=== PATIENT | female | born 1965 | race African-American/Black ===

== ENCOUNTER 2019-04-29 22:43 | Emergency (ER) | payer MEDICAID ==
[~2019-04-29] VITALS: Ht 165.1 cm; Wt 72.0 kg
[2019-04-29] MEDS ORDERED: DIPHENHYDRAMINE 50MG/ML VIAL IV ONE (23:15)
[2019-04-29] MEDS ORDERED: METOCLOPRAMIDE HCL 10MG/2ML VIAL IV ONE (23:15)
[2019-04-30 00:06] LABS: EOSINOPHILS % 0.6 % (0.0-5.0); HEMATOCRIT. 28.5 % (36.0-48.0); HEMOGLOBIN. 9.6 g/dL (12.0-16.0); LYMPHOCYTES % 21.3 % (20.0-50.0); MEAN CORPUSCULAR HEMOGLOBIN 29.5 pg (28.0-32.0); MEAN CORPUSCULAR VOLUME 87.8 fL (81.0-99.0); MEAN PLATELET VOLUME 10.3 fl (7.4-10.4); MONOCYTES % 9.9 % (2.0-8.0); NEUTROPHILS % 67.2 % (40.0-76.0); PLATELET 296 x1000/uL (130-400); RED BLOOD CELL COUNT 3.25 mill/uL (4.2-5.4); RED CELL DISTRIBUTION WIDTH 17.3 % (11.6-14.6)
[2019-04-30 00:12] LABS: CHLORIDE 93 mEq/L (98-107)
[2019-04-30 00:37] LABS: INR 0.9; PROTHROMBIN TIME 9.5 sec (9.6-11.0)
[2019-04-30 00:43] VITALS: BP 192/78
== END 2019-04-30 02:00 | disposition home or self-care (01) ==
LOC: ER 22:43
DX: R51 Headache (principal); I12.0 Hypertensive chronic kidney disease with stage 5 chronic kidney disease or end stage renal disease; N18.6 End stage renal disease; E11.22 Type 2 diabetes mellitus with diabetic chronic kidney disease; E11.65 Type 2 diabetes mellitus with hyperglycemia; D64.9 Anemia, unspecified; Z99.2 Dependence on renal dialysis; Z79.899 Other long term (current) drug therapy
CPT/HCPCS: 36415; 70450; 71045; 80053; 84484; 85025; 85610; 93005; 96374; 96375; 99284; J1200; J2765

== ENCOUNTER 2019-12-08 17:57 | Inpatient (IN) | payer MEDICAID ==
[~2019-12-08] VITALS: Ht 157.5 cm; Wt 55.1 kg
[2019-12-08 19:21] LABS: BASOPHILS % 0.7 % (0.0-2.0); EOSINOPHILS % 0.6 % (0.0-5.0); HEMATOCRIT. 36.8 % (36.0-48.0); LYMPHOCYTES % 18.7 % (20.0-50.0); MEAN CORPUSCULAR HEMOGLOBIN 25.6 pg (28.0-32.0); MEAN CORPUSCULAR VOLUME 78.9 fL (81.0-99.0); MEAN PLATELET VOLUME 9.4 fl (7.4-10.4); MONOCYTES % 8.5 % (2.0-8.0); NEUTROPHILS % 71.5 % (40.0-76.0); PLATELET 289 x1000/uL (130-400); RED BLOOD CELL COUNT 4.67 mill/uL (4.2-5.4); RED CELL DISTRIBUTION WIDTH 17.9 % (11.6-14.6)
[2019-12-08 19:27] LABS: CHLORIDE 98 mEq/L (98-107)
[2019-12-08 19:30] LABS: PROTHROMBIN TIME 9.9 sec (9.6-11.0)
[2019-12-08] MEDS ORDERED: ONDANSETRON HCL 4MG/2ML INJ IV STA (20:48)
[2019-12-08] MEDS ORDERED: MORPHINE SULFATE 4 MG/ML CPJ (NOT FOR IM USE) IV STA (20:48)
[2019-12-08] MEDS ORDERED: ACETAMINOPHEN 325MG TABLET PO PRN (23:00)
[2019-12-08] MEDS ORDERED: ENOXAPARIN 40MG/0.4ML SYR SUBCUT SCH (23:00)
[2019-12-08] MEDS ORDERED: ACETAMINOPHEN WITH CODEINE 300/30MG TABLET PO ONE (23:15)
[2019-12-09] MEDS: HYDROCODONE/ACETAMINOPHEN 5/325MG TABLET PO PRN (04:59)
[2019-12-09 05:51] LABS: BASOPHILS % 0.9 % (0.0-2.0); EOSINOPHILS % 1.3 % (0.0-5.0); HEMATOCRIT. 31.3 % (36.0-48.0); HEMOGLOBIN. 10.4 g/dL (12.0-16.0); MEAN CORPUSCULAR HEMOGLOBIN 26.3 pg (28.0-32.0); MEAN CORPUSCULAR VOLUME 79.6 fL (81.0-99.0); MEAN PLATELET VOLUME 9.6 fl (7.4-10.4); MONOCYTES % 11.4 % (2.0-8.0); NEUTROPHILS % 59.4 % (40.0-76.0); PLATELET 252 x1000/uL (130-400); RED BLOOD CELL COUNT 3.94 mill/uL (4.2-5.4); RED CELL DISTRIBUTION WIDTH 17.9 % (11.6-14.6)
[2019-12-09 06:04] LABS: CHLORIDE 98 mEq/L (98-107)
[2019-12-09 06:11] LABS: LDL CHOLESTEROL 113 mg/dL (5-100)
[2019-12-09 06:12] LABS: CREATINE KINASE 61 IU/L (26-192); HDL CHOLESTEROL 43 mg/dL (40-59)
[2019-12-09 06:15] LABS: CREATINE KINASE MB FRACTION < 1.0 ng/mL (0.5-3.6)
[2019-12-09] MEDS ORDERED: NA PHOS,M-B/NA PHOS,DI-BA ENEMA 118ML PR ONE (07:45)
[2019-12-09] MEDS ORDERED: LACTULOSE 20G/30ML UDC PO ONE (07:45)
[2019-12-09 08:00] VITALS: BP 186/69
[2019-12-09] MEDS ORDERED: LACTULOSE 20G/30ML UDC PO SCH (08:30)
[2019-12-09] MEDS ORDERED: NA PHOS,M-B/NA PHOS,DI-BA ENEMA 118ML PR SCH (08:30)
[2019-12-09] MEDS ORDERED: MINO10TA16 MT (09:15)
[2019-12-09] MEDS ORDERED: ATOR40TA70 MT (09:15)
[2019-12-09] MEDS ORDERED: LOPHC2 MT (09:15)
[2019-12-09] MEDS ORDERED: HYDR100T31 GT (09:15)
[2019-12-09] MEDS ORDERED: ISOS20TA57 PO (09:15)
[2019-12-09] MEDS ORDERED: CLON0.3T4 PO (09:15)
[2019-12-09] MEDS ORDERED: NIFE-32 PO (09:15)
[2019-12-09] MEDS ORDERED: OXYC-662 GT (09:15)
[2019-12-09] MEDS ORDERED: ALPR-340 PO (09:15)
[2019-12-09] MEDS: ENOXAPARIN 30MG/0.3ML SYR SUBCUT SCH (09:45)
[2019-12-09] MEDS: MORPHINE SULFATE 2 MG/ML CPJ (NOT FOR IM USE) IV PRN ×3 (09:46→21:11)
[2019-12-09] MEDS: CLONIDINE 0.1MG TABLET PO PRN (09:46)
[2019-12-09] MEDS ORDERED: REGADENOSON 0.4 MG/5 ML IV NR (10:15)
[2019-12-09] MEDS: ASPIRIN 81MG TABLET PO SCH (10:48)
[2019-12-09 11:22] VITALS: BP 186/69
[2019-12-09 12:00] VITALS: BP_SYST 122; BP_SYST 142; BP_DIAS 65; BP_DIAS 70
[2019-12-09] MEDS ORDERED: DEXTROSE 50% WATER 50ML SYRINGE IV PRN (13:00)
[2019-12-09] MEDS: INSULIN LISPRO 100 UNITS/ML SUBCUT SCH ×3 (13:23→21:00)
[2019-12-09] MEDS: ISOSORBIDE DINITRATE 10MG TABLET PO SCH ×2 (13:23→19:34)
[2019-12-09] MEDS: BLOOD SUGAR DIAGNOSTIC STRIP TEST SCH ×3 (13:26→21:11)
[2019-12-09] MEDS: HYDRALAZINE HCL 50MG TABLET PO SCH ×2 (15:29→22:55)
[2019-12-09 16:00] VITALS: BP 122/65
[2019-12-09 20:00] VITALS: BP 151/61
[2019-12-09 20:30] LABS: T4 FREE 1.68 ng/dL (0.76-1.46)
[2019-12-09] MEDS: ATORVASTATIN CALCIUM 40MG TABLET PO SCH (21:10)
[2019-12-09 22:09] LABS: CREATINE KINASE 55 IU/L (26-192)
[2019-12-09 22:10] LABS: CREATINE KINASE MB FRACTION < 1.0 ng/mL (0.5-3.6)
[2019-12-09] MEDS: ALPRAZOLAM 0.5 MG TABLET PO PRN (23:40)
[2019-12-10] VITALS: BP 159/67
[2019-12-10 04:00] VITALS: BP 163/74
[2019-12-10] MEDS: HYDRALAZINE HCL 50MG TABLET PO SCH ×2 (06:00→15:05)
[2019-12-10] MEDS: BLOOD SUGAR DIAGNOSTIC STRIP TEST SCH ×4 (06:43→20:58)
[2019-12-10 06:57] LABS: BASOPHILS % 0.6 % (0.0-2.0); EOSINOPHILS % 0.9 % (0.0-5.0); HEMATOCRIT. 31.6 % (36.0-48.0); HEMOGLOBIN. 10.3 g/dL (12.0-16.0); LYMPHOCYTES % 20.9 % (20.0-50.0); MEAN CORPUSCULAR VOLUME 79.5 fL (81.0-99.0); MEAN PLATELET VOLUME 9.6 fl (7.4-10.4); MONOCYTES % 11.6 % (2.0-8.0); PLATELET 261 x1000/uL (130-400); RED BLOOD CELL COUNT 3.97 mill/uL (4.2-5.4); RED CELL DISTRIBUTION WIDTH 17.8 % (11.6-14.6)
[2019-12-10] MEDS ORDERED: REGADENOSON 0.4 MG/5 ML IV ONE (07:56)
[2019-12-10 08:00] VITALS: BP 170/71
[2019-12-10] MEDS: ASPIRIN 81MG TABLET PO SCH (08:07)
[2019-12-10] MEDS: ISOSORBIDE DINITRATE 10MG TABLET PO SCH ×3 (08:08→19:00)
[2019-12-10] MEDS: ENOXAPARIN 30MG/0.3ML SYR SUBCUT SCH (08:09)
[2019-12-10] MEDS: INSULIN LISPRO 100 UNITS/ML SUBCUT SCH ×4 (08:10→20:58)
[2019-12-10 12:00] VITALS: BP 162/69
[2019-12-10] MEDS: MORPHINE SULFATE 2 MG/ML CPJ (NOT FOR IM USE) IV PRN (13:01)
[2019-12-10] MEDS: ALPRAZOLAM 0.5 MG TABLET PO PRN (15:05)
[2019-12-10] MEDS: CLONIDINE 0.1MG TABLET PO PRN (15:11)
[2019-12-10] MEDS: ONDANSETRON HCL 4MG/2ML INJ IV PRN (15:55)
[2019-12-10 16:00] VITALS: BP 120/68
[2019-12-10 20:00] VITALS: BP 189/70
[2019-12-10] MEDS: AMLODIPINE 10MG TABLET PO SCH (20:58)
[2019-12-10] MEDS: METOCLOPRAMIDE HCL 10MG/2ML VIAL IV PRN (20:59)
[2019-12-10] MEDS: ATORVASTATIN CALCIUM 40MG TABLET PO SCH (21:00)
[2019-12-10] MEDS: HYDRALAZINE HCL 100MG TABLET PO SCH (21:00)
[2019-12-11] VITALS (7 sets, daily range): BP systolic 152–199; BP diastolic 58–82
[2019-12-11] MEDS: MORPHINE SULFATE 2 MG/ML CPJ (NOT FOR IM USE) IV PRN ×3 (00:15→21:28)
[2019-12-11] MEDS: METOCLOPRAMIDE HCL 10MG/2ML VIAL IV PRN ×3 (02:31→20:10)
[2019-12-11] MEDS: ALPRAZOLAM 0.5 MG TABLET PO PRN (02:31)
[2019-12-11] MEDS: HYDRALAZINE HCL 100MG TABLET PO SCH ×3 (06:28→21:28)
[2019-12-11] MEDS: CLONIDINE 0.1MG TABLET PO PRN (06:28)
[2019-12-11] MEDS: BLOOD SUGAR DIAGNOSTIC STRIP TEST SCH ×4 (06:38→21:36)
[2019-12-11] MEDS: INSULIN LISPRO 100 UNITS/ML SUBCUT SCH ×4 (06:39→21:36)
[2019-12-11] MEDS: ASPIRIN 81MG TABLET PO SCH (08:26)
[2019-12-11] MEDS: AMLODIPINE 10MG TABLET PO SCH (08:26)
[2019-12-11] MEDS: ISOSORBIDE DINITRATE 10MG TABLET PO SCH ×3 (08:26→17:41)
[2019-12-11] MEDS: ENOXAPARIN 30MG/0.3ML SYR SUBCUT SCH (08:28)
[2019-12-11] MEDS ORDERED: CLONIDINE HCL 0.2MG/24HR PATCH TD SCH (09:00)
[2019-12-11] MEDS: PANTOPRAZOLE SODIUM 40 MG/VIAL IV SCH (12:38)
[2019-12-11] MEDS: LABETALOL HCL 200MG TABLET PO SCH ×2 (13:01→21:28)
[2019-12-11] MEDS: ATORVASTATIN CALCIUM 40MG TABLET PO SCH (21:28)
[2019-12-12] VITALS: BP 124/50
[2019-12-12 04:00] VITALS: BP 146/65
[2019-12-12] MEDS: HYDRALAZINE HCL 100MG TABLET PO SCH ×3 (05:05→21:02)
[2019-12-12] MEDS: MORPHINE SULFATE 2 MG/ML CPJ (NOT FOR IM USE) IV PRN ×3 (06:31→20:19)
[2019-12-12 06:44] LABS: BASOPHILS % 0.3 % (0.0-2.0); EOSINOPHILS % 0.1 % (0.0-5.0); HEMATOCRIT. 31.4 % (36.0-48.0); HEMOGLOBIN. 10.2 g/dL (12.0-16.0); LYMPHOCYTES % 11.9 % (20.0-50.0); MEAN CORPUSCULAR HEMOGLOBIN 25.9 pg (28.0-32.0); MEAN CORPUSCULAR VOLUME 79.6 fL (81.0-99.0); MEAN PLATELET VOLUME 9.9 fl (7.4-10.4); NEUTROPHILS % 79.7 % (40.0-76.0); PLATELET 279 x1000/uL (130-400); RED BLOOD CELL COUNT 3.94 mill/uL (4.2-5.4); RED CELL DISTRIBUTION WIDTH 18.4 % (11.6-14.6)
[2019-12-12] MEDS: INSULIN LISPRO 100 UNITS/ML SUBCUT SCH ×4 (07:51→20:20)
[2019-12-12] MEDS: BLOOD SUGAR DIAGNOSTIC STRIP TEST SCH ×4 (07:51→20:19)
[2019-12-12] MEDS: LABETALOL HCL 200MG TABLET PO SCH ×2 (09:00→20:19)
[2019-12-12] MEDS: AMLODIPINE 10MG TABLET PO SCH (09:00)
[2019-12-12] MEDS: ISOSORBIDE DINITRATE 10MG TABLET PO SCH ×3 (09:00→17:10)
[2019-12-12] MEDS ORDERED: IOHEXOL-300 100 ML BOTTLE ONE (09:02)
[2019-12-12] MEDS: ASPIRIN 81MG TABLET PO SCH (09:55)
[2019-12-12] MEDS: PANTOPRAZOLE SODIUM 40 MG/VIAL IV SCH (09:55)
[2019-12-12] MEDS: ENOXAPARIN 30MG/0.3ML SYR SUBCUT SCH (09:59)
[2019-12-12 12:00] VITALS: BP 165/61
[2019-12-12] MEDS: ALPRAZOLAM 0.5 MG TABLET PO PRN (15:06)
[2019-12-12] MEDS: HYDRALAZINE 20MG/ML VIAL IV PRN (15:06)
[2019-12-12] MEDS: ONDANSETRON HCL 4MG/2ML INJ IV PRN (15:39)
[2019-12-12 16:00] VITALS: BP 167/76
[2019-12-12] MEDS: CLONIDINE 0.1MG TABLET PO PRN (17:10)
[2019-12-12] MEDS: METOCLOPRAMIDE HCL 10MG/2ML VIAL IV PRN (17:16)
[2019-12-12] MEDS: HYDROCODONE/ACETAMINOPHEN 5/325MG TABLET PO PRN (17:16)
[2019-12-12 20:00] VITALS: BP 178/63
[2019-12-12] MEDS: ATORVASTATIN CALCIUM 40MG TABLET PO SCH (20:18)
[2019-12-13] VITALS (35 sets, daily range): BP systolic 92–201; BP diastolic 29–119
[2019-12-13] MEDS: HYDRALAZINE HCL 100MG TABLET PO SCH ×3 (05:01→23:02)
[2019-12-13] MEDS: ALPRAZOLAM 0.5 MG TABLET PO PRN (05:40)
[2019-12-13] MEDS: MORPHINE SULFATE 2 MG/ML CPJ (NOT FOR IM USE) IV PRN ×3 (06:03→22:10)
[2019-12-13] MEDS: ONDANSETRON HCL 4MG/2ML INJ IV PRN ×2 (06:06→17:49)
[2019-12-13] MEDS: HYDRALAZINE 20MG/ML VIAL IV PRN (07:42)
[2019-12-13] MEDS: ISOSORBIDE DINITRATE 10MG TABLET PO SCH ×3 (09:00→23:02)
[2019-12-13] MEDS: ENOXAPARIN 30MG/0.3ML SYR SUBCUT SCH (09:49)
[2019-12-13] MEDS: PANTOPRAZOLE SODIUM 40 MG/VIAL IV SCH (09:49)
[2019-12-13] MEDS: ASPIRIN 81MG TABLET PO SCH (09:50)
[2019-12-13] MEDS: LABETALOL HCL 200MG TABLET PO SCH ×2 (09:51→22:08)
[2019-12-13] MEDS: AMLODIPINE 10MG TABLET PO SCH (09:51)
[2019-12-13 10:00] LABS: BG BASE EXCESS -4.8 mmol/L (-2.0-2.0); BG CARBOXYHEMOGLOBIN 0.3 % (0.5-1.5); BG DEOXYHEMOGLOBIN 4.7 % (0.0-5.0); BG FRACTION INSPIRED OXYGEN 21; BG HCO3 ACT 20.6 mmol/L (22.0-26.0); BG METHEMOGLOBIN 0.5 % (0.0-1.5); BG OXYGEN SATURATION 95.3 % (92.0-98.5); BG OXYHEMOGLOBIN 94.5 % (94.0-97.0); BG PCO2 39.3 mmHg (35.0-45.0); BG PH 7.338 (7.350-7.450); BG PO2 86.2 mmHg (75.0-100.0); BG SAMPLE SITE RIGHT BRACHIAL; BG TOTAL HEMOGLOBIN 10.7 g/dL (12.0-18.0); BG VENT MODE ROOM AIR
[2019-12-13 10:45] LABS: HEMATOCRIT. 33.5 % (36.0-48.0); HEMOGLOBIN. 10.7 g/dL (12.0-16.0); MEAN CORPUSCULAR VOLUME 81.4 fL (81.0-99.0); RED BLOOD CELL COUNT 4.11 mill/uL (4.2-5.4); RED CELL DISTRIBUTION WIDTH 18.5 % (11.6-14.6)
[2019-12-13] MEDS: BLOOD SUGAR DIAGNOSTIC STRIP TEST SCH ×3 (11:26→21:00)
[2019-12-13] MEDS: INSULIN LISPRO 100 UNITS/ML SUBCUT SCH ×3 (11:46→22:09)
[2019-12-13] MEDS ORDERED: HEPARIN 100 UNITS/1 ML VIAL IVF PRN (12:00)
[2019-12-13 13:32] LABS: PLATELET ESTIMATE NORMAL
[2019-12-13 13:34] LABS: PLATELET 282 x1000/uL (130-400)
[2019-12-13] MEDS: ATORVASTATIN CALCIUM 40MG TABLET PO SCH (22:08)
[2019-12-14] VITALS (13 sets, daily range): BP systolic 107–175; BP diastolic 39–80
[2019-12-14 05:09] LABS: BASOPHILS % 0.8 % (0.0-2.0); EOSINOPHILS % 0.6 % (0.0-5.0); HEMATOCRIT. 31.4 % (36.0-48.0); HEMOGLOBIN. 10.3 g/dL (12.0-16.0); LYMPHOCYTES % 18.9 % (20.0-50.0); MEAN CORPUSCULAR HEMOGLOBIN 26.2 pg (28.0-32.0); MEAN PLATELET VOLUME 9.9 fl (7.4-10.4); MONOCYTES % 12.6 % (2.0-8.0); NEUTROPHILS % 67.1 % (40.0-76.0); PLATELET 258 x1000/uL (130-400); RED BLOOD CELL COUNT 3.93 mill/uL (4.2-5.4); RED CELL DISTRIBUTION WIDTH 17.9 % (11.6-14.6)
[2019-12-14] MEDS: HYDRALAZINE HCL 100MG TABLET PO SCH ×3 (06:03→21:15)
[2019-12-14] MEDS: BLOOD SUGAR DIAGNOSTIC STRIP TEST SCH ×4 (08:21→21:00)
[2019-12-14] MEDS: INSULIN LISPRO 100 UNITS/ML SUBCUT SCH ×4 (09:29→21:00)
[2019-12-14] MEDS: AMLODIPINE 10MG TABLET PO SCH (09:30)
[2019-12-14] MEDS: LABETALOL HCL 200MG TABLET PO SCH ×2 (09:30→20:18)
[2019-12-14] MEDS: ASPIRIN 81MG TABLET PO SCH (09:30)
[2019-12-14] MEDS: ISOSORBIDE DINITRATE 10MG TABLET PO SCH ×3 (09:30→18:12)
[2019-12-14] MEDS: FAMOTIDINE 20MG/2ML VIAL IV SCH (09:30)
[2019-12-14] MEDS: ENOXAPARIN 30MG/0.3ML SYR SUBCUT SCH (09:31)
[2019-12-14] MEDS: ONDANSETRON HCL 4MG/2ML INJ IV PRN (18:13)
[2019-12-14] MEDS: MORPHINE SULFATE 2 MG/ML CPJ (NOT FOR IM USE) IV PRN (18:14)
[2019-12-14] MEDS: ATORVASTATIN CALCIUM 40MG TABLET PO SCH (20:18)
[2019-12-14] MEDS: ALPRAZOLAM 0.5 MG TABLET PO PRN (21:15)
[2019-12-15] VITALS (8 sets, daily range): BP systolic 130–199; BP diastolic 53–89
[2019-12-15] MEDS ORDERED: ALPRAZOLAM 0.5 MG TABLET PO PRN (00:15)
[2019-12-15] MEDS: MORPHINE SULFATE 2 MG/ML CPJ (NOT FOR IM USE) IV PRN ×2 (03:09→10:47)
[2019-12-15] MEDS: HYDRALAZINE 20MG/ML VIAL IV PRN (04:32)
[2019-12-15] MEDS: HYDRALAZINE HCL 100MG TABLET PO SCH ×2 (06:42→13:22)
[2019-12-15 06:59] LABS: BASOPHILS % 1.1 % (0.0-2.0); HEMATOCRIT. 30.7 % (36.0-48.0); HEMOGLOBIN. 10.2 g/dL (12.0-16.0); LYMPHOCYTES % 14.5 % (20.0-50.0); MEAN CORPUSCULAR HEMOGLOBIN 26.5 pg (28.0-32.0); MEAN CORPUSCULAR VOLUME 79.7 fL (81.0-99.0); MEAN PLATELET VOLUME 10.3 fl (7.4-10.4); MONOCYTES % 11.8 % (2.0-8.0); NEUTROPHILS % 71.6 % (40.0-76.0); PLATELET 251 x1000/uL (130-400); RED BLOOD CELL COUNT 3.85 mill/uL (4.2-5.4); RED CELL DISTRIBUTION WIDTH 18.2 % (11.6-14.6)
[2019-12-15] MEDS: BLOOD SUGAR DIAGNOSTIC STRIP TEST SCH ×2 (07:36→13:14)
[2019-12-15] MEDS: FAMOTIDINE 20MG/2ML VIAL IV SCH (10:01)
[2019-12-15] MEDS: ENOXAPARIN 30MG/0.3ML SYR SUBCUT SCH (10:01)
[2019-12-15] MEDS: ISOSORBIDE DINITRATE 10MG TABLET PO SCH ×2 (10:02→13:21)
[2019-12-15] MEDS: LABETALOL HCL 200MG TABLET PO SCH (10:02)
[2019-12-15] MEDS: ASPIRIN 81MG TABLET PO SCH (10:02)
[2019-12-15] MEDS: AMLODIPINE 10MG TABLET PO SCH (10:03)
[2019-12-15] MEDS: INSULIN LISPRO 100 UNITS/ML SUBCUT SCH ×2 (10:04→13:23)
[2019-12-15] MEDS ORDERED: PRO1 MT (12:11)
[2019-12-15] MEDS ORDERED: ISOS20TA57 MT (12:11)
[2019-12-15] MEDS ORDERED: ATOR40TA70 MT (12:11)
[2019-12-15] MEDS ORDERED: HYDR100T26 MT (12:11)
[2019-12-15] MEDS ORDERED: OXYC-662 MT (12:11)
[2019-12-15] MEDS ORDERED: ALPR0.5T MT (12:11)
[2019-12-15] MEDS ORDERED: CLON0.3T4 MT (12:11)
== END 2019-12-15 14:16 | disposition home or self-care (01) | DRG 203 ==
LOC: ER 17:57 → 7WST 22:26 → EDBEDREQ 22:28 → EDBEDREQTM 22:28 → ENRESERV 12-09 07:45 → MICUSO 12-13 06:52 → 5EST 12-13 15:15
PROVIDERS: ADMIT Hospitalist; ATTEND Hospitalist
PROC: 5A1D70Z Performance of Urinary Filtration, Intermittent, Less than 6 Hours Per Day (ICD-10-PCS; 2019-12-10)
PROC: 5A1D70Z Performance of Urinary Filtration, Intermittent, Less than 6 Hours Per Day (ICD-10-PCS; 2019-12-12)
PROC: 02HV33Z Insertion of Infusion Device into Superior Vena Cava, Percutaneous Approach (ICD-10-PCS; principal; 2019-12-13)
PROC: B548ZZA Ultrasonography of Superior Vena Cava, Guidance (ICD-10-PCS; 2019-12-13)
PROC: 5A1D70Z Performance of Urinary Filtration, Intermittent, Less than 6 Hours Per Day (ICD-10-PCS; 2019-12-14)
DX: M94.0 Chondrocostal junction syndrome [Tietze] (principal); E11.22 Type 2 diabetes mellitus with diabetic chronic kidney disease; I12.0 Hypertensive chronic kidney disease with stage 5 chronic kidney disease or end stage renal disease; K86.1 Other chronic pancreatitis; N18.6 End stage renal disease; R56.9 Unspecified convulsions; R07.89 Other chest pain; I16.0 Hypertensive urgency; I25.10 Atherosclerotic heart disease of native coronary artery without angina pectoris; D64.9 Anemia, unspecified; E78.5 Hyperlipidemia, unspecified; K59.00 Constipation, unspecified; N28.89 Other specified disorders of kidney and ureter; G89.4 Chronic pain syndrome; Z99.2 Dependence on renal dialysis; Z79.899 Other long term (current) drug therapy
CPT/HCPCS: 36415; 36573; 36600; 71045; 74018; 74176; 74177; 76770; 78452; 80048; 80053; 80061; 82375; 82550; 82553; 82805; 82962; 83036; 83880; 84439; 84443; 84484; 85025; 85379; 93005; 93017; 93306; 93970; 96372; 96374; 96375; 99285; A9558; C1725; C1893; C9113; J0360; J1650; J1815; J2270; J2405; J2765; J2785; J3490; Q9967

== ENCOUNTER 2020-04-14 03:26 | Inpatient (IN) | payer MEDICAID ==
[~2020-04-14] VITALS: Ht 156.2 cm; Wt 63.5 kg
[~2020-04-14 03:26] MED LIST: ALPR-340 PO; ALPR0.5T MT; ATOR40TA70 MT; CLON0.3T4 MT; CLON0.3T4 PO; HYDR100T26 MT; HYDR100T31 GT; ISOS20TA57 MT; ISOS20TA57 PO; LOPHC2 MT; MINO10TA16 MT; NIFE-32 PO; OXYC-662 GT; OXYC-662 MT; PRO1 MT
[2020-04-14] MEDS ORDERED: ASPIRIN 81MG TABLET PO ONE (03:45)
[2020-04-14] MEDS ORDERED: NITROGLYCERIN 0.4MG TABLET SL SL PRN ×2 (03:45→06:15)
[2020-04-14] MEDS ORDERED: FUROSEMIDE 40MG/4ML VIAL IVP ONE ×2 (03:45→05:30)
[2020-04-14 04:09] LABS: BASOPHILS % 0.8 % (0.0-2.0); EOSINOPHILS % 1.5 % (0.0-5.0); HEMOGLOBIN. 11.9 g/dL (12.0-16.0); LYMPHOCYTES % 12.5 % (20.0-50.0); MEAN CORPUSCULAR VOLUME 79.6 fL (81.0-99.0); MEAN PLATELET VOLUME 9.1 fl (7.4-10.4); MONOCYTES % 6.8 % (2.0-8.0); NEUTROPHILS % 78.4 % (40.0-76.0); PLATELET 244 x1000/uL (130-400); RED CELL DISTRIBUTION WIDTH 18.3 % (11.6-14.6)
[2020-04-14 04:14] LABS: CHLORIDE 99 mEq/L (98-107)
[2020-04-14] MEDS ORDERED: ACETAMINOPHEN 325MG TABLET PO PRN ×2 (06:15)
[2020-04-14] MEDS ORDERED: IPRATROPIUM/ALBUTEROL 0.5-3(2.5)MG/3ML NEB ORI PRN (06:15)
[2020-04-14] MEDS ORDERED: DOCUSATE SODIUM 100MG CAPSULE PO PRN (06:15)
[2020-04-14] MEDS ORDERED: LORAZEPAM 0.5MG TABLET PO PRN (06:15)
[2020-04-14] MEDS ORDERED: ONDANSETRON HCL 4MG/2ML INJ IV PRN (06:15)
[2020-04-14] MEDS ORDERED: GUAIFENESIN 200MG/10ML SUGAR FREE UDC PO PRN (06:15)
[2020-04-14] MEDS ORDERED: MAGNESIUM/ALUMINUM HYDROXIDE/SIMETHICONE 30ML UDC PO PRN (06:15)
[2020-04-14] MEDS: METOPROLOL TARTRATE 25MG TABLET PO SCH ×2 (08:24→20:03)
[2020-04-14] MEDS: AMLODIPINE 10MG TABLET PO SCH ×2 (08:24→09:00)
[2020-04-14] MEDS: ENOXAPARIN 30MG/0.3ML SYR SUBCUT SCH (08:25)
[2020-04-14] MEDS: ASPIRIN 325MG EC TABLET PO SCH (09:15)
[2020-04-14] MEDS: ASCORBIC ACID 500 MG TABLET PO SCH ×2 (09:16→20:03)
[2020-04-14] MEDS: FAMOTIDINE 20MG TABLET PO SCH (09:16)
[2020-04-14] MEDS: SEVELAMER CARBONATE 800 MG TABLET PO SCH ×3 (09:16→17:13)
[2020-04-14] MEDS: BLOOD SUGAR DIAGNOSTIC STRIP TEST SCH ×4 (09:16→21:00)
[2020-04-14] MEDS: TRAMADOL 50MG TABLET PO PRN ×2 (09:20→19:53)
[2020-04-14] MEDS: ZINC SULFATE 220 MG ( 50 ) CAPSULE PO SCH (09:21)
[2020-04-14] MEDS: INSULIN LISPRO 100 UNITS/ML SUBCUT SCH ×4 (09:22→21:00)
[2020-04-14] MEDS: HYDRALAZINE HCL 50MG TABLET PO SCH ×2 (11:18→22:18)
[2020-04-14] MEDS: NITROGLYCERIN OINT 1GM/INCH UDPKT TD SCH ×2 (14:00→22:08)
[2020-04-14] MEDS: CLONIDINE 0.1MG TABLET PO PRN ×2 (15:30→17:14)
[2020-04-14 17:00] VITALS: BP 196/87
[2020-04-14] MEDS: DIPHENHYDRAMINE 50MG/ML VIAL IV PRN (17:29)
[2020-04-14 20:00] VITALS: BP 206/92
[2020-04-14] MEDS: MINOXIDIL 2.5MG TABLET PO SCH (20:03)
[2020-04-14 20:20] LABS: CREATINE KINASE 96 IU/L (26-192)
[2020-04-14 20:21] LABS: CREATINE KINASE MB FRACTION < 1.0 ng/mL (0.5-3.6)
[2020-04-14 21:00] VITALS: BP 197/82
[2020-04-14] MEDS ORDERED: PNEUMOCOCCAL 23-VAL P-SAC VAC 0.5 ML IM ONE (21:00)
[2020-04-14] MEDS ORDERED: INSULIN GLARGINE UD 100 UNITS/ML SYR SUBCUT SCH ×2 (22:00→23:00)
[2020-04-14 23:50] LABS: CREATINE KINASE 100 IU/L (26-192); CREATINE KINASE MB FRACTION < 1.0 ng/mL (0.5-3.6)
[2020-04-15] VITALS (8 sets, daily range): BP systolic 192–255; BP diastolic 85–100
[2020-04-15] MEDS: CLONIDINE 0.1MG TABLET PO PRN ×2 (01:08→17:19)
[2020-04-15] MEDS: DEXTROSE 50% WATER 50ML SYRINGE IV PRN ×2 (02:17→06:51)
[2020-04-15] MEDS: DIPHENHYDRAMINE 50MG/ML VIAL IV PRN ×3 (02:40→21:11)
[2020-04-15] MEDS: NITROGLYCERIN OINT 1GM/INCH UDPKT TD SCH ×3 (05:00→21:11)
[2020-04-15] MEDS: HYDRALAZINE HCL 50MG TABLET PO SCH ×2 (05:00→12:16)
[2020-04-15 06:36] LABS: BASOPHILS % 0.7 % (0.0-2.0); HEMATOCRIT. 32.6 % (36.0-48.0); LYMPHOCYTES % 8.6 % (20.0-50.0); MEAN CORPUSCULAR HEMOGLOBIN 26.6 pg (28.0-32.0); MEAN PLATELET VOLUME 9.4 fl (7.4-10.4); MONOCYTES % 6.1 % (2.0-8.0); NEUTROPHILS % 83.6 % (40.0-76.0); PLATELET 253 x1000/uL (130-400); RED BLOOD CELL COUNT 4.12 mill/uL (4.2-5.4); RED CELL DISTRIBUTION WIDTH 18.8 % (11.6-14.6)
[2020-04-15] MEDS: SEVELAMER CARBONATE 800 MG TABLET PO SCH ×3 (06:51→17:19)
[2020-04-15] MEDS: INSULIN LISPRO 100 UNITS/ML SUBCUT SCH ×4 (06:51→20:44)
[2020-04-15] MEDS: BLOOD SUGAR DIAGNOSTIC STRIP TEST SCH ×4 (06:51→20:44)
[2020-04-15] MEDS: ENOXAPARIN 30MG/0.3ML SYR SUBCUT SCH (08:00)
[2020-04-15] MEDS: ZINC SULFATE 220 MG ( 50 ) CAPSULE PO SCH (10:00)
[2020-04-15] MEDS: ASCORBIC ACID 500 MG TABLET PO SCH ×2 (10:00→21:12)
[2020-04-15] MEDS: ASPIRIN 325MG EC TABLET PO SCH (10:00)
[2020-04-15] MEDS: FAMOTIDINE 20MG TABLET PO SCH (10:01)
[2020-04-15] MEDS: MINOXIDIL 2.5MG TABLET PO SCH (10:01)
[2020-04-15] MEDS: AMLODIPINE 10MG TABLET PO SCH (10:02)
[2020-04-15] MEDS: METOPROLOL TARTRATE 25MG TABLET PO SCH ×2 (10:02→21:12)
[2020-04-15] MEDS ORDERED: MINOXIDIL 2.5MG TABLET PO NR (12:30)
[2020-04-15] MEDS: HYDRALAZINE HCL 100MG TABLET PO SCH ×2 (14:15→21:14)
[2020-04-15] MEDS: CLONIDINE 0.3MG TABLET PO SCH (18:40)
[2020-04-15] MEDS: ZOLPIDEM TARTRATE 5MG TABLET PO PRN (21:13)
[2020-04-15] MEDS: MINOXIDIL 10MG TABLET PO SCH (21:14)
[2020-04-15] MEDS: INSULIN GLARGINE UD 100 UNITS/ML SYR SUBCUT SCH (21:14)
[2020-04-16] VITALS (7 sets, daily range): BP systolic 145–188; BP diastolic 63–86
[2020-04-16] MEDS: CLONIDINE 0.3MG TABLET PO SCH ×4 (00:56→21:15)
[2020-04-16] MEDS: CLONIDINE 0.1MG TABLET PO PRN ×2 (00:57→21:15)
[2020-04-16] MEDS: HYDRALAZINE HCL 100MG TABLET PO SCH ×3 (05:59→21:16)
[2020-04-16] MEDS: NITROGLYCERIN OINT 1GM/INCH UDPKT TD SCH ×3 (06:00→21:21)
[2020-04-16] MEDS: BLOOD SUGAR DIAGNOSTIC STRIP TEST SCH ×4 (06:29→21:16)
[2020-04-16 07:21] LABS: BASOPHILS % 1.2 % (0.0-2.0); EOSINOPHILS % 1.8 % (0.0-5.0); HEMATOCRIT. 31.8 % (36.0-48.0); HEMOGLOBIN. 10.6 g/dL (12.0-16.0); LYMPHOCYTES % 17.9 % (20.0-50.0); MEAN CORPUSCULAR HEMOGLOBIN 26.3 pg (28.0-32.0); MEAN CORPUSCULAR VOLUME 78.8 fL (81.0-99.0); MEAN PLATELET VOLUME 9.5 fl (7.4-10.4); MONOCYTES % 10.9 % (2.0-8.0); NEUTROPHILS % 68.2 % (40.0-76.0); PLATELET 225 x1000/uL (130-400); RED BLOOD CELL COUNT 4.04 mill/uL (4.2-5.4); RED CELL DISTRIBUTION WIDTH 18.4 % (11.6-14.6)
[2020-04-16] MEDS: INSULIN LISPRO 100 UNITS/ML SUBCUT SCH ×4 (08:26→21:26)
[2020-04-16] MEDS: SEVELAMER CARBONATE 800 MG TABLET PO SCH ×3 (08:27→17:25)
[2020-04-16] MEDS: ZINC SULFATE 220 MG ( 50 ) CAPSULE PO SCH (08:42)
[2020-04-16] MEDS: ASCORBIC ACID 500 MG TABLET PO SCH ×2 (08:42→21:15)
[2020-04-16] MEDS: ASPIRIN 325MG EC TABLET PO SCH (08:42)
[2020-04-16] MEDS: FAMOTIDINE 20MG TABLET PO SCH (08:42)
[2020-04-16] MEDS: AMLODIPINE 10MG TABLET PO SCH (08:47)
[2020-04-16] MEDS: MINOXIDIL 10MG TABLET PO SCH ×2 (08:47→21:16)
[2020-04-16] MEDS: ENOXAPARIN 30MG/0.3ML SYR SUBCUT SCH (08:48)
[2020-04-16] MEDS: METOPROLOL TARTRATE 25MG TABLET PO SCH ×2 (08:48→21:15)
[2020-04-16] MEDS: DIPHENHYDRAMINE 50MG/ML VIAL IV PRN (16:48)
[2020-04-16] MEDS: ZOLPIDEM TARTRATE 5MG TABLET PO PRN (21:16)
[2020-04-16] MEDS: INSULIN GLARGINE UD 100 UNITS/ML SYR SUBCUT SCH (21:20)
[2020-04-17] VITALS: BP 148/70
[2020-04-17] MEDS: DIPHENHYDRAMINE 50MG/ML VIAL IV PRN ×2 (00:07→21:35)
[2020-04-17 04:00] VITALS: BP 164/75
[2020-04-17] MEDS: CLONIDINE 0.1MG TABLET PO PRN ×2 (04:26→21:35)
[2020-04-17 06:14] LABS: EOSINOPHILS % 2.5 % (0.0-5.0); HEMATOCRIT. 29.6 % (36.0-48.0); HEMOGLOBIN. 9.9 g/dL (12.0-16.0); MEAN CORPUSCULAR HEMOGLOBIN 26.4 pg (28.0-32.0); MEAN CORPUSCULAR VOLUME 78.7 fL (81.0-99.0); MEAN PLATELET VOLUME 9.6 fl (7.4-10.4); MONOCYTES % 10.2 % (2.0-8.0); NEUTROPHILS % 67.3 % (40.0-76.0); PLATELET 215 x1000/uL (130-400); RED BLOOD CELL COUNT 3.76 mill/uL (4.2-5.4); RED CELL DISTRIBUTION WIDTH 18.4 % (11.6-14.6)
[2020-04-17] MEDS: BLOOD SUGAR DIAGNOSTIC STRIP TEST SCH ×4 (06:26→21:18)
[2020-04-17] MEDS: HYDRALAZINE HCL 100MG TABLET PO SCH ×3 (06:26→14:17)
[2020-04-17] MEDS: NITROGLYCERIN OINT 1GM/INCH UDPKT TD SCH ×3 (06:26→14:17)
[2020-04-17] MEDS: CLONIDINE 0.3MG TABLET PO SCH ×3 (06:26→14:16)
[2020-04-17 08:00] VITALS: BP 158/79
[2020-04-17] MEDS: INSULIN LISPRO 100 UNITS/ML SUBCUT SCH ×4 (08:39→22:01)
[2020-04-17] MEDS: AMLODIPINE 10MG TABLET PO SCH (09:00)
[2020-04-17] MEDS: METOPROLOL TARTRATE 25MG TABLET PO SCH ×2 (09:00→21:34)
[2020-04-17] MEDS: MINOXIDIL 10MG TABLET PO SCH ×2 (09:00→21:34)
[2020-04-17] MEDS: ZINC SULFATE 220 MG ( 50 ) CAPSULE PO SCH (09:40)
[2020-04-17] MEDS: ASCORBIC ACID 500 MG TABLET PO SCH ×2 (09:40→21:34)
[2020-04-17] MEDS: SEVELAMER CARBONATE 800 MG TABLET PO SCH ×3 (09:40→17:15)
[2020-04-17] MEDS: ASPIRIN 325MG EC TABLET PO SCH (09:40)
[2020-04-17] MEDS: FAMOTIDINE 20MG TABLET PO SCH (09:40)
[2020-04-17] MEDS: ENOXAPARIN 30MG/0.3ML SYR SUBCUT SCH (09:41)
[2020-04-17 12:06] VITALS: BP 130/68
[2020-04-17] MEDS: ZOLPIDEM TARTRATE 5MG TABLET PO PRN ×2 (21:35→21:44)
[2020-04-17] MEDS: INSULIN GLARGINE UD 100 UNITS/ML SYR SUBCUT SCH (22:02)
[2020-04-18 01:47] VITALS: BP 171/81
[2020-04-18 04:00] VITALS: BP 128/63
[2020-04-18] MEDS: NITROGLYCERIN OINT 1GM/INCH UDPKT TD SCH (06:14)
[2020-04-18] MEDS: HYDRALAZINE HCL 100MG TABLET PO SCH (06:14)
[2020-04-18] MEDS: CLONIDINE 0.3MG TABLET PO SCH (06:14)
[2020-04-18] MEDS: BLOOD SUGAR DIAGNOSTIC STRIP TEST SCH (06:26)
[2020-04-18] MEDS: INSULIN LISPRO 100 UNITS/ML SUBCUT SCH (07:50)
[2020-04-18 08:34] VITALS: BP 166/78
[2020-04-18] MEDS: MINOXIDIL 10MG TABLET PO SCH (09:00)
[2020-04-18] MEDS ORDERED: NIFE90TA60 MT (09:15)
[2020-04-18] MEDS: FAMOTIDINE 20MG TABLET PO SCH (10:06)
[2020-04-18] MEDS: SEVELAMER CARBONATE 800 MG TABLET PO SCH (10:06)
[2020-04-18] MEDS: ASPIRIN 325MG EC TABLET PO SCH (10:07)
[2020-04-18] MEDS: AMLODIPINE 10MG TABLET PO SCH (10:07)
[2020-04-18] MEDS: METOPROLOL TARTRATE 25MG TABLET PO SCH (10:07)
[2020-04-18] MEDS: ZINC SULFATE 220 MG ( 50 ) CAPSULE PO SCH (10:07)
[2020-04-18] MEDS: ASCORBIC ACID 500 MG TABLET PO SCH (10:07)
[2020-04-18] MEDS: ENOXAPARIN 30MG/0.3ML SYR SUBCUT SCH (10:08)
[2020-04-18 10:48] VITALS: BP 146/68
[2020-04-26] MEDS ORDERED: ZOLP5TAB2 PO (19:14)
== END 2020-04-18 12:10 | disposition home or self-care (01) | DRG 133 ==
LOC: ER 03:26 → 6WST 04:44 → SUPCPDRO 15:06 → ENRESERV 15:11
PROVIDERS: ADMIT Internal Medicine; ATTEND Internal Medicine
PROC: 5A1D70Z Performance of Urinary Filtration, Intermittent, Less than 6 Hours Per Day (ICD-10-PCS; 2020-04-14)
PROC: 5A1D70Z Performance of Urinary Filtration, Intermittent, Less than 6 Hours Per Day (ICD-10-PCS; principal; 2020-04-15)
PROC: 5A1D70Z Performance of Urinary Filtration, Intermittent, Less than 6 Hours Per Day (ICD-10-PCS; 2020-04-17)
DX: J96.00 Acute respiratory failure, unspecified whether with hypoxia or hypercapnia (principal); I13.2 Hypertensive heart and chronic kidney disease with heart failure and with stage 5 chronic kidney disease, or end stage renal disease; E11.22 Type 2 diabetes mellitus with diabetic chronic kidney disease; N18.6 End stage renal disease; K76.1 Chronic passive congestion of liver; E11.65 Type 2 diabetes mellitus with hyperglycemia; I16.1 Hypertensive emergency; I50.43 Acute on chronic combined systolic (congestive) and diastolic (congestive) heart failure; D63.8 Anemia in other chronic diseases classified elsewhere; Z99.2 Dependence on renal dialysis; Z79.899 Other long term (current) drug therapy; R74.0 Nonspecific elevation of levels of transaminase and lactic acid dehydrogenase [LDH]
CPT/HCPCS: 36415; 71045; 80048; 80053; 80061; 82550; 82553; 82962; 83036; 83880; 84484; 85025; 90732; 93005; 93970; 99291; J1200; J1650; J1815; J1940

== ENCOUNTER 2020-04-24 00:55 | Emergency (ER) | payer MEDICAID ==
[~2020-04-24] VITALS: Ht 160 cm; Wt 64.0 kg
[~2020-04-24 00:55] MED LIST changes: -ALPR-340 PO; -ALPR0.5T MT; -CLON0.3T4 PO; -HYDR100T26 MT; -ISOS20TA57 MT; -NIFE-32 PO; +NIFE90TA60 MT; -OXYC-662 GT; -OXYC-662 MT; -PRO1 MT
[2020-04-24] MEDS ORDERED: ASPIRIN 81MG TABLET PO ONE (02:00)
[2020-04-24 03:08] LABS: BASOPHILS % 1.1 % (0.0-2.0); EOSINOPHILS % 1.7 % (0.0-5.0); HEMATOCRIT. 30.6 % (36.0-48.0); HEMOGLOBIN. 10.3 g/dL (12.0-16.0); LYMPHOCYTES % 11.8 % (20.0-50.0); MEAN CORPUSCULAR HEMOGLOBIN 26.6 pg (28.0-32.0); MEAN CORPUSCULAR VOLUME 79.2 fL (81.0-99.0); MEAN PLATELET VOLUME 9.3 fl (7.4-10.4); MONOCYTES % 8.5 % (2.0-8.0); NEUTROPHILS % 76.9 % (40.0-76.0); PLATELET 336 x1000/uL (130-400); RED BLOOD CELL COUNT 3.87 mill/uL (4.2-5.4); RED CELL DISTRIBUTION WIDTH 19.7 % (11.6-14.6)
[2020-04-24 03:10] LABS: CHLORIDE 98 mEq/L (98-107)
[2020-04-24] MEDS ORDERED: LORAZEPAM 2MG/ML CPJ IV ONE (04:15)
[2020-04-24] MEDS ORDERED: HYDROCODONE/ACETAMINOPHEN 5/325MG TABLET PO ONE (05:00)
[2020-04-24 05:30] VITALS: BP 153/79
[2020-04-26] MEDS ORDERED: ZOLP5TAB2 PO (19:14)
== END 2020-04-24 06:01 | disposition home or self-care (01) ==
LOC: ER 00:55
DX: I12.0 Hypertensive chronic kidney disease with stage 5 chronic kidney disease or end stage renal disease (principal); E11.22 Type 2 diabetes mellitus with diabetic chronic kidney disease; N18.6 End stage renal disease; Z99.2 Dependence on renal dialysis; F41.9 Anxiety disorder, unspecified; Z79.899 Other long term (current) drug therapy
CPT/HCPCS: 36415; 71045; 80053; 83880; 84484; 85025; 93005; 96374; 99285; J2060; Z7610

== ENCOUNTER 2020-04-30 12:01 | Inpatient (IN) | payer MEDICAID ==
[~2020-04-30] VITALS: Ht 154.9 cm; Wt 49.0 kg
[~2020-04-30 12:01] MED LIST changes: +ZOLP5TAB2 PO
[2020-04-30 13:00] LABS: CHLORIDE 84 mEq/L (98-107)
[2020-04-30 13:01] LABS: HEMATOCRIT. 29.2 % (36.0-48.0); HEMOGLOBIN. 9.6 g/dL (12.0-16.0); MEAN CORPUSCULAR HEMOGLOBIN 26.8 pg (28.0-32.0); MEAN CORPUSCULAR VOLUME 81.3 fL (81.0-99.0); MEAN PLATELET VOLUME 9.3 fl (7.4-10.4); PLATELET 374 x1000/uL (130-400); RED BLOOD CELL COUNT 3.59 mill/uL (4.2-5.4); RED CELL DISTRIBUTION WIDTH 20.1 % (11.6-14.6)
[2020-04-30 13:29] LABS: BG CARBOXYHEMOGLOBIN 0.5 % (0.5-1.5); BG DEOXYHEMOGLOBIN 11.6 % (0.0-5.0); BG FRACTION INSPIRED OXYGEN 40; BG HCO3 ACT 29.4 mmol/L (22.0-26.0); BG OXYGEN SATURATION 88.3 % (92.0-98.5); BG OXYHEMOGLOBIN 87.9 % (94.0-97.0); BG PCO2 43.2 mmHg (35.0-45.0); BG PH 7.451 (7.350-7.450); BG SAMPLE SITE RIGHT BRACHIAL; BG TOTAL HEMOGLOBIN 8.8 g/dL (12.0-18.0); BG VENT MODE NASAL CANNULA
[2020-04-30 14:00] LABS: PLATELET ESTIMATE NORMAL
[2020-04-30] MEDS ORDERED: SODIUM CHLORIDE 0.9% 500 ML IV ONE (14:22)
[2020-04-30] MEDS ORDERED: MORPHINE SULFATE 4 MG/ML CPJ (NOT FOR IM USE) IV ONE (14:30)
[2020-04-30] MEDS ORDERED: INSULIN REGULAR (HUMULIN R) 300UNITS/3ML IV ONE (14:30)
[2020-04-30] MEDS ORDERED: LEVOFLOXACIN 750MG PREMIX 150 ML IV ONE (15:00)
[2020-04-30] MEDS ORDERED: DOCUSATE SODIUM 100MG CAPSULE PO PRN (18:30)
[2020-04-30] MEDS ORDERED: ACETAMINOPHEN 650MG/20.3ML UDC GT PRN ×2 (18:30)
[2020-04-30] MEDS ORDERED: ONDANSETRON HCL 4MG/2ML INJ IV PRN (18:30)
[2020-04-30] MEDS ORDERED: ACETAMINOPHEN 650MG SUPP PR PRN ×2 (18:30)
[2020-04-30] MEDS ORDERED: GUAIFENESIN 200MG/10ML SUGAR FREE UDC PO PRN (18:30)
[2020-04-30] MEDS ORDERED: DIPHENHYDRAMINE 50MG/ML VIAL IV PRN (18:30)
[2020-04-30] MEDS ORDERED: MAGNESIUM/ALUMINUM HYDROXIDE/SIMETHICONE 30ML UDC PO PRN (18:30)
[2020-04-30] MEDS: ENOXAPARIN 30MG/0.3ML SYR SUBCUT SCH (18:51)
[2020-04-30] MEDS ORDERED: DEXTROSE 50% WATER 50ML SYRINGE IV PRN (19:00)
[2020-04-30] MEDS: CLONIDINE 0.1MG TABLET PO PRN (20:09)
[2020-04-30 21:20] VITALS: BP 143/103
[2020-04-30] MEDS: MORPHINE SULFATE 2 MG/ML CPJ (NOT FOR IM USE) IV PRN (21:42)
[2020-04-30] MEDS: INSULIN LISPRO 100 UNITS/ML SUBCUT SCH (21:43)
[2020-04-30] MEDS: SODIUM CHLORIDE 0.9% INJ 3ML FLUSH IVF SCH (21:43)
[2020-04-30] MEDS: BLOOD SUGAR DIAGNOSTIC STRIP TEST SCH (21:43)
[2020-04-30 23:13] LABS: D-DIMER 1.65 mg/L FEU (<0.50); PROTHROMBIN TIME 10.3 sec (9.6-11.0)
[2020-04-30 23:20] LABS: CREATINE KINASE 137 IU/L (26-192)
[2020-04-30 23:21] LABS: CREATINE KINASE MB FRACTION < 1.0 ng/mL (0.5-3.6)
[2020-04-30] MEDS: METOCLOPRAMIDE HCL 10MG/2ML VIAL IV SCH (23:30)
[2020-05-01] VITALS: BP 148/72
[2020-05-01 04:00] VITALS: BP 185/80
[2020-05-01] MEDS: MORPHINE SULFATE 2 MG/ML CPJ (NOT FOR IM USE) IV PRN ×3 (04:01→19:33)
[2020-05-01] MEDS: SODIUM CHLORIDE 0.9% INJ 3ML FLUSH IVF SCH ×3 (06:26→22:07)
[2020-05-01] MEDS: METOCLOPRAMIDE HCL 10MG/2ML VIAL IV SCH ×4 (06:26→23:06)
[2020-05-01] MEDS: BLOOD SUGAR DIAGNOSTIC STRIP TEST SCH ×4 (06:41→21:00)
[2020-05-01] MEDS ORDERED: MORPHINE SULFATE 2 MG/ML CPJ (NOT FOR IM USE) IV NR (07:12)
[2020-05-01 08:00] VITALS: BP 160/67
[2020-05-01] MEDS: INSULIN LISPRO 100 UNITS/ML SUBCUT SCH ×4 (08:10→22:36)
[2020-05-01] MEDS ORDERED: BISACODYL 5MG TABLET PO SCH (08:45)
[2020-05-01] MEDS ORDERED: BISACODYL 10MG SUPP PR PRN (08:45)
[2020-05-01] MEDS ORDERED: BISACODYL 5MG TABLET PO PRN (08:45)
[2020-05-01 10:48] LABS: CHLORIDE 96 mEq/L (98-107)
[2020-05-01 10:49] LABS: BASOPHILS % 0.6 % (0.0-2.0); EOSINOPHILS % 0.1 % (0.0-5.0); HEMATOCRIT. 26.3 % (36.0-48.0); HEMOGLOBIN. 8.7 g/dL (12.0-16.0); LYMPHOCYTES % 8.1 % (20.0-50.0); MEAN CORPUSCULAR HEMOGLOBIN 26.9 pg (28.0-32.0); MEAN CORPUSCULAR VOLUME 80.9 fL (81.0-99.0); MEAN PLATELET VOLUME 9.2 fl (7.4-10.4); MONOCYTES % 6.8 % (2.0-8.0); NEUTROPHILS % 84.4 % (40.0-76.0); PLATELET 310 x1000/uL (130-400); RED BLOOD CELL COUNT 3.25 mill/uL (4.2-5.4); RED CELL DISTRIBUTION WIDTH 19.3 % (11.6-14.6)
[2020-05-01 10:55] LABS: LDL CHOLESTEROL 94 mg/dL (5-100)
[2020-05-01 10:56] LABS: CREATINE KINASE 72 IU/L (26-192); T4 FREE 1.31 ng/dL (0.76-1.46)
[2020-05-01 10:57] LABS: HDL CHOLESTEROL 65 mg/dL (40-59)
[2020-05-01 10:59] LABS: CREATINE KINASE MB FRACTION < 1.0 ng/mL (0.5-3.6)
[2020-05-01 12:00] VITALS: BP 177/65
[2020-05-01] MEDS: ACETAMINOPHEN 325MG TABLET PO PRN (13:18)
[2020-05-01 16:00] VITALS: BP 149/95
[2020-05-01] MEDS: ENOXAPARIN 30MG/0.3ML SYR SUBCUT SCH (18:11)
[2020-05-01 20:00] VITALS: BP 155/87
[2020-05-02] VITALS: BP 183/97
[2020-05-02] MEDS: HYDROCODONE/ACETAMINOPHEN 5/325MG TABLET PO PRN ×3 (01:03→21:32)
[2020-05-02] MEDS: CLONIDINE 0.1MG TABLET PO PRN (01:04)
[2020-05-02 04:00] VITALS: BP 194/66
[2020-05-02] MEDS: HYDRALAZINE HCL 50MG TABLET PO SCH ×3 (05:56→21:05)
[2020-05-02] MEDS: METOCLOPRAMIDE HCL 10MG/2ML VIAL IV SCH ×4 (05:56→21:05)
[2020-05-02] MEDS: SODIUM CHLORIDE 0.9% INJ 3ML FLUSH IVF SCH ×3 (05:56→21:06)
[2020-05-02] MEDS: BLOOD SUGAR DIAGNOSTIC STRIP TEST SCH ×4 (06:52→21:25)
[2020-05-02] MEDS ORDERED: CLONIDINE 0.1MG TABLET PO SCH (08:00)
[2020-05-02] MEDS: INSULIN LISPRO 100 UNITS/ML SUBCUT SCH ×4 (08:20→23:33)
[2020-05-02 08:37] VITALS: BP 204/90
[2020-05-02] MEDS: ACETAMINOPHEN 325MG TABLET PO PRN (08:44)
[2020-05-02] MEDS: CLONIDINE 0.1MG TABLET PO SCH ×3 (09:30→21:05)
[2020-05-02 12:30] VITALS: BP 194/75
[2020-05-02] MEDS ORDERED: IOHEXOL-350 100 ML BOTTLE ONE (14:47)
[2020-05-02] MEDS: AZITHROMYCIN 500 MG in DEXT 5% WATER 250 ML IV SCH (16:12)
[2020-05-02] MEDS: PIPERACILLIN/TAZOBACTAM 2.25 G in DEXTROSE 5% WATER 50 ML IV SCH ×3 (16:12→21:06)
[2020-05-02 16:30] VITALS: BP 156/65
[2020-05-02] MEDS: ENOXAPARIN 30MG/0.3ML SYR SUBCUT SCH (17:54)
[2020-05-02 20:00] VITALS: BP 200/64
[2020-05-03] VITALS: BP 161/61
[2020-05-03 04:00] VITALS: BP 193/97
[2020-05-03] MEDS: METOCLOPRAMIDE HCL 10MG/2ML VIAL IV SCH ×3 (05:42→21:33)
[2020-05-03] MEDS: SODIUM CHLORIDE 0.9% INJ 3ML FLUSH IVF SCH ×3 (05:42→21:34)
[2020-05-03] MEDS: PIPERACILLIN/TAZOBACTAM 2.25 G in DEXTROSE 5% WATER 50 ML IV SCH ×3 (05:43→21:34)
[2020-05-03] MEDS: BLOOD SUGAR DIAGNOSTIC STRIP TEST SCH ×4 (05:43→21:34)
[2020-05-03] MEDS: HYDRALAZINE HCL 50MG TABLET PO SCH ×2 (05:43→17:46)
[2020-05-03] MEDS: CLONIDINE 0.1MG TABLET PO SCH ×2 (05:43→17:44)
[2020-05-03] MEDS: HYDROCODONE/ACETAMINOPHEN 5/325MG TABLET PO PRN (06:04)
[2020-05-03] MEDS: INSULIN LISPRO 100 UNITS/ML SUBCUT SCH ×4 (06:52→21:57)
[2020-05-03 07:51] VITALS: BP 170/55
[2020-05-03 10:59] LABS: BASOPHILS % 1.3 % (0.0-2.0); EOSINOPHILS % 1.5 % (0.0-5.0); HEMATOCRIT. 25.4 % (36.0-48.0); HEMOGLOBIN. 8.8 g/dL (12.0-16.0); LYMPHOCYTES % 9.6 % (20.0-50.0); MEAN CORPUSCULAR HEMOGLOBIN 27.3 pg (28.0-32.0); MEAN CORPUSCULAR VOLUME 78.6 fL (81.0-99.0); MEAN PLATELET VOLUME 8.9 fl (7.4-10.4); MONOCYTES % 8.1 % (2.0-8.0); NEUTROPHILS % 79.5 % (40.0-76.0); PLATELET 322 x1000/uL (130-400); RED BLOOD CELL COUNT 3.23 mill/uL (4.2-5.4); RED CELL DISTRIBUTION WIDTH 19.5 % (11.6-14.6)
[2020-05-03 12:00] VITALS: BP 101/71
[2020-05-03 16:00] VITALS: BP 111/91
[2020-05-03] MEDS: AZITHROMYCIN 500 MG in DEXT 5% WATER 250 ML IV SCH (17:44)
[2020-05-03 20:00] VITALS: BP 91/69
[2020-05-03] MEDS: ENOXAPARIN 30MG/0.3ML SYR SUBCUT SCH (21:33)
[2020-05-03] MEDS: MORPHINE SULFATE 2 MG/ML CPJ (NOT FOR IM USE) IV PRN (21:35)
[2020-05-03] MEDS ORDERED: AZIT500T3 MT (22:36)
[2020-05-03] MEDS ORDERED: HYDR-4135 PO (22:36)
[2020-05-03] MEDS ORDERED: METO5TAB86 MT (22:36)
[2020-05-03] MEDS ORDERED: CLON0.1T14 PO (22:36)
[2020-05-04] VITALS: BP 190/70
[2020-05-04] MEDS: METOCLOPRAMIDE HCL 10MG/2ML VIAL IV SCH ×3 (01:02→11:50)
[2020-05-04] MEDS: CLONIDINE 0.1MG TABLET PO SCH ×3 (01:03→11:54)
[2020-05-04] MEDS: HYDRALAZINE HCL 50MG TABLET PO SCH ×2 (01:03→05:55)
[2020-05-04 04:00] VITALS: BP 196/67
[2020-05-04] MEDS: SODIUM CHLORIDE 0.9% INJ 3ML FLUSH IVF SCH ×2 (05:54→15:23)
[2020-05-04] MEDS: PIPERACILLIN/TAZOBACTAM 2.25 G in DEXTROSE 5% WATER 50 ML IV SCH ×2 (05:54→15:22)
[2020-05-04] MEDS: BLOOD SUGAR DIAGNOSTIC STRIP TEST SCH ×2 (06:49→12:06)
[2020-05-04] MEDS: INSULIN LISPRO 100 UNITS/ML SUBCUT SCH ×2 (06:49→12:45)
[2020-05-04 08:00] VITALS: BP 183/49
[2020-05-04] MEDS ORDERED: REGADENOSON 0.4 MG/5 ML IV NR (08:00)
[2020-05-04] MEDS ORDERED: REGADENOSON 0.4 MG/5 ML IV ONE (10:38)
[2020-05-04] MEDS: ACETAMINOPHEN 325MG TABLET PO PRN (11:51)
[2020-05-04 12:00] VITALS: BP 226/70
[2020-05-04] MEDS ORDERED: HYDRALAZINE HCL 100MG TABLET PO SCH (14:00)
[2020-05-04] MEDS: AZITHROMYCIN 500 MG in DEXT 5% WATER 250 ML IV SCH (15:22)
[2020-05-04 16:15] VITALS: BP 189/60
[2020-05-04] MEDS: CLONIDINE 0.1MG TABLET PO PRN (16:18)
[2020-05-04 16:33] VITALS: BP 186/60
== END 2020-05-04 17:35 | disposition home or self-care (01) | DRG 198 ==
LOC: ER 12:17 → 7WST 14:57 → EDBEDREQTM 14:59 → EDBEDREQ 14:59 → ENRESERV 19:52 → 8WST 05-02 19:03
PROVIDERS: ADMIT Family Medicine; ATTEND Family Medicine
PROC: 5A1D70Z Performance of Urinary Filtration, Intermittent, Less than 6 Hours Per Day (ICD-10-PCS; principal; 2020-04-30)
PROC: 5A1D70Z Performance of Urinary Filtration, Intermittent, Less than 6 Hours Per Day (ICD-10-PCS; 2020-05-02)
PROC: 5A1D70Z Performance of Urinary Filtration, Intermittent, Less than 6 Hours Per Day (ICD-10-PCS; 2020-05-04)
PROC: 02HV33Z Insertion of Infusion Device into Superior Vena Cava, Percutaneous Approach (ICD-10-PCS; 2020-05-04)
PROC: B5181ZA Fluoroscopy of Superior Vena Cava using Low Osmolar Contrast, Guidance (ICD-10-PCS; 2020-05-04)
PROC: B548ZZA Ultrasonography of Superior Vena Cava, Guidance (ICD-10-PCS; 2020-05-04)
DX: I24.9 Acute ischemic heart disease, unspecified (principal); J96.01 Acute respiratory failure with hypoxia; I13.2 Hypertensive heart and chronic kidney disease with heart failure and with stage 5 chronic kidney disease, or end stage renal disease; J18.9 Pneumonia, unspecified organism; E46 Unspecified protein-calorie malnutrition; E11.22 Type 2 diabetes mellitus with diabetic chronic kidney disease; K31.84 Gastroparesis; E11.43 Type 2 diabetes mellitus with diabetic autonomic (poly)neuropathy; I27.20 Pulmonary hypertension, unspecified; E87.1 Hypo-osmolality and hyponatremia; N18.6 End stage renal disease; E11.65 Type 2 diabetes mellitus with hyperglycemia; I50.9 Heart failure, unspecified; D63.8 Anemia in other chronic diseases classified elsewhere; I16.1 Hypertensive emergency; Y95 Nosocomial condition; Z20.828 Contact with and (suspected) exposure to other viral communicable diseases; F41.9 Anxiety disorder, unspecified; Z79.899 Other long term (current) drug therapy; Z99.2 Dependence on renal dialysis
CPT/HCPCS: 36415; 36573; 36600; 71045; 71275; 74018; 76937; 78452; 80048; 80053; 80061; 82375; 82550; 82553; 82805; 82962; 83036; 83880; 84439; 84443; 84484; 85025; 85379; 93005; 93017; 93306; 99285; A9500; C1725; J0456; J1200; J1650; J1815; J1956; J2270; J2405; J2543; J2765; J2785; J7030; J7060; Q9967; U0003-CS

== ENCOUNTER 2020-05-21 22:30 | Inpatient (IN) | payer MEDICAID ==
[~2020-05-21] VITALS: Ht 165.1 cm; Wt 51.0 kg
[~2020-05-21 22:30] MED LIST changes: +AZIT500T3 MT; +CLON0.1T14 PO; -CLON0.3T4 MT; +HYDR-4135 PO; -HYDR100T31 GT; -ISOS20TA57 PO; -LOPHC2 MT; +METO5TAB86 MT; -MINO10TA16 MT; -NIFE90TA60 MT; -ZOLP5TAB2 PO
[2020-05-21] MEDS ORDERED: ONDANSETRON HCL 4MG/2ML INJ IV STA (22:38)
[2020-05-21] MEDS ORDERED: ALBUTEROL (0.083%) 2.5MG/3ML NEB HHN STA (22:43)
[2020-05-21] MEDS ORDERED: IPRATROPIUM BROMIDE (0.02%) 0.5MG/2.5ML NEB HHN STA (22:43)
[2020-05-21] MEDS ORDERED: LORAZEPAM 2MG/ML CPJ IV ONE (23:30)
[2020-05-21] MEDS ORDERED: HYDRALAZINE 20MG/ML VIAL IV ONE (23:30)
[2020-05-21 23:31] LABS: BG BASE EXCESS -1.4 mmol/L (-2.0-2.0); BG BILEVEL POS AIRWAY PRESSURE 15/5; BG CARBOXYHEMOGLOBIN 0.8 % (0.5-1.5); BG DEOXYHEMOGLOBIN 5.3 % (0.0-5.0); BG FRACTION INSPIRED OXYGEN 100; BG HCO3 ACT 24.6 mmol/L (22.0-26.0); BG METHEMOGLOBIN 0.2 % (0.0-1.5); BG OXYGEN SATURATION 94.6 % (92.0-98.5); BG OXYHEMOGLOBIN 93.7 % (94.0-97.0); BG PCO2 47.2 mmHg (35.0-45.0); BG PH 7.335 (7.350-7.450); BG PO2 85.7 mmHg (75.0-100.0); BG SAMPLE SITE RIGHT RADIAL; BG VENT MODE MASK - BIPAP
[2020-05-21] MEDS ORDERED: LORAZEPAM 2MG/ML CPJ ONE (23:37)
[2020-05-21] MEDS ORDERED: FUROSEMIDE 40MG/4ML VIAL ONE (23:38)
[2020-05-21] MEDS ORDERED: NITROGLYCERIN 0.4MG TABLET SL SL ONE ×2 (23:39→23:45)
[2020-05-21] MEDS ORDERED: NITROGLYCERIN 50MG PREMIX 250 ML IV ONE (23:45)
[2020-05-21] MEDS ORDERED: FUROSEMIDE 40MG/4ML VIAL IVP ONE (23:45)
[2020-05-22 00:05] LABS: BASOPHILS % 0.6 % (0.0-2.0); EOSINOPHILS % 0.5 % (0.0-5.0); HEMATOCRIT. 32.4 % (36.0-48.0); HEMOGLOBIN. 10.2 g/dL (12.0-16.0); LYMPHOCYTES % 18.2 % (20.0-50.0); MEAN CORPUSCULAR HEMOGLOBIN 27.5 pg (28.0-32.0); MEAN CORPUSCULAR VOLUME 87.2 fL (81.0-99.0); MONOCYTES % 3.4 % (2.0-8.0); NEUTROPHILS % 77.3 % (40.0-76.0); PLATELET 568 x1000/uL (130-400); RED BLOOD CELL COUNT 3.72 mill/uL (4.2-5.4); RED CELL DISTRIBUTION WIDTH 23.4 % (11.6-14.6)
[2020-05-22 00:12] LABS: CHLORIDE 94 mEq/L (98-107)
[2020-05-22 00:22] LABS: INR 0.9; PROTHROMBIN TIME 9.8 sec (9.6-11.0)
[2020-05-22] MEDS ORDERED: FUROSEMIDE 40MG/4ML VIAL IVP ONE (00:30)
[2020-05-22 00:35] LABS: PLATELET ESTIMATE INCREASED
[2020-05-22] MEDS ORDERED: LEVOFLOXACIN 500MG PREMIX 100 ML IV NR (00:45)
[2020-05-22] MEDS ORDERED: INSULIN LISPRO 100 UNITS/ML SUBCUT NR (01:00)
[2020-05-22] MEDS ORDERED: ONDANSETRON HCL 4MG/2ML INJ ONE (04:09)
[2020-05-22] MEDS ORDERED: POTASSIUM CHLORIDE INJ 40 MEQ in DEXT 5% WATER 250 ML IV NR (04:15)
[2020-05-22] MEDS ORDERED: PROPOFOL 10MG/ML 100ML 100 ML IV SCH (04:15)
[2020-05-22] MEDS ORDERED: ONDANSETRON HCL 4MG/2ML INJ IV ONE (04:15)
[2020-05-22] MEDS ORDERED: SUCCINYLCHOLINE CHLORIDE 200MG/10ML IV ONE (04:19)
[2020-05-22] MEDS ORDERED: ETOMIDATE 2MG/ML 10ML VIAL IV ONE (04:19)
[2020-05-22] MEDS ORDERED: FENTANYL CITRATE/PF 1,000 MCG in SODIUM CHLORIDE 0.9% 80 ML IV PRN ×3 (05:00→20:45)
[2020-05-22] MEDS ORDERED: LORAZEPAM 2MG/ML CPJ IV ONE (05:00)
[2020-05-22] MEDS ORDERED: MIDAZOLAM HCL 50 MG in DEXTROSE 5% WATER 40 ML IV ONE (05:00)
[2020-05-22] MEDS ORDERED: MIDAZOLAM HCL 100 MG in DEXT 5% WATER 80 ML IV PRN (05:15)
[2020-05-22 05:47] LABS: BG BASE EXCESS -0.9 mmol/L (-2.0-2.0); BG CARBOXYHEMOGLOBIN 0.5 % (0.5-1.5); BG DEOXYHEMOGLOBIN 1.5 % (0.0-5.0); BG FRACTION INSPIRED OXYGEN 100; BG HCO3 ACT 25.1 mmol/L (22.0-26.0); BG METHEMOGLOBIN 0.1 % (0.0-1.5); BG OXYGEN SATURATION 98.5 % (92.0-98.5); BG OXYHEMOGLOBIN 97.9 % (94.0-97.0); BG PCO2 48.1 mmHg (35.0-45.0); BG PH 7.335 (7.350-7.450); BG PO2 145.8 mmHg (75.0-100.0); BG SAMPLE SITE RIGHT BRACHIAL; BG TIDAL VOLUME(mL) 500 mL; BG TOTAL HEMOGLOBIN 8.9 g/dL (12.0-18.0); BG VENT MODE VENT - A/C; BG VENT RATE 16 set
[2020-05-22 06:27] LABS: HEMATOCRIT. 23.5 % (36.0-48.0); HEMOGLOBIN. 7.5 g/dL (12.0-16.0); MEAN CORPUSCULAR HEMOGLOBIN 27.4 pg (28.0-32.0); MEAN CORPUSCULAR VOLUME 85.3 fL (81.0-99.0); MEAN PLATELET VOLUME 8.2 fl (7.4-10.4); PLATELET 351 x1000/uL (130-400); RED BLOOD CELL COUNT 2.75 mill/uL (4.2-5.4); RED CELL DISTRIBUTION WIDTH 22.7 % (11.6-14.6)
[2020-05-22 06:34] LABS: CHLORIDE 99 mEq/L (98-107)
[2020-05-22] MEDS: INSULIN LISPRO (LOW DOSE) 100 UNITS/ML SUBCUT SCH ×4 (07:27→21:00)
[2020-05-22 08:14] LABS: CLARITY URINE TURBID (CLEAR); COLOR URINE DARK YELLOW (YELLOW); KETONES URINE NEGATIVE (NEGATIVE); LEUKOCYTE ESTERASE URINE TRACE (NEGATIVE); NITRITE URINE NEGATIVE (NEGATIVE); OCCULT BLOOD URINE 1+ (NEGATIVE); PROTEIN URINE 4+ (NEGATIVE); SPECIFIC GRAVITY URINE 1.027 (1.005-1.030)
[2020-05-22] MEDS ORDERED: PIPERACILLIN/TAZ 3.375G PREMIX 50 ML IV SCH ×2 (08:30→09:45)
[2020-05-22 09:23] LABS: NUCLEATED RED BLOOD CELLS 1 /100 WBC; PLATELET ESTIMATE NORMAL
[2020-05-22] MEDS ORDERED: ENOXAPARIN 40MG/0.4ML SYR SUBCUT SCH (09:45)
[2020-05-22] MEDS ORDERED: ACETAMINOPHEN 650MG/20.3ML UDC GT PRN ×2 (09:45)
[2020-05-22] MEDS ORDERED: GUAIFENESIN 200MG/10ML SUGAR FREE UDC PO PRN (09:45)
[2020-05-22] MEDS ORDERED: DOCUSATE SODIUM 100MG CAPSULE PO PRN (09:45)
[2020-05-22] MEDS ORDERED: ACETAMINOPHEN 325MG TABLET PO PRN ×2 (09:45)
[2020-05-22] MEDS ORDERED: DIPHENHYDRAMINE 50MG/ML VIAL IV PRN (09:45)
[2020-05-22] MEDS ORDERED: MAGNESIUM/ALUMINUM HYDROXIDE/SIMETHICONE 30ML UDC PO PRN (09:45)
[2020-05-22] MEDS ORDERED: CLONIDINE 0.1MG TABLET PO PRN (09:45)
[2020-05-22] MEDS ORDERED: ACETAMINOPHEN 650MG SUPP PR PRN ×2 (09:45)
[2020-05-22] MEDS ORDERED: NA PHOS,M-B/NA PHOS,DI-BA ENEMA 118ML PR PRN (09:45)
[2020-05-22] MEDS ORDERED: ONDANSETRON HCL 4MG/2ML INJ IV PRN (09:45)
[2020-05-22] MEDS ORDERED: VANCOMYCIN 1 G PREMIX 200 ML IV SCH (10:00)
[2020-05-22] MEDS: BLOOD SUGAR DIAGNOSTIC STRIP TEST SCH ×4 (10:50→21:00)
[2020-05-22] MEDS: ENOXAPARIN 30MG/0.3ML SYR SUBCUT SCH (11:00)
[2020-05-22] MEDS: DEXTROSE 50% WATER 50ML SYRINGE IV PRN ×2 (11:12→12:33)
[2020-05-22 15:02] LABS: CLARITY URINE CLOUDY (CLEAR); COLOR URINE YELLOW (YELLOW); KETONES URINE NEGATIVE (NEGATIVE); LEUKOCYTE ESTERASE URINE TRACE (NEGATIVE); NITRITE URINE NEGATIVE (NEGATIVE); OCCULT BLOOD URINE 2+ (NEGATIVE); PH URINE >=9.0 (4.5-8.0); PROTEIN URINE 4+ (NEGATIVE); SPECIFIC GRAVITY URINE 1.024 (1.005-1.030); UROBILINOGEN URINE 0.2 E.U./dL (0.2-1.0)
[2020-05-22 15:36] LABS: *AMPHETAMINES SCREEN URINE NEGATIVE (NEGATIVE); *BARBITURATES SCREEN URINE NEGATIVE (NEGATIVE); *BENZODIAZEPINES SCREEN URINE PRESUMTIVE POSITIVE (NEGATIVE); *COCAINE SCREEN URINE NEGATIVE (NEGATIVE); METHADONE URINE SCREEN NEGATIVE (NEGATIVE)
[2020-05-22 15:37] LABS: CANNABINOID URINE SCREEN PRESUMTIVE POSITIVE (NEGATIVE); OPIATES URINE SCREEN NEGATIVE (NEGATIVE); PHENCYCLIDINE URINE SCREEN NEGATIVE (NEGATIVE)
[2020-05-22] MEDS: PIPERACILLIN/TAZOBACTAM 2.25 G in DEXTROSE 5% WATER 50 ML IV SCH ×2 (19:19→22:00)
[2020-05-22 19:54] LABS: CREATINE KINASE MB FRACTION 4.2 ng/mL (0.5-3.6)
[2020-05-22 23:54] LABS: CREATINE KINASE MB FRACTION 2.2 ng/mL (0.5-3.6)
[2020-05-23 04:35] LABS: BASOPHILS % 0.4 % (0.0-2.0); EOSINOPHILS % 0.2 % (0.0-5.0); HEMATOCRIT. 23.9 % (36.0-48.0); HEMOGLOBIN. 7.9 g/dL (12.0-16.0); LYMPHOCYTES % 9.4 % (20.0-50.0); MEAN CORPUSCULAR HEMOGLOBIN 28.5 pg (28.0-32.0); MEAN CORPUSCULAR VOLUME 86.8 fL (81.0-99.0); MONOCYTES % 6.9 % (2.0-8.0); NEUTROPHILS % 83.1 % (40.0-76.0); RED BLOOD CELL COUNT 2.76 mill/uL (4.2-5.4); RED CELL DISTRIBUTION WIDTH 22.2 % (11.6-14.6)
[2020-05-23] MEDS: PIPERACILLIN/TAZOBACTAM 2.25 G in DEXTROSE 5% WATER 50 ML IV SCH ×3 (06:12→22:00)
[2020-05-23] MEDS: BLOOD SUGAR DIAGNOSTIC STRIP TEST SCH ×4 (06:28→20:37)
[2020-05-23] MEDS: INSULIN LISPRO (LOW DOSE) 100 UNITS/ML SUBCUT SCH ×3 (07:30→17:00)
[2020-05-23 08:03] LABS: BG BASE EXCESS 2.6 mmol/L (-2.0-2.0); BG DEOXYHEMOGLOBIN 0.3 % (0.0-5.0); BG FRACTION INSPIRED OXYGEN 70; BG METHEMOGLOBIN 0.3 % (0.0-1.5); BG OXYGEN SATURATION 99.7 % (92.0-98.5); BG OXYHEMOGLOBIN 98.4 % (94.0-97.0); BG PCO2 34.6 mmHg (35.0-45.0); BG PH 7.493 (7.350-7.450); BG SAMPLE SITE RIGHT BRACHIAL; BG TIDAL VOLUME(mL) 500 mL; BG TOTAL HEMOGLOBIN 7.5 g/dL (12.0-18.0); BG VENT MODE VENT - A/C; BG VENT RATE 16 set
[2020-05-23 08:47] LABS: MEAN PLATELET VOLUME 8.8 fl (7.4-10.4); PLATELET 216 x1000/uL (130-400)
[2020-05-23] MEDS: ENOXAPARIN 30MG/0.3ML SYR SUBCUT SCH (09:00)
[2020-05-23] MEDS ORDERED: CARVEDILOL 3.125 MG TABLET NG SCH (09:00)
[2020-05-23] MEDS: ASPIRIN 81MG TABLET NG SCH (12:16)
[2020-05-23] MEDS: BENAZEPRIL 10MG TABLET NG SCH (12:17)
[2020-05-23 12:35] LABS: LDL CHOLESTEROL 58 mg/dL (5-100)
[2020-05-23 12:36] LABS: HDL CHOLESTEROL 64 mg/dL (40-59)
[2020-05-23 12:37] LABS: T4 FREE 1.97 ng/dL (0.76-1.46)
[2020-05-23] MEDS ORDERED: MIDAZOLAM HCL 100 MG in DEXT 5% WATER 80 ML IV NR (16:00)
[2020-05-23] MEDS: CLONIDINE 0.1MG TABLET PO PRN (16:06)
[2020-05-23] MEDS ORDERED: IPRATROPIUM/ALBUTEROL 0.5-3(2.5)MG/3ML NEB HHN PRN (17:30)
[2020-05-23] MEDS: PANTOPRAZOLE SODIUM 40 MG/VIAL IV SCH (18:32)
[2020-05-23] MEDS ORDERED: DILTIAZEM HCL 125 MG in DEXTROSE 5% WATER 125 ML IV PRN (19:30)
[2020-05-23 23:07] LABS: CREATINE KINASE 42 IU/L (26-192)
[2020-05-23 23:08] LABS: CREATINE KINASE MB FRACTION < 1.0 ng/mL (0.5-3.6)
[2020-05-24] VITALS (54 sets, daily range): BP systolic 108–215; BP diastolic 55–96
[2020-05-24] MEDS: IPRATROPIUM/ALBUTEROL 0.5-3(2.5)MG/3ML NEB HHN SCH ×4 (00:28→14:00)
[2020-05-24 05:03] LABS: CREATINE KINASE 46 IU/L (26-192)
[2020-05-24 05:04] LABS: CREATINE KINASE MB FRACTION < 1.0 ng/mL (0.5-3.6)
[2020-05-24 07:56] LABS: EOSINOPHILS % 3.3 % (0.0-5.0); HEMATOCRIT. 21.6 % (36.0-48.0); HEMOGLOBIN. 7.1 g/dL (12.0-16.0); LYMPHOCYTES % 14.3 % (20.0-50.0); MEAN CORPUSCULAR VOLUME 85.8 fL (81.0-99.0); MEAN PLATELET VOLUME 9.1 fl (7.4-10.4); MONOCYTES % 7.3 % (2.0-8.0); NEUTROPHILS % 74.1 % (40.0-76.0); PLATELET 292 x1000/uL (130-400); RED BLOOD CELL COUNT 2.52 mill/uL (4.2-5.4); RED CELL DISTRIBUTION WIDTH 22.2 % (11.6-14.6)
[2020-05-24 08:43] LABS: BG BASE EXCESS -2.3 mmol/L (-2.0-2.0); BG CARBOXYHEMOGLOBIN 0.9 % (0.5-1.5); BG DEOXYHEMOGLOBIN 1.2 % (0.0-5.0); BG FRACTION INSPIRED OXYGEN 40; BG HCO3 ACT 23.2 mmol/L (22.0-26.0); BG METHEMOGLOBIN 0.5 % (0.0-1.5); BG OXYGEN SATURATION 98.8 % (92.0-98.5); BG OXYHEMOGLOBIN 97.4 % (94.0-97.0); BG PCO2 43.3 mmHg (35.0-45.0); BG PH 7.347 (7.350-7.450); BG PO2 144.5 mmHg (75.0-100.0); BG SAMPLE SITE RIGHT BRACHIAL; BG TIDAL VOLUME(mL) 500 mL; BG TOTAL HEMOGLOBIN 8.5 g/dL (12.0-18.0); BG VENT MODE VENT - A/C; BG VENT RATE 12 set
[2020-05-24] MEDS: BENAZEPRIL 10MG TABLET NG SCH (09:00)
[2020-05-24] MEDS ORDERED: CARVEDILOL 12.5MG TABLET NG SCH (09:00)
[2020-05-24] MEDS: PANTOPRAZOLE SODIUM 40 MG/VIAL IV SCH (10:29)
[2020-05-24] MEDS: ASPIRIN 81MG TABLET NG SCH (10:29)
[2020-05-24] MEDS: ENOXAPARIN 30MG/0.3ML SYR SUBCUT SCH (10:31)
[2020-05-24] MEDS: PIPERACILLIN/TAZOBACTAM 2.25 G in DEXTROSE 5% WATER 50 ML IV SCH ×3 (10:40→21:18)
[2020-05-24] MEDS: BLOOD SUGAR DIAGNOSTIC STRIP TEST SCH ×3 (11:10→21:12)
[2020-05-24] MEDS ORDERED: VANCOMYCIN 1 G PREMIX 200 ML IV NR (12:00)
[2020-05-24] MEDS ORDERED: METOPROLOL TARTRATE 25MG TABLET PO SCH (14:10)
[2020-05-24] MEDS: NITROGLYCERIN 50MG PREMIX 250 ML IV PRN (14:27)
[2020-05-24] MEDS: INSULIN LISPRO (LOW DOSE) 100 UNITS/ML SUBCUT SCH ×3 (14:34→21:19)
[2020-05-24] MEDS: FENTANYL 1,000 MCG in SODIUM CHLORIDE 0.9% 100 ML IV PRN (17:12)
[2020-05-24] MEDS: MIDAZOLAM HCL 100 MG in DEXT 5% WATER 80 ML IV PRN (17:13)
[2020-05-24] MEDS: METOPROLOL TARTRATE 25MG TABLET PO SCH (21:18)
[2020-05-25] VITALS (87 sets, daily range): BP systolic 130–235; BP diastolic 64–106
[2020-05-25] MEDS: IPRATROPIUM/ALBUTEROL 0.5-3(2.5)MG/3ML NEB HHN SCH ×3 (00:30→20:36)
[2020-05-25] MEDS: NITROGLYCERIN 50MG PREMIX 250 ML IV PRN ×4 (02:12→20:31)
[2020-05-25] MEDS: FENTANYL 1,000 MCG in SODIUM CHLORIDE 0.9% 100 ML IV PRN (03:19)
[2020-05-25] MEDS: MIDAZOLAM HCL 100 MG in DEXT 5% WATER 80 ML IV PRN (03:19)
[2020-05-25] MEDS: BLOOD SUGAR DIAGNOSTIC STRIP TEST SCH ×4 (05:36→20:23)
[2020-05-25] MEDS: PIPERACILLIN/TAZOBACTAM 2.25 G in DEXTROSE 5% WATER 50 ML IV SCH ×3 (05:42→21:20)
[2020-05-25] MEDS: INSULIN LISPRO (LOW DOSE) 100 UNITS/ML SUBCUT SCH ×4 (05:43→20:23)
[2020-05-25 05:51] LABS: HEMATOCRIT. 25.9 % (36.0-48.0); HEMOGLOBIN. 8.7 g/dL (12.0-16.0); MEAN CORPUSCULAR HEMOGLOBIN 28.9 pg (28.0-32.0); MEAN CORPUSCULAR VOLUME 86.4 fL (81.0-99.0); PLATELET 328 x1000/uL (130-400); RED CELL DISTRIBUTION WIDTH 19.8 % (11.6-14.6)
[2020-05-25 06:58] LABS: PLATELET ESTIMATE NORMAL
[2020-05-25] MEDS: PANTOPRAZOLE SODIUM 40 MG/VIAL IV SCH (08:26)
[2020-05-25] MEDS: ENOXAPARIN 30MG/0.3ML SYR SUBCUT SCH (09:00)
[2020-05-25] MEDS: BENAZEPRIL 10MG TABLET NG SCH (10:47)
[2020-05-25] MEDS: METOPROLOL TARTRATE 25MG TABLET PO SCH (10:47)
[2020-05-25] MEDS: INSULIN GLARGINE UD 100 UNITS/ML SYR SUBCUT SCH (10:49)
[2020-05-25] MEDS ORDERED: METOPROLOL TARTRATE 25MG TABLET PO NR (11:00)
[2020-05-25 11:32] LABS: BG BASE EXCESS -3.9 mmol/L (-2.0-2.0); BG CARBOXYHEMOGLOBIN 0.2 % (0.5-1.5); BG FRACTION INSPIRED OXYGEN 40; BG HCO3 ACT 20.7 mmol/L (22.0-26.0); BG METHEMOGLOBIN 0.7 % (0.0-1.5); BG OXYHEMOGLOBIN 98.1 % (94.0-97.0); BG PCO2 35.4 mmHg (35.0-45.0); BG PH 7.385 (7.350-7.450); BG PO2 185.5 mmHg (75.0-100.0); BG PRESSURE SUPPORT 8; BG SAMPLE SITE RIGHT RADIAL; BG TOTAL HEMOGLOBIN 8.8 g/dL (12.0-18.0); BG VENT MODE VENT - CPAP
[2020-05-25] MEDS: CLONIDINE 0.1MG TABLET NG SCH ×2 (14:05→21:20)
[2020-05-25] MEDS: HYDRALAZINE HCL 50MG TABLET PO SCH ×2 (17:48→21:19)
[2020-05-25] MEDS: CLONIDINE 0.1MG TABLET PO PRN (20:22)
[2020-05-25] MEDS: METOPROLOL TARTRATE 50MG TABLET PO SCH (20:23)
[2020-05-25] MEDS: AMLODIPINE 10MG TABLET PO SCH (21:19)
[2020-05-25] MEDS: HYDROCODONE/ACETAMINOPHEN 5/325MG TABLET PO PRN (21:20)
[2020-05-26] VITALS (91 sets, daily range): BP systolic 133–203; BP diastolic 59–104
[2020-05-26] MEDS: NITROGLYCERIN 50MG PREMIX 250 ML IV PRN ×6 (00:35→19:43)
[2020-05-26] MEDS: HYDROCODONE/ACETAMINOPHEN 5/325MG TABLET PO PRN ×2 (01:49→13:54)
[2020-05-26] MEDS ORDERED: HYDROCODONE/ACETAMINOPHEN 5/325MG TABLET PO NR (02:02)
[2020-05-26] MEDS: PIPERACILLIN/TAZOBACTAM 2.25 G in DEXTROSE 5% WATER 50 ML IV SCH ×3 (05:18→21:13)
[2020-05-26] MEDS: HYDRALAZINE HCL 50MG TABLET PO SCH ×3 (05:18→21:49)
[2020-05-26] MEDS: CLONIDINE 0.1MG TABLET NG SCH (05:19)
[2020-05-26 07:02] LABS: HEMATOCRIT. 24.1 % (36.0-48.0); MEAN CORPUSCULAR HEMOGLOBIN 28.3 pg (28.0-32.0); RED BLOOD CELL COUNT 2.84 mill/uL (4.2-5.4); RED CELL DISTRIBUTION WIDTH 19.4 % (11.6-14.6)
[2020-05-26] MEDS: BLOOD SUGAR DIAGNOSTIC STRIP TEST SCH ×4 (07:50→21:04)
[2020-05-26 08:04] LABS: PLATELET ESTIMATE NORMAL
[2020-05-26 08:05] LABS: MEAN PLATELET VOLUME 9.1 fl (7.4-10.4); PLATELET 313 x1000/uL (130-400)
[2020-05-26] MEDS: INSULIN LISPRO (LOW DOSE) 100 UNITS/ML SUBCUT SCH ×4 (08:20→21:00)
[2020-05-26] MEDS: IPRATROPIUM/ALBUTEROL 0.5-3(2.5)MG/3ML NEB HHN SCH ×3 (08:41→20:19)
[2020-05-26] MEDS: AMLODIPINE 10MG TABLET PO SCH (08:49)
[2020-05-26] MEDS: BENAZEPRIL 10MG TABLET NG SCH (08:49)
[2020-05-26] MEDS: PANTOPRAZOLE SODIUM 40 MG/VIAL IV SCH (08:50)
[2020-05-26] MEDS: METOPROLOL TARTRATE 50MG TABLET PO SCH ×2 (08:50→21:13)
[2020-05-26] MEDS: ENOXAPARIN 30MG/0.3ML SYR SUBCUT SCH (08:52)
[2020-05-26] MEDS: INSULIN GLARGINE UD 100 UNITS/ML SYR SUBCUT SCH (12:22)
[2020-05-26] MEDS: CLONIDINE 0.2MG TABLET PO SCH ×2 (14:20→22:54)
[2020-05-26] MEDS: HYDRALAZINE 20MG/ML VIAL IV PRN (15:58)
[2020-05-26] MEDS: DEXTROSE 50% WATER 50ML SYRINGE IV PRN (17:31)
[2020-05-26] MEDS: CLONIDINE 0.1MG TABLET PO PRN (19:43)
[2020-05-27] VITALS (75 sets, daily range): BP systolic 116–198; BP diastolic 55–117
[2020-05-27] MEDS: IPRATROPIUM/ALBUTEROL 0.5-3(2.5)MG/3ML NEB HHN SCH ×4 (01:23→21:06)
[2020-05-27] MEDS: HYDROCODONE/ACETAMINOPHEN 5/325MG TABLET PO PRN ×4 (04:06→19:23)
[2020-05-27] MEDS: HYDRALAZINE HCL 50MG TABLET PO SCH ×3 (05:27→22:04)
[2020-05-27] MEDS: PIPERACILLIN/TAZOBACTAM 2.25 G in DEXTROSE 5% WATER 50 ML IV SCH ×3 (05:27→22:04)
[2020-05-27 05:59] LABS: HEMATOCRIT 24.2 % (36.0-48.0); MEAN CORPUSCULAR HEMOGLOBIN 28.3 pg (28.0-32.0); MEAN CORPUSCULAR VOLUME 85.6 fL (81.0-99.0); PLATELET 311 x1000/uL (130-400); RED BLOOD CELL COUNT 2.83 mill/uL (4.2-5.4); RED CELL DISTRIBUTION WIDTH 18.9 % (11.6-14.6)
[2020-05-27] MEDS: CLONIDINE 0.2MG TABLET PO SCH ×3 (06:12→22:03)
[2020-05-27] MEDS: PANTOPRAZOLE SODIUM 40 MG/VIAL IV SCH (08:10)
[2020-05-27] MEDS: ENOXAPARIN 30MG/0.3ML SYR SUBCUT SCH (08:10)
[2020-05-27] MEDS: METOPROLOL TARTRATE 50MG TABLET PO SCH ×2 (08:11→22:03)
[2020-05-27] MEDS: BENAZEPRIL 10MG TABLET NG SCH (08:11)
[2020-05-27] MEDS: AMLODIPINE 10MG TABLET PO SCH (08:11)
[2020-05-27] MEDS: INSULIN LISPRO (LOW DOSE) 100 UNITS/ML SUBCUT SCH ×4 (08:18→21:00)
[2020-05-27] MEDS: BLOOD SUGAR DIAGNOSTIC STRIP TEST SCH ×4 (08:18→21:04)
[2020-05-27] MEDS: DEXTROSE 50% WATER 50ML SYRINGE IV PRN (08:18)
[2020-05-27] MEDS: INSULIN GLARGINE UD 100 UNITS/ML SYR SUBCUT SCH (10:00)
[2020-05-27] MEDS: METRONIDAZOLE 250MG TABLET NG SCH ×3 (11:12→22:39)
[2020-05-27] MEDS: HYDRALAZINE 20MG/ML VIAL IV PRN (12:10)
[2020-05-27] MEDS: CLONIDINE 0.1MG TABLET PO PRN (19:22)
[2020-05-27] MEDS ORDERED: EPOETIN ALFA 10000UNITS/ML VIAL SUBCUT SCH (21:00)
[2020-05-27] MEDS: MORPHINE SULFATE 2 MG/ML CPJ (NOT FOR IM USE) IV PRN (22:04)
[2020-05-28] VITALS (7 sets, daily range): BP systolic 150–206; BP diastolic 60–86
[2020-05-28] MEDS: IPRATROPIUM/ALBUTEROL 0.5-3(2.5)MG/3ML NEB HHN SCH ×3 (00:46→13:32)
[2020-05-28] MEDS: MORPHINE SULFATE 2 MG/ML CPJ (NOT FOR IM USE) IV PRN ×3 (02:42→12:08)
[2020-05-28] MEDS: METRONIDAZOLE 250MG TABLET NG SCH ×3 (04:25→17:05)
[2020-05-28] MEDS: HYDRALAZINE HCL 50MG TABLET PO SCH ×2 (06:00→13:29)
[2020-05-28] MEDS: CLONIDINE 0.2MG TABLET PO SCH ×2 (06:00→13:28)
[2020-05-28] MEDS: BLOOD SUGAR DIAGNOSTIC STRIP TEST SCH ×2 (06:27→12:20)
[2020-05-28] MEDS: INSULIN LISPRO (LOW DOSE) 100 UNITS/ML SUBCUT SCH ×2 (06:32→13:36)
[2020-05-28 06:41] LABS: HEMATOCRIT. 24.9 % (36.0-48.0); HEMOGLOBIN. 8.1 g/dL (12.0-16.0); MEAN CORPUSCULAR HEMOGLOBIN 27.4 pg (28.0-32.0); MEAN CORPUSCULAR VOLUME 83.9 fL (81.0-99.0); RED BLOOD CELL COUNT 2.97 mill/uL (4.2-5.4); RED CELL DISTRIBUTION WIDTH 18.7 % (11.6-14.6)
[2020-05-28 07:15] LABS: PLATELET ESTIMATE NORMAL
[2020-05-28 07:19] LABS: PLATELET 299 x1000/uL (130-400)
[2020-05-28] MEDS: HYDRALAZINE 20MG/ML VIAL IV PRN (08:12)
[2020-05-28] MEDS: METOPROLOL TARTRATE 50MG TABLET PO SCH (10:14)
[2020-05-28] MEDS: AMLODIPINE 10MG TABLET PO SCH (10:15)
[2020-05-28] MEDS: ENOXAPARIN 30MG/0.3ML SYR SUBCUT SCH (10:15)
[2020-05-28] MEDS: INSULIN GLARGINE UD 100 UNITS/ML SYR SUBCUT SCH (10:26)
[2020-05-28] MEDS ORDERED: INSLIS SUBCUT (11:16)
[2020-05-28] MEDS ORDERED: METO-539 PO (11:16)
[2020-05-28] MEDS ORDERED: LANTUSUD SUBCUT (11:16)
[2020-05-28] MEDS ORDERED: CLON0.2T12 PO (11:16)
[2020-05-28] MEDS ORDERED: HYDR-4135 PO (11:16)
[2020-05-28] MEDS ORDERED: BENA10TA74 NG (11:17)
[2020-05-28] MEDS ORDERED: AMLO10TA80 PO (11:17)
[2020-05-28] MEDS ORDERED: BENAZEPRIL 10MG TABLET NG SCH (13:30)
[2020-08-03] MEDS ORDERED: METO5TAB86 MT (12:22)
[2020-08-03] MEDS ORDERED: MOM PO (12:22)
[2020-08-03] MEDS ORDERED: TOPUD PO (12:22)
[2020-08-03] MEDS ORDERED: DOCU-150 PO (12:22)
[2020-08-03] MEDS ORDERED: SENN-170 MT (12:22)
[2020-08-04] MEDS ORDERED: TRAM50TA3 PO (12:46)
[2020-08-04] MEDS ORDERED: NIFE-32 MT (12:46)
== END 2020-05-28 17:40 | disposition home or self-care (01) | DRG 720 ==
LOC: ER 22:30 → EDBEDREQTM 05-22 00:31 → EDBEDREQDT 05-22 00:31 → EDBEDREQ 05-22 00:31 → EDBEDREQSVC 05-22 00:31 → MICUSO 05-22 00:38 → EDBEDREQTM 05-22 00:41 → EDBEDREQSVC 05-22 00:41 → ENRESERV 05-22 14:08 → CANRESERV 05-22 14:08 → MICUNO 05-24 07:29 → CVICU 05-25 19:29 → 6WST 05-28 00:45
PROVIDERS: ADMIT Family Medicine; ATTEND Family Medicine
PROC: 5A09357 Assistance with Respiratory Ventilation, Less than 24 Consecutive Hours, Continuous Positive Airway Pressure (ICD-10-PCS; 2020-05-21)
PROC: 5A1945Z Respiratory Ventilation, 24-96 Consecutive Hours (ICD-10-PCS; principal; 2020-05-22)
PROC: 0BH18EZ Insertion of Endotracheal Airway into Trachea, Via Natural or Artificial Opening Endoscopic (ICD-10-PCS; 2020-05-22)
PROC: 5A1D70Z Performance of Urinary Filtration, Intermittent, Less than 6 Hours Per Day (ICD-10-PCS; 2020-05-23)
PROC: 30233N1 Transfusion of Nonautologous Red Blood Cells into Peripheral Vein, Percutaneous Approach (ICD-10-PCS; 2020-05-24)
PROC: 5A1D70Z Performance of Urinary Filtration, Intermittent, Less than 6 Hours Per Day (ICD-10-PCS; 2020-05-24)
PROC: 5A1D70Z Performance of Urinary Filtration, Intermittent, Less than 6 Hours Per Day (ICD-10-PCS; 2020-05-26)
PROC: 5A1D70Z Performance of Urinary Filtration, Intermittent, Less than 6 Hours Per Day (ICD-10-PCS; 2020-05-27)
DX: A41.9 Sepsis, unspecified organism (principal); J96.00 Acute respiratory failure, unspecified whether with hypoxia or hypercapnia; E11.22 Type 2 diabetes mellitus with diabetic chronic kidney disease; N18.6 End stage renal disease; E87.6 Hypokalemia; N39.0 Urinary tract infection, site not specified; J18.9 Pneumonia, unspecified organism; D63.8 Anemia in other chronic diseases classified elsewhere; E11.43 Type 2 diabetes mellitus with diabetic autonomic (poly)neuropathy; E44.0 Moderate protein-calorie malnutrition; E78.5 Hyperlipidemia, unspecified; E87.1 Hypo-osmolality and hyponatremia; E87.2 Acidosis; F12.90 Cannabis use, unspecified, uncomplicated; I13.2 Hypertensive heart and chronic kidney disease with heart failure and with stage 5 chronic kidney disease, or end stage renal disease; I21.4 Non-ST elevation (NSTEMI) myocardial infarction; I27.29 Other secondary pulmonary hypertension; I47.1 Supraventricular tachycardia; I50.9 Heart failure, unspecified; K31.84 Gastroparesis; Z85.528 Personal history of other malignant neoplasm of kidney; Z99.2 Dependence on renal dialysis; Z68.1 Body mass index [BMI] 19.9 or less, adult; Z79.899 Other long term (current) drug therapy; Z03.818 Encounter for observation for suspected exposure to other biological agents ruled out
CPT/HCPCS: 36415; 36600; 71045; 80048; 80051; 80053; 80061; 80202; 80305; 81003; 82375; 82550; 82553; 82728; 82805; 82962; 83036; 83605; 83615; 83880; 84145; 84439; 84443; 84484; 85025; 85027; 85379; 86850; 86900; 86920; 92610; 93005; 93306; 93970; 94002; 94003; 94640; 94644; 94660; 97116; 97162; 97530; 99291; C9113; J0330; J0360; J0885; J1200; J1650; J1815; J1940; J1956; J2060; J2250; J2270; J2405; J2543; J2704; J3010; J3370; J3480; J3490; J7050; J7060; P9016; U0003-CS

== ENCOUNTER 2020-07-11 21:46 | Inpatient (IN) | payer MEDICAID ==
[~2020-07-11] VITALS: Ht 154.9 cm; Wt 57.6 kg
[~2020-07-11 21:46] MED LIST changes: +AMLO10TA80 PO; -AZIT500T3 MT; +BENA10TA74 NG; -CLON0.1T14 PO; +CLON0.2T12 PO; +INSLIS SUBCUT; +LANTUSUD SUBCUT; +METO-539 PO
[2020-07-11] MEDS ORDERED: ACETAMINOPHEN 325MG TABLET PO STA (22:09)
[2020-07-11] MEDS ORDERED: ONDANSETRON HCL 4MG/2ML INJ IV ONE ×2 (22:30→23:15)
[2020-07-11] MEDS ORDERED: ACETAMINOPHEN 650MG SUPP PR ONE (23:15)
[2020-07-11] MEDS ORDERED: MORPHINE SULFATE 4 MG/ML CPJ (NOT FOR IM USE) IV ONE (23:15)
[2020-07-11 23:38] LABS: BASOPHILS % 0.6 % (0.0-2.0); EOSINOPHILS % 0.7 % (0.0-5.0); HEMATOCRIT. 37.2 % (36.0-48.0); HEMOGLOBIN. 12.2 g/dL (12.0-16.0); LYMPHOCYTES % 23.6 % (20.0-50.0); MEAN CORPUSCULAR VOLUME 85.8 fL (81.0-99.0); MEAN PLATELET VOLUME 8.9 fl (7.4-10.4); MONOCYTES % 10.1 % (2.0-8.0); PLATELET 369 x1000/uL (130-400); RED BLOOD CELL COUNT 4.34 mill/uL (4.2-5.4); RED CELL DISTRIBUTION WIDTH 19.6 % (11.6-14.6)
[2020-07-11 23:45] LABS: INR 0.9; PROTHROMBIN TIME 9.9 sec (9.6-11.0)
[2020-07-11 23:46] LABS: CHLORIDE 91 mEq/L (98-107)
[2020-07-12] MEDS ORDERED: DIPHENHYDRAMINE 50MG/ML VIAL IV SCH (01:00)
[2020-07-12] MEDS: METOCLOPRAMIDE HCL 10MG/2ML VIAL IV SCH ×2 (01:27→04:12)
[2020-07-12] MEDS ORDERED: PIPERACILLIN/TAZOBACTAM 3.375GM/50ML PREMIX IV SCH (03:00)
[2020-07-12] MEDS ORDERED: VANCOMYCIN 1 G PREMIX 200 ML IV SCH ×2 (03:00→06:00)
[2020-07-12 04:00] VITALS: BP 106/60
[2020-07-12] MEDS ORDERED: METOCLOPRAMIDE HCL 10MG/2ML VIAL IV ONE (04:00)
[2020-07-12 05:00] VITALS: BP 106/60
[2020-07-12] MEDS ORDERED: METOCLOPRAMIDE HCL 5MG TABLET PO PRN (05:30)
[2020-07-12] MEDS ORDERED: DEXTROSE 50% WATER 50ML SYRINGE IV PRN (05:45)
[2020-07-12] MEDS: MORPHINE SULFATE 2 MG/ML CPJ (NOT FOR IM USE) IV PRN ×2 (05:54→21:57)
[2020-07-12] MEDS ORDERED: HYDRALAZINE HCL 50MG TABLET PO SCH (06:00)
[2020-07-12 08:00] VITALS: BP 160/61
[2020-07-12] MEDS: INSULIN LISPRO 100 UNITS/ML SUBCUT SCH ×4 (08:10→21:00)
[2020-07-12] MEDS: BLOOD SUGAR DIAGNOSTIC STRIP TEST SCH ×4 (08:22→21:03)
[2020-07-12] MEDS ORDERED: INSULIN LISPRO 100 UNITS/ML SUBCUT NR (08:30)
[2020-07-12] MEDS: PIPERACILLIN/TAZOBACTAM 2.25 G in DEXTROSE 5% WATER 50 ML IV SCH ×2 (08:32→15:30)
[2020-07-12] MEDS ORDERED: MORPHINE SULFATE 2 MG/ML CPJ (NOT FOR IM USE) IV NR (08:45)
[2020-07-12] MEDS ORDERED: BENAZEPRIL 10MG TABLET PO SCH (09:00)
[2020-07-12] MEDS ORDERED: METOPROLOL TARTRATE 50MG TABLET PO SCH (09:00)
[2020-07-12] MEDS ORDERED: VANCOMYCIN 1 G PREMIX 200 ML IV NR (10:00)
[2020-07-12] MEDS: HYDROCODONE/ACETAMINOPHEN 10/325MG TABLET PO PRN (10:36)
[2020-07-12] MEDS ORDERED: LIDOCAINE HCL 1% 20ML VIAL (Pyxis) INJ ONE (10:52)
[2020-07-12] MEDS ORDERED: INSULIN GLARGINE UD 100 UNITS/ML SYR SUBCUT NR (11:00)
[2020-07-12 12:00] VITALS: BP 168/65
[2020-07-12] MEDS ORDERED: INSULIN LISPRO 100 UNITS/ML SUBCUT SCH ×2 (12:40)
[2020-07-12] MEDS: CLONIDINE 0.2MG TABLET PO SCH ×2 (13:03→21:38)
[2020-07-12] MEDS: ONDANSETRON HCL 4MG/2ML INJ IV PRN (13:34)
[2020-07-12 16:00] VITALS: BP 194/61
[2020-07-12] MEDS ORDERED: CLONIDINE 0.1MG TABLET PO NR (16:30)
[2020-07-12] MEDS: ENOXAPARIN 30MG/0.3ML SYR SUBCUT SCH (16:40)
[2020-07-12] MEDS: IPRATROPIUM/ALBUTEROL 0.5-3(2.5)MG/3ML NEB HHN PRN (18:59)
[2020-07-12 20:00] VITALS: BP 173/62
[2020-07-12] MEDS: INSULIN GLARGINE UD 100 UNITS/ML SYR SUBCUT SCH (21:27)
[2020-07-12] MEDS: METOPROLOL TARTRATE 100MG TABLET PO SCH (21:38)
[2020-07-12] MEDS: ATORVASTATIN CALCIUM 40MG TABLET PO SCH (21:38)
[2020-07-12] MEDS: HYDRALAZINE HCL 100MG TABLET PO SCH (21:38)
[2020-07-13] VITALS: BP 107/44
[2020-07-13] MEDS: PIPERACILLIN/TAZOBACTAM 2.25 G in DEXTROSE 5% WATER 50 ML IV SCH ×4 (02:42→23:28)
[2020-07-13 04:00] VITALS: BP 134/45
[2020-07-13] MEDS: MORPHINE SULFATE 2 MG/ML CPJ (NOT FOR IM USE) IV PRN ×4 (04:53→20:50)
[2020-07-13] MEDS: BLOOD SUGAR DIAGNOSTIC STRIP TEST SCH ×4 (06:33→20:42)
[2020-07-13] MEDS: CLONIDINE 0.2MG TABLET PO SCH ×3 (06:34→21:49)
[2020-07-13] MEDS: HYDRALAZINE HCL 100MG TABLET PO SCH ×3 (06:34→21:50)
[2020-07-13] MEDS: INSULIN LISPRO 100 UNITS/ML SUBCUT SCH ×4 (06:35→20:41)
[2020-07-13 06:38] LABS: HEMOGLOBIN. 11.3 g/dL (12.0-16.0); MEAN CORPUSCULAR HEMOGLOBIN 27.6 pg (28.0-32.0); MEAN CORPUSCULAR VOLUME 85.4 fL (81.0-99.0); MEAN PLATELET VOLUME 9.1 fl (7.4-10.4); PLATELET 333 x1000/uL (130-400); RED CELL DISTRIBUTION WIDTH 19.9 % (11.6-14.6)
[2020-07-13 08:00] VITALS: BP 160/39
[2020-07-13] MEDS: BENAZEPRIL 10MG TABLET PO SCH (09:22)
[2020-07-13] MEDS: METOPROLOL TARTRATE 100MG TABLET PO SCH ×2 (09:22→20:40)
[2020-07-13 12:00] VITALS: BP 142/51
[2020-07-13] MEDS ORDERED: VANCOMYCIN 500 MG PREMIX 100 ML IV NR (14:00)
[2020-07-13 16:00] VITALS: BP 138/49
[2020-07-13] MEDS: ENOXAPARIN 30MG/0.3ML SYR SUBCUT SCH (17:30)
[2020-07-13 17:49] LABS: PLATELET ESTIMATE NORMAL
[2020-07-13 19:55] LABS: AMYLASE 64 IU/L (25-115)
[2020-07-13 20:00] VITALS: BP 143/54
[2020-07-13] MEDS: ATORVASTATIN CALCIUM 40MG TABLET PO SCH (20:40)
[2020-07-13] MEDS: ONDANSETRON HCL 4MG/2ML INJ IV PRN (20:40)
[2020-07-13] MEDS: ACETAMINOPHEN 325MG TABLET PO PRN (21:49)
[2020-07-13] MEDS: INSULIN GLARGINE UD 100 UNITS/ML SYR SUBCUT SCH (21:50)
[2020-07-14] VITALS: BP 119/39
[2020-07-14 04:00] VITALS: BP 153/52
[2020-07-14 06:33] LABS: BASOPHILS % 0.7 % (0.0-2.0); EOSINOPHILS % 0.5 % (0.0-5.0); HEMATOCRIT. 34.9 % (36.0-48.0); HEMOGLOBIN. 11.3 g/dL (12.0-16.0); LYMPHOCYTES % 8.6 % (20.0-50.0); MEAN CORPUSCULAR HEMOGLOBIN 27.7 pg (28.0-32.0); MEAN CORPUSCULAR VOLUME 85.5 fL (81.0-99.0); MEAN PLATELET VOLUME 9.1 fl (7.4-10.4); MONOCYTES % 7.9 % (2.0-8.0); NEUTROPHILS % 82.3 % (40.0-76.0); PLATELET 294 x1000/uL (130-400); RED BLOOD CELL COUNT 4.08 mill/uL (4.2-5.4); RED CELL DISTRIBUTION WIDTH 19.3 % (11.6-14.6)
[2020-07-14] MEDS: CLONIDINE 0.2MG TABLET PO SCH ×3 (06:55→20:52)
[2020-07-14] MEDS: BLOOD SUGAR DIAGNOSTIC STRIP TEST SCH ×4 (06:55→20:56)
[2020-07-14] MEDS: HYDRALAZINE HCL 100MG TABLET PO SCH ×3 (06:55→20:52)
[2020-07-14] MEDS: MORPHINE SULFATE 2 MG/ML CPJ (NOT FOR IM USE) IV PRN ×3 (06:55→21:35)
[2020-07-14] MEDS: INSULIN LISPRO 100 UNITS/ML SUBCUT SCH ×4 (06:55→20:55)
[2020-07-14 08:00] VITALS: BP 133/49
[2020-07-14] MEDS: PIPERACILLIN/TAZOBACTAM 2.25 G in DEXTROSE 5% WATER 50 ML IV SCH ×2 (08:54→16:00)
[2020-07-14] MEDS: BENAZEPRIL 10MG TABLET PO SCH (08:54)
[2020-07-14] MEDS: METOPROLOL TARTRATE 100MG TABLET PO SCH ×2 (08:55→20:51)
[2020-07-14] MEDS: IPRATROPIUM/ALBUTEROL 0.5-3(2.5)MG/3ML NEB HHN PRN ×3 (09:19→18:38)
[2020-07-14 12:00] VITALS: BP 129/39
[2020-07-14 15:43] LABS: CLARITY URINE CLOUDY (CLEAR); COLOR URINE YELLOW (YELLOW); KETONES URINE NEGATIVE (NEGATIVE); LEUKOCYTE ESTERASE URINE NEGATIVE (NEGATIVE); NITRITE URINE NEGATIVE (NEGATIVE); OCCULT BLOOD URINE NEGATIVE (NEGATIVE); PROTEIN URINE 4+ (NEGATIVE); SPECIFIC GRAVITY URINE 1.021 (1.005-1.030); UROBILINOGEN URINE 0.2 E.U./dL (0.2-1.0)
[2020-07-14 16:00] VITALS: BP 159/87
[2020-07-14 16:17] LABS: *BARBITURATES SCREEN URINE NEGATIVE (NEGATIVE); *BENZODIAZEPINES SCREEN URINE NEGATIVE (NEGATIVE); *COCAINE SCREEN URINE NEGATIVE (NEGATIVE); CANNABINOID URINE SCREEN NEGATIVE (NEGATIVE); METHADONE URINE SCREEN NEGATIVE (NEGATIVE); OPIATES URINE SCREEN PRESUMTIVE POSITIVE (NEGATIVE)
[2020-07-14 16:18] LABS: *AMPHETAMINES SCREEN URINE NEGATIVE (NEGATIVE); PHENCYCLIDINE URINE SCREEN NEGATIVE (NEGATIVE)
[2020-07-14] MEDS: ENOXAPARIN 30MG/0.3ML SYR SUBCUT SCH (17:00)
[2020-07-14] MEDS ORDERED: NIFEDIPINE XL 60MG TAB PO NR (19:39)
[2020-07-14 20:00] VITALS: BP 161/42
[2020-07-14] MEDS: ATORVASTATIN CALCIUM 40MG TABLET PO SCH (20:52)
[2020-07-14] MEDS ORDERED: IOHEXOL-300 100 ML BOTTLE ONE (22:37)
[2020-07-14] MEDS: INSULIN GLARGINE UD 100 UNITS/ML SYR SUBCUT SCH (23:01)
[2020-07-15] VITALS: BP 102/41
[2020-07-15] MEDS: PIPERACILLIN/TAZOBACTAM 2.25 G in DEXTROSE 5% WATER 50 ML IV SCH ×3 (00:33→15:44)
[2020-07-15 04:00] VITALS: BP 146/49
[2020-07-15] MEDS: MORPHINE SULFATE 2 MG/ML CPJ (NOT FOR IM USE) IV PRN ×4 (04:18→20:50)
[2020-07-15] MEDS: CLONIDINE 0.2MG TABLET PO SCH ×3 (06:28→21:03)
[2020-07-15] MEDS: HYDRALAZINE HCL 100MG TABLET PO SCH ×3 (06:28→21:03)
[2020-07-15] MEDS: INSULIN LISPRO 100 UNITS/ML SUBCUT SCH ×4 (06:28→20:40)
[2020-07-15] MEDS: BLOOD SUGAR DIAGNOSTIC STRIP TEST SCH ×4 (06:28→20:40)
[2020-07-15 07:16] LABS: BASOPHILS % 0.7 % (0.0-2.0); EOSINOPHILS % 0.3 % (0.0-5.0); HEMATOCRIT. 33.7 % (36.0-48.0); HEMOGLOBIN. 10.8 g/dL (12.0-16.0); LYMPHOCYTES % 8.6 % (20.0-50.0); MEAN CORPUSCULAR HEMOGLOBIN 27.6 pg (28.0-32.0); MEAN CORPUSCULAR VOLUME 85.9 fL (81.0-99.0); MEAN PLATELET VOLUME 9.3 fl (7.4-10.4); MONOCYTES % 12.3 % (2.0-8.0); NEUTROPHILS % 78.1 % (40.0-76.0); PLATELET 246 x1000/uL (130-400); RED BLOOD CELL COUNT 3.92 mill/uL (4.2-5.4); RED CELL DISTRIBUTION WIDTH 18.2 % (11.6-14.6)
[2020-07-15 07:52] VITALS: BP 149/60
[2020-07-15] MEDS: BENAZEPRIL 10MG TABLET PO SCH (08:24)
[2020-07-15] MEDS: METOPROLOL TARTRATE 100MG TABLET PO SCH ×2 (08:25→20:48)
[2020-07-15 11:52] VITALS: BP 132/41
[2020-07-15 15:38] VITALS: BP 151/54
[2020-07-15] MEDS: ENOXAPARIN 30MG/0.3ML SYR SUBCUT SCH (17:20)
[2020-07-15 20:00] VITALS: BP 158/45
[2020-07-15] MEDS: ATORVASTATIN CALCIUM 40MG TABLET PO SCH (20:48)
[2020-07-15] MEDS: OMEPRAZOLE 20MG CAPSULE EXTENDED RELEASE PO SCH (20:48)
[2020-07-15] MEDS: INSULIN GLARGINE UD 100 UNITS/ML SYR SUBCUT SCH (21:08)
[2020-07-16] VITALS (8 sets, daily range): BP systolic 116–175; BP diastolic 39–68
[2020-07-16] MEDS: MORPHINE SULFATE 2 MG/ML CPJ (NOT FOR IM USE) IV PRN ×5 (00:51→21:40)
[2020-07-16] MEDS: PIPERACILLIN/TAZOBACTAM 2.25 G in DEXTROSE 5% WATER 50 ML IV SCH ×4 (00:56→23:06)
[2020-07-16] MEDS: HYDRALAZINE HCL 100MG TABLET PO SCH ×3 (05:23→21:33)
[2020-07-16] MEDS: CLONIDINE 0.2MG TABLET PO SCH ×2 (05:23→14:19)
[2020-07-16] MEDS: BLOOD SUGAR DIAGNOSTIC STRIP TEST SCH ×4 (05:24→20:38)
[2020-07-16] MEDS: OMEPRAZOLE 20MG CAPSULE EXTENDED RELEASE PO SCH ×2 (05:24→20:37)
[2020-07-16] MEDS: INSULIN LISPRO 100 UNITS/ML SUBCUT SCH ×4 (06:43→20:43)
[2020-07-16] MEDS: METOPROLOL TARTRATE 100MG TABLET PO SCH ×2 (08:19→20:38)
[2020-07-16] MEDS: BENAZEPRIL 10MG TABLET PO SCH (08:19)
[2020-07-16 15:45] LABS: BASOPHILS % 0.6 % (0.0-2.0); EOSINOPHILS % 1.5 % (0.0-5.0); HEMATOCRIT. 33.2 % (36.0-48.0); HEMOGLOBIN. 10.8 g/dL (12.0-16.0); LYMPHOCYTES % 10.4 % (20.0-50.0); MEAN CORPUSCULAR VOLUME 86.4 fL (81.0-99.0); MEAN PLATELET VOLUME 10.4 fl (7.4-10.4); MONOCYTES % 10.4 % (2.0-8.0); NEUTROPHILS % 77.1 % (40.0-76.0); PLATELET 266 x1000/uL (130-400); RED BLOOD CELL COUNT 3.84 mill/uL (4.2-5.4); RED CELL DISTRIBUTION WIDTH 18.7 % (11.6-14.6)
[2020-07-16] MEDS: ENOXAPARIN 30MG/0.3ML SYR SUBCUT SCH (16:53)
[2020-07-16] MEDS: ACETAMINOPHEN 325MG TABLET PO PRN ×2 (17:21→20:37)
[2020-07-16] MEDS: CLONIDINE 0.1MG TABLET PO PRN (18:30)
[2020-07-16] MEDS: ATORVASTATIN CALCIUM 40MG TABLET PO SCH (20:37)
[2020-07-16] MEDS: CLONIDINE 0.3MG TABLET PO SCH (21:33)
[2020-07-16] MEDS: INSULIN GLARGINE UD 100 UNITS/ML SYR SUBCUT SCH (21:38)
[2020-07-17] VITALS (10 sets, daily range): BP systolic 114–220; BP diastolic 42–75
[2020-07-17] MEDS: HYDROCODONE/ACETAMINOPHEN 10/325MG TABLET PO PRN (01:51)
[2020-07-17] MEDS: CLONIDINE 0.1MG TABLET PO PRN (01:52)
[2020-07-17] MEDS: CLONIDINE 0.3MG TABLET PO SCH ×3 (06:00→21:16)
[2020-07-17] MEDS: HYDRALAZINE HCL 100MG TABLET PO SCH ×3 (06:00→21:15)
[2020-07-17 06:46] LABS: BASOPHILS % 0.8 % (0.0-2.0); EOSINOPHILS % 2.4 % (0.0-5.0); HEMATOCRIT. 32.5 % (36.0-48.0); HEMOGLOBIN. 10.6 g/dL (12.0-16.0); LYMPHOCYTES % 13.4 % (20.0-50.0); MEAN CORPUSCULAR HEMOGLOBIN 27.8 pg (28.0-32.0); MEAN CORPUSCULAR VOLUME 85.6 fL (81.0-99.0); MEAN PLATELET VOLUME 9.8 fl (7.4-10.4); MONOCYTES % 11.1 % (2.0-8.0); NEUTROPHILS % 72.3 % (40.0-76.0); PLATELET 250 x1000/uL (130-400); RED BLOOD CELL COUNT 3.79 mill/uL (4.2-5.4); RED CELL DISTRIBUTION WIDTH 17.8 % (11.6-14.6)
[2020-07-17] MEDS: BLOOD SUGAR DIAGNOSTIC STRIP TEST SCH ×4 (06:47→21:00)
[2020-07-17] MEDS: INSULIN LISPRO 100 UNITS/ML SUBCUT SCH ×4 (06:47→21:00)
[2020-07-17] MEDS: OMEPRAZOLE 20MG CAPSULE EXTENDED RELEASE PO SCH ×2 (06:52→21:15)
[2020-07-17] MEDS: BENAZEPRIL 10MG TABLET PO SCH (08:53)
[2020-07-17] MEDS: METOPROLOL TARTRATE 100MG TABLET PO SCH ×2 (08:53→21:22)
[2020-07-17] MEDS: PIPERACILLIN/TAZOBACTAM 2.25 G in DEXTROSE 5% WATER 50 ML IV SCH ×2 (10:34→16:23)
[2020-07-17] MEDS ORDERED: MORPHINE SULFATE 2 MG/ML CPJ (NOT FOR IM USE) IV NR (12:04)
[2020-07-17] MEDS ORDERED: HYDROCODONE/ACETAMINOPHEN 10/325MG TABLET PO PRN (16:15)
[2020-07-17] MEDS: MORPHINE SULFATE 2 MG/ML CPJ (NOT FOR IM USE) IV PRN ×2 (16:24→21:15)
[2020-07-17] MEDS: ENOXAPARIN 30MG/0.3ML SYR SUBCUT SCH (17:20)
[2020-07-17] MEDS: ATORVASTATIN CALCIUM 40MG TABLET PO SCH (21:15)
[2020-07-18] VITALS: BP 199/79
[2020-07-18] MEDS: CLONIDINE 0.1MG TABLET PO PRN (00:52)
[2020-07-18] MEDS: MORPHINE SULFATE 2 MG/ML CPJ (NOT FOR IM USE) IV PRN ×3 (03:20→23:28)
[2020-07-18 04:00] VITALS: BP 196/64
[2020-07-18] MEDS: HYDRALAZINE HCL 100MG TABLET PO SCH ×3 (05:47→22:33)
[2020-07-18] MEDS: OMEPRAZOLE 20MG CAPSULE EXTENDED RELEASE PO SCH ×2 (05:47→22:31)
[2020-07-18] MEDS: CLONIDINE 0.3MG TABLET PO SCH ×3 (05:48→22:33)
[2020-07-18] MEDS: BLOOD SUGAR DIAGNOSTIC STRIP TEST SCH ×4 (05:48→21:00)
[2020-07-18] MEDS: INSULIN LISPRO 100 UNITS/ML SUBCUT SCH ×4 (06:27→23:48)
[2020-07-18 06:51] LABS: BASOPHILS % 0.5 % (0.0-2.0); EOSINOPHILS % 2.7 % (0.0-5.0); HEMATOCRIT. 34.6 % (36.0-48.0); HEMOGLOBIN. 11.4 g/dL (12.0-16.0); LYMPHOCYTES % 13.5 % (20.0-50.0); MEAN CORPUSCULAR HEMOGLOBIN 27.7 pg (28.0-32.0); MEAN PLATELET VOLUME 9.7 fl (7.4-10.4); MONOCYTES % 8.6 % (2.0-8.0); NEUTROPHILS % 74.7 % (40.0-76.0); PLATELET 317 x1000/uL (130-400); RED BLOOD CELL COUNT 4.12 mill/uL (4.2-5.4)
[2020-07-18 08:00] VITALS: BP_SYST 127; BP_SYST 167; BP_DIAS 45; BP_DIAS 72
[2020-07-18] MEDS: METOPROLOL TARTRATE 100MG TABLET PO SCH ×2 (09:00→22:32)
[2020-07-18] MEDS: BENAZEPRIL 10MG TABLET PO SCH (10:01)
[2020-07-18] MEDS: ONDANSETRON HCL 4MG/2ML INJ IV PRN (10:07)
[2020-07-18 12:00] VITALS: BP 147/57
[2020-07-18 16:00] VITALS: BP 149/61
[2020-07-18] MEDS: ENOXAPARIN 30MG/0.3ML SYR SUBCUT SCH (17:01)
[2020-07-18 20:00] VITALS: BP 195/82
[2020-07-18] MEDS: ATORVASTATIN CALCIUM 40MG TABLET PO SCH (22:31)
[2020-07-18] MEDS: BISMUTH SUBSALICYLATE 262 MG/15 ML-120ML BOTTLE PO SCH (22:42)
[2020-07-19] VITALS (8 sets, daily range): BP systolic 107–216; BP diastolic 42–81
[2020-07-19] MEDS: CLONIDINE 0.1MG TABLET PO PRN (04:08)
[2020-07-19] MEDS: MORPHINE SULFATE 2 MG/ML CPJ (NOT FOR IM USE) IV PRN (04:09)
[2020-07-19] MEDS: OMEPRAZOLE 20MG CAPSULE EXTENDED RELEASE PO SCH ×3 (05:38→21:48)
[2020-07-19] MEDS: CLONIDINE 0.3MG TABLET PO SCH ×3 (05:39→21:51)
[2020-07-19] MEDS: HYDRALAZINE HCL 100MG TABLET PO SCH ×3 (05:39→21:51)
[2020-07-19] MEDS: BLOOD SUGAR DIAGNOSTIC STRIP TEST SCH ×4 (06:39→21:48)
[2020-07-19] MEDS: INSULIN LISPRO 100 UNITS/ML SUBCUT SCH ×4 (06:43→22:08)
[2020-07-19] MEDS: METOPROLOL TARTRATE 100MG TABLET PO SCH ×2 (09:01→21:50)
[2020-07-19] MEDS: BENAZEPRIL 10MG TABLET PO SCH (09:02)
[2020-07-19] MEDS: BISMUTH SUBSALICYLATE 262 MG/15 ML-120ML BOTTLE PO SCH ×3 (10:32→16:39)
[2020-07-19] MEDS ORDERED: METO5TAB86 MT (15:27)
[2020-07-19] MEDS ORDERED: HYDR-4009 MT (15:27)
[2020-07-19] MEDS ORDERED: CLON0.3T PO (15:27)
[2020-07-19] MEDS ORDERED: BENA10TA74 PO (15:27)
[2020-07-19] MEDS ORDERED: MINOXIDIL 2.5MG TABLET PO NR (16:04)
[2020-07-19] MEDS: ENOXAPARIN 30MG/0.3ML SYR SUBCUT SCH (17:19)
[2020-07-19] MEDS ORDERED: LABETALOL 5MG/ML SYR 20 MG/4 ML SYRINGE IV NR (17:30)
[2020-07-19] MEDS ORDERED: LABETALOL HCL 20MG/4ML CARPUJECT IV NR (19:30)
[2020-07-19] MEDS: ATORVASTATIN CALCIUM 40MG TABLET PO SCH (21:48)
[2020-07-20] VITALS (7 sets, daily range): BP systolic 139–190; BP diastolic 44–81
[2020-07-20] MEDS: CLONIDINE 0.3MG TABLET PO SCH ×3 (05:01→22:31)
[2020-07-20] MEDS: CLONIDINE 0.1MG TABLET PO PRN (05:01)
[2020-07-20] MEDS: HYDRALAZINE HCL 100MG TABLET PO SCH ×3 (05:02→22:31)
[2020-07-20 06:20] LABS: BASOPHILS % 0.6 % (0.0-2.0); HEMATOCRIT. 33.5 % (36.0-48.0); HEMOGLOBIN. 10.9 g/dL (12.0-16.0); LYMPHOCYTES % 22.3 % (20.0-50.0); MEAN CORPUSCULAR HEMOGLOBIN 27.6 pg (28.0-32.0); MEAN CORPUSCULAR VOLUME 84.7 fL (81.0-99.0); MEAN PLATELET VOLUME 9.3 fl (7.4-10.4); MONOCYTES % 12.5 % (2.0-8.0); NEUTROPHILS % 60.6 % (40.0-76.0); PLATELET 298 x1000/uL (130-400); RED BLOOD CELL COUNT 3.96 mill/uL (4.2-5.4)
[2020-07-20] MEDS: INSULIN LISPRO 100 UNITS/ML SUBCUT SCH ×4 (06:50→21:00)
[2020-07-20] MEDS: BLOOD SUGAR DIAGNOSTIC STRIP TEST SCH ×4 (06:50→21:00)
[2020-07-20] MEDS: OMEPRAZOLE 20MG CAPSULE EXTENDED RELEASE PO SCH ×2 (06:51→22:30)
[2020-07-20] MEDS: BISMUTH SUBSALICYLATE 262 MG/15 ML-120ML BOTTLE PO SCH ×3 (08:00→16:58)
[2020-07-20] MEDS ORDERED: MINOXIDIL 2.5MG TABLET PO SCH (09:00)
[2020-07-20] MEDS: METOPROLOL TARTRATE 100MG TABLET PO SCH ×2 (09:12→22:30)
[2020-07-20] MEDS: BENAZEPRIL 10MG TABLET PO SCH (09:13)
[2020-07-20] MEDS ORDERED: LABETALOL 5MG/ML SYR 20 MG/4 ML SYRINGE IV NR (13:00)
[2020-07-20] MEDS: MINOXIDIL 2.5MG TABLET PO SCH (15:45)
[2020-07-20] MEDS: ENOXAPARIN 30MG/0.3ML SYR SUBCUT SCH (18:03)
[2020-07-20] MEDS: ATORVASTATIN CALCIUM 40MG TABLET PO SCH (22:30)
[2020-07-21] VITALS (7 sets, daily range): BP systolic 154–206; BP diastolic 53–65
[2020-07-21] MEDS: HYDRALAZINE HCL 100MG TABLET PO SCH ×2 (06:21→13:56)
[2020-07-21] MEDS: BLOOD SUGAR DIAGNOSTIC STRIP TEST SCH ×2 (06:22→11:45)
[2020-07-21] MEDS: OMEPRAZOLE 20MG CAPSULE EXTENDED RELEASE PO SCH (06:22)
[2020-07-21] MEDS: CLONIDINE 0.3MG TABLET PO SCH ×2 (06:22→13:56)
[2020-07-21] MEDS: INSULIN LISPRO 100 UNITS/ML SUBCUT SCH ×2 (06:59→13:02)
[2020-07-21] MEDS: BISMUTH SUBSALICYLATE 262 MG/15 ML-120ML BOTTLE PO SCH ×2 (09:00→13:00)
[2020-07-21] MEDS: BENAZEPRIL 10MG TABLET PO SCH (11:17)
[2020-07-21] MEDS: MINOXIDIL 2.5MG TABLET PO SCH (11:17)
[2020-07-21] MEDS: METOPROLOL TARTRATE 100MG TABLET PO SCH (11:18)
[2020-07-21] MEDS ORDERED: NIFE-32 MT (11:39)
[2020-07-21] MEDS ORDERED: NIFEDIPINE XL 60MG TAB PO SCH (12:00)
[2020-07-23 04:07] LABS: OVA & PARASITE EXAM Final report (.)
[2020-07-25 15:10] LABS: SACCHAROMYCES CEREVISIAE IGG <20.0 Units (0.0-24.9); SACCHAROMYCES CEREVISIAE IGM <20.0 Units (0.0-24.9)
[2020-07-26 14:09] LABS: ATYPICAL pANCA <1:20 titer (Neg:<1:20)
[2020-08-03] MEDS ORDERED: SENN-170 MT (12:22)
[2020-08-03] MEDS ORDERED: TOPUD PO (12:22)
[2020-08-03] MEDS ORDERED: METO5TAB86 MT (12:22)
[2020-08-03] MEDS ORDERED: MOM PO (12:22)
[2020-08-03] MEDS ORDERED: DOCU-150 PO (12:22)
[2020-08-04] MEDS ORDERED: NIFE-32 MT (12:46)
[2020-08-04] MEDS ORDERED: TRAM50TA3 PO (12:46)
== END 2020-07-21 16:00 | disposition home or self-care (01) | DRG 720 ==
LOC: ER 21:46 → 7WST 07-12 03:01 → EDBEDREQDT 07-12 03:04 → EDBEDREQSVC 07-12 03:04 → EDBEDREQTM 07-12 03:04 → EDBEDREQ 07-12 03:04 → ENRESERV 07-12 03:51 → 5WST 07-12 18:31
PROVIDERS: ADMIT Internal Medicine; ATTEND Internal Medicine
PROC: 5A1D70Z Performance of Urinary Filtration, Intermittent, Less than 6 Hours Per Day (ICD-10-PCS; principal; 2020-07-12)
PROC: 05HY33Z Insertion of Infusion Device into Upper Vein, Percutaneous Approach (ICD-10-PCS; 2020-07-12)
PROC: B54MZZA Ultrasonography of Right Upper Extremity Veins, Guidance (ICD-10-PCS; 2020-07-12)
PROC: 5A1D70Z Performance of Urinary Filtration, Intermittent, Less than 6 Hours Per Day (ICD-10-PCS; 2020-07-14)
PROC: 5A1D70Z Performance of Urinary Filtration, Intermittent, Less than 6 Hours Per Day (ICD-10-PCS; 2020-07-15)
PROC: 5A1D70Z Performance of Urinary Filtration, Intermittent, Less than 6 Hours Per Day (ICD-10-PCS; 2020-07-18)
PROC: 5A1D70Z Performance of Urinary Filtration, Intermittent, Less than 6 Hours Per Day (ICD-10-PCS; 2020-07-20)
PROC: 5A1D70Z Performance of Urinary Filtration, Intermittent, Less than 6 Hours Per Day (ICD-10-PCS; 2020-07-21)
DX: A41.9 Sepsis, unspecified organism (principal); E87.1 Hypo-osmolality and hyponatremia; I13.2 Hypertensive heart and chronic kidney disease with heart failure and with stage 5 chronic kidney disease, or end stage renal disease; N18.6 End stage renal disease; I50.32 Chronic diastolic (congestive) heart failure; I16.0 Hypertensive urgency; F12.90 Cannabis use, unspecified, uncomplicated; E87.8 Other disorders of electrolyte and fluid balance, not elsewhere classified; E78.5 Hyperlipidemia, unspecified; Z20.828 Contact with and (suspected) exposure to other viral communicable diseases; E11.22 Type 2 diabetes mellitus with diabetic chronic kidney disease; E11.43 Type 2 diabetes mellitus with diabetic autonomic (poly)neuropathy; E11.65 Type 2 diabetes mellitus with hyperglycemia; E87.5 Hyperkalemia; Z85.528 Personal history of other malignant neoplasm of kidney; Z99.2 Dependence on renal dialysis; Z79.899 Other long term (current) drug therapy; Z79.4 Long term (current) use of insulin; A09 Infectious gastroenteritis and colitis, unspecified; K29.70 Gastritis, unspecified, without bleeding; R07.89 Other chest pain
CPT/HCPCS: 36415; 71045; 74177; 76700; 76937; 80048; 80053; 80202; 80305; 81003; 82150; 82962; 83036; 83605; 84145; 84484; 85025; 86256; 86671; 87015; 87045; 87106; 87177; 87209; 87427; 87449; 87635; 87804; 89055; 93005; 94640; 99291; C1725; J1200; J1650; J1815; J2270; J2405; J2543; J2765; J3370; J3490; J7060; Q9967

== ENCOUNTER 2020-08-01 06:41 | Inpatient (IN) | payer MEDICAID ==
[~2020-08-01] VITALS: Ht 154.9 cm; Wt 58.7 kg
[~2020-08-01 06:41] MED LIST changes: -AMLO10TA80 PO; -BENA10TA74 NG; +BENA10TA74 PO; -CLON0.2T12 PO; +CLON0.3T PO; +HYDR-4009 MT; +NIFE-32 MT
[2020-08-01] MEDS ORDERED: FAMOTIDINE 20MG/2ML VIAL IV STA (06:57)
[2020-08-01] MEDS ORDERED: MORPHINE SULFATE 4 MG/ML CPJ (NOT FOR IM USE) IV STA (06:57)
[2020-08-01] MEDS ORDERED: SODIUM CHLORIDE 0.9% 1,000 ML IV ONE (06:57)
[2020-08-01] MEDS ORDERED: ONDANSETRON HCL 4MG/2ML INJ IV STA (06:57)
[2020-08-01] MEDS ORDERED: METOCLOPRAMIDE HCL 10MG/2ML VIAL IV ONE ×2 (08:00→18:00)
[2020-08-01] MEDS ORDERED: MORPHINE SULFATE 4 MG/ML CPJ (NOT FOR IM USE) IV ONE (08:00)
[2020-08-01 08:08] LABS: HEMATOCRIT. 34.6 % (36.0-48.0); HEMOGLOBIN. 11.1 g/dL (12.0-16.0); MEAN CORPUSCULAR HEMOGLOBIN 27.7 pg (28.0-32.0); MEAN CORPUSCULAR VOLUME 86.3 fL (81.0-99.0); MEAN PLATELET VOLUME 8.7 fl (7.4-10.4); PLATELET 343 x1000/uL (130-400); RED BLOOD CELL COUNT 4.01 mill/uL (4.2-5.4); RED CELL DISTRIBUTION WIDTH 19.2 % (11.6-14.6)
[2020-08-01 08:12] LABS: CHLORIDE 97 mEq/L (98-107)
[2020-08-01 08:16] LABS: PROTHROMBIN TIME 10.5 sec (9.6-11.0)
[2020-08-01 08:28] LABS: HCG SCREEN NEGATIVE
[2020-08-01 08:51] LABS: PLATELET ESTIMATE NORMAL
[2020-08-01] MEDS: PANTOPRAZOLE SODIUM 40 MG/VIAL IV SCH (12:01)
[2020-08-01] MEDS ORDERED: DEXTROSE 50% WATER 50ML SYRINGE IV PRN (13:30)
[2020-08-01] MEDS ORDERED: TRAZODONE HCL 50MG TABLET PO PRN (13:30)
[2020-08-01] MEDS ORDERED: ACETAMINOPHEN 325MG TABLET PO PRN (13:30)
[2020-08-01] MEDS ORDERED: ONDANSETRON HCL 4MG/2ML INJ IV PRN (13:30)
[2020-08-01] MEDS: METOCLOPRAMIDE HCL 10MG/2ML VIAL IV SCH ×2 (13:58→18:00)
[2020-08-01] MEDS ORDERED: SENNOSIDES/DOCUSATE SOD 8.6/50MG TABLET PO PRN (14:00)
[2020-08-01] MEDS ORDERED: DOCUSATE SODIUM 100MG CAPSULE PO PRN (14:00)
[2020-08-01] MEDS ORDERED: POLYETHYLENE GLYCOL 3350 (17GM) 1 DOSE PACK PO PRN (14:00)
[2020-08-01] MEDS ORDERED: BISACODYL 10MG SUPP PR PRN (14:00)
[2020-08-01] MEDS ORDERED: MAGNESIUM HYDROXIDE 400MG/5ML 30ML UDC PO PRN (14:00)
[2020-08-01] MEDS: HYDROCODONE/ACETAMINOPHEN 10/325MG TABLET PO PRN (14:06)
[2020-08-01] MEDS ORDERED: MAGNESIUM CITRATE 300ML SOLUTION PO NR (14:30)
[2020-08-01] MEDS: LABETALOL 5MG/ML SYR 20 MG/4 ML SYRINGE IV PRN (15:18)
[2020-08-01] MEDS: METOPROLOL TARTRATE 5MG/5ML VIAL IV SCH ×2 (15:30→22:00)
[2020-08-01] MEDS ORDERED: ONDANSETRON HCL 4MG/2ML INJ IV NR (15:47)
[2020-08-01] MEDS: NIFEDIPINE XL 60MG TAB PO SCH (17:44)
[2020-08-01] MEDS: ATORVASTATIN CALCIUM 40MG TABLET PO SCH (17:45)
[2020-08-01] MEDS: BLOOD SUGAR DIAGNOSTIC STRIP TEST SCH ×2 (17:46→19:47)
[2020-08-01] MEDS: HYDRALAZINE HCL 25MG TABLET PO SCH ×2 (17:58→22:00)
[2020-08-01] MEDS: CLONIDINE 0.3MG TABLET PO SCH ×2 (19:41→22:00)
[2020-08-01] MEDS: INSULIN LISPRO 100 UNITS/ML SUBCUT SCH ×2 (19:57→21:00)
[2020-08-01] MEDS ORDERED: METOPROLOL TARTRATE 50MG TABLET PO SCH (21:00)
[2020-08-01] MEDS: HYDROMORPHONE HCL 2MG TABLET PO PRN (21:11)
[2020-08-01 21:30] VITALS: BP 110/41
[2020-08-01] MEDS: HEPARIN 5000 UNITS/ML VIAL SUBCUT SCH (21:51)
[2020-08-01 22:00] VITALS: BP 110/41
[2020-08-02] VITALS (7 sets, daily range): BP systolic 109–166; BP diastolic 42–77
[2020-08-02] MEDS: METOCLOPRAMIDE HCL 10MG/2ML VIAL IV SCH ×5 (00:08→23:08)
[2020-08-02] MEDS: HYDROMORPHONE HCL 2MG TABLET PO PRN (05:35)
[2020-08-02] MEDS: METOPROLOL TARTRATE 5MG/5ML VIAL IV SCH (06:00)
[2020-08-02] MEDS: HYDRALAZINE HCL 25MG TABLET PO SCH (06:00)
[2020-08-02] MEDS: CLONIDINE 0.3MG TABLET PO SCH (06:25)
[2020-08-02] MEDS: INSULIN LISPRO 100 UNITS/ML SUBCUT SCH ×4 (06:26→20:24)
[2020-08-02] MEDS: BLOOD SUGAR DIAGNOSTIC STRIP TEST SCH ×4 (06:26→20:24)
[2020-08-02] MEDS: PANTOPRAZOLE SODIUM 40 MG/VIAL IV SCH (08:53)
[2020-08-02] MEDS: ATORVASTATIN CALCIUM 40MG TABLET PO SCH (08:53)
[2020-08-02] MEDS: HEPARIN 5000 UNITS/ML VIAL SUBCUT SCH ×2 (08:55→20:15)
[2020-08-02] MEDS: NIFEDIPINE XL 60MG TAB PO SCH (08:55)
[2020-08-02 09:47] LABS: HEMATOCRIT. 30.7 % (36.0-48.0); HEMOGLOBIN. 9.9 g/dL (12.0-16.0); MEAN CORPUSCULAR HEMOGLOBIN 27.5 pg (28.0-32.0); MEAN CORPUSCULAR VOLUME 85.6 fL (81.0-99.0); MEAN PLATELET VOLUME 8.8 fl (7.4-10.4); PLATELET 297 x1000/uL (130-400); RED BLOOD CELL COUNT 3.59 mill/uL (4.2-5.4)
[2020-08-02] MEDS ORDERED: INSULIN GLARGINE UD 100 UNITS/ML SYR SUBCUT SCH ×2 (10:00)
[2020-08-02 10:23] LABS: CHLORIDE 100 mEq/L (98-107)
[2020-08-02 10:32] LABS: T4 FREE 1.62 ng/dL (0.76-1.46)
[2020-08-02 14:43] LABS: PLATELET ESTIMATE NORMAL
[2020-08-02] MEDS: HYDRALAZINE HCL 50MG TABLET PO SCH ×2 (15:37→22:36)
[2020-08-02] MEDS: CLONIDINE 0.1MG TABLET PO SCH ×2 (15:38→22:00)
[2020-08-02] MEDS ORDERED: METOCLOPRAMIDE HCL 10MG/2ML VIAL IV SCH (18:00)
[2020-08-03] VITALS (7 sets, daily range): BP systolic 108–162; BP diastolic 52–82
[2020-08-03] MEDS: HYDROMORPHONE HCL 2MG TABLET PO PRN ×2 (00:05→05:17)
[2020-08-03 03:17] LABS: *AMPHETAMINES SCREEN URINE NEGATIVE (NEGATIVE); *COCAINE SCREEN URINE NEGATIVE (NEGATIVE); CANNABINOID URINE SCREEN NEGATIVE (NEGATIVE); METHADONE URINE SCREEN NEGATIVE (NEGATIVE); OPIATES URINE SCREEN PRESUMTIVE POSITIVE (NEGATIVE); PHENCYCLIDINE URINE SCREEN NEGATIVE (NEGATIVE)
[2020-08-03 03:18] LABS: *BENZODIAZEPINES SCREEN URINE NEGATIVE (NEGATIVE)
[2020-08-03 03:20] LABS: *BARBITURATES SCREEN URINE NEGATIVE (NEGATIVE)
[2020-08-03] MEDS: METOCLOPRAMIDE HCL 10MG/2ML VIAL IV SCH ×3 (05:34→17:21)
[2020-08-03] MEDS: HYDRALAZINE HCL 50MG TABLET PO SCH (06:08)
[2020-08-03] MEDS: CLONIDINE 0.1MG TABLET PO SCH (06:08)
[2020-08-03] MEDS: INSULIN LISPRO 100 UNITS/ML SUBCUT SCH ×4 (06:12→22:05)
[2020-08-03] MEDS: BLOOD SUGAR DIAGNOSTIC STRIP TEST SCH ×4 (06:12→21:21)
[2020-08-03] MEDS: PANTOPRAZOLE SODIUM 40 MG/VIAL IV SCH (08:33)
[2020-08-03 08:34] LABS: CHLORIDE 97 mEq/L (98-107)
[2020-08-03] MEDS: ATORVASTATIN CALCIUM 40MG TABLET PO SCH (08:34)
[2020-08-03 08:36] LABS: BASOPHILS % 1.4 % (0.0-2.0); EOSINOPHILS % 5.9 % (0.0-5.0); HEMATOCRIT. 33.4 % (36.0-48.0); HEMOGLOBIN. 10.8 g/dL (12.0-16.0); MEAN CORPUSCULAR HEMOGLOBIN 27.5 pg (28.0-32.0); MEAN CORPUSCULAR VOLUME 85.4 fL (81.0-99.0); MEAN PLATELET VOLUME 9.1 fl (7.4-10.4); MONOCYTES % 11.4 % (2.0-8.0); NEUTROPHILS % 63.3 % (40.0-76.0); PLATELET 285 x1000/uL (130-400); RED BLOOD CELL COUNT 3.91 mill/uL (4.2-5.4); RED CELL DISTRIBUTION WIDTH 19.1 % (11.6-14.6)
[2020-08-03] MEDS: NIFEDIPINE XL 60MG TAB PO SCH (08:38)
[2020-08-03] MEDS: HEPARIN 5000 UNITS/ML VIAL SUBCUT SCH ×2 (08:39→21:00)
[2020-08-03 08:41] LABS: TOTAL IRON BINDING CAPACITY 173 ug/dL (250-450)
[2020-08-03 08:50] LABS: FERRITIN 957 ng/mL (10-291)
[2020-08-03 09:03] LABS: VITAMIN B12 SERUM 505 pg/mL (211-911)
[2020-08-03] MEDS ORDERED: SENN-170 MT (12:22)
[2020-08-03] MEDS ORDERED: TOPUD PO (12:22)
[2020-08-03] MEDS ORDERED: MOM PO (12:22)
[2020-08-03] MEDS ORDERED: DOCU-150 PO (12:22)
[2020-08-03] MEDS ORDERED: METO5TAB86 MT (12:22)
[2020-08-03] MEDS: AZITHROMYCIN 500 MG TABLET PO SCH (12:49)
[2020-08-03] MEDS: HYDROCODONE/ACETAMINOPHEN 10/325MG TABLET PO PRN (12:53)
[2020-08-03] MEDS: CEFTRIAXONE 1,000 MG in DEXTROSE 5% WATER 50 ML IV SCH (14:07)
[2020-08-03] MEDS: HYDRALAZINE HCL 25MG TABLET PO SCH ×2 (14:08→22:00)
[2020-08-03] MEDS: CLONIDINE 0.3MG TABLET PO SCH ×2 (14:08→22:00)
[2020-08-03] MEDS ORDERED: TRAMADOL 50MG TABLET PO PRN (16:15)
[2020-08-03] MEDS ORDERED: HYDROCODONE/ACETAMINOPHEN 5/325MG TABLET PO PRN (16:15)
[2020-08-03] MEDS ORDERED: NIFEDIPINE XL 60MG TAB PO SCH (21:00)
[2020-08-03] MEDS ORDERED: HYDROCODONE/ACETAMINOPHEN 10/325MG TABLET PO PRN (21:30)
[2020-08-04] VITALS (7 sets, daily range): BP systolic 143–198; BP diastolic 50–79
[2020-08-04] MEDS: METOCLOPRAMIDE HCL 10MG/2ML VIAL IV SCH ×4 (00:32→18:14)
[2020-08-04] MEDS: BLOOD SUGAR DIAGNOSTIC STRIP TEST SCH ×3 (06:28→17:54)
[2020-08-04] MEDS: CLONIDINE 0.3MG TABLET PO SCH ×2 (06:36→13:01)
[2020-08-04] MEDS: HYDRALAZINE HCL 25MG TABLET PO SCH ×2 (06:37→13:02)
[2020-08-04] MEDS: INSULIN LISPRO 100 UNITS/ML SUBCUT SCH ×3 (06:46→18:13)
[2020-08-04 07:46] LABS: BASOPHILS % 1.2 % (0.0-2.0); EOSINOPHILS % 4.3 % (0.0-5.0); HEMATOCRIT. 31.6 % (36.0-48.0); HEMOGLOBIN. 10.1 g/dL (12.0-16.0); LYMPHOCYTES % 20.3 % (20.0-50.0); MEAN CORPUSCULAR HEMOGLOBIN 27.3 pg (28.0-32.0); MEAN CORPUSCULAR VOLUME 85.6 fL (81.0-99.0); MEAN PLATELET VOLUME 8.6 fl (7.4-10.4); MONOCYTES % 11.6 % (2.0-8.0); NEUTROPHILS % 62.6 % (40.0-76.0); PLATELET 248 x1000/uL (130-400); RED BLOOD CELL COUNT 3.69 mill/uL (4.2-5.4); RED CELL DISTRIBUTION WIDTH 18.6 % (11.6-14.6)
[2020-08-04 07:52] LABS: CHLORIDE 106 mEq/L (98-107)
[2020-08-04] MEDS ORDERED: NIFEDIPINE XL 60MG TAB PO SCH (09:00)
[2020-08-04] MEDS: PANTOPRAZOLE SODIUM 40 MG/VIAL IV SCH (10:08)
[2020-08-04] MEDS: ATORVASTATIN CALCIUM 40MG TABLET PO SCH (10:09)
[2020-08-04] MEDS: AZITHROMYCIN 500 MG TABLET PO SCH (10:09)
[2020-08-04] MEDS: HEPARIN 5000 UNITS/ML VIAL SUBCUT SCH (10:10)
[2020-08-04] MEDS ORDERED: NIFE-32 MT (12:46)
[2020-08-04] MEDS ORDERED: TRAM50TA3 PO (12:46)
[2020-08-04] MEDS ORDERED: SODIUM POLYSTYRENE SULFONATE 15 G/60 ML BOT PO NR (13:00)
[2020-08-04] MEDS: CEFTRIAXONE 1,000 MG in DEXTROSE 5% WATER 50 ML IV SCH (13:01)
[2020-08-04] MEDS: LABETALOL 5MG/ML SYR 20 MG/4 ML SYRINGE IV PRN (18:30)
[2020-08-04] MEDS ORDERED: LACTULOSE 20G/30ML UDC PO NR (19:45)
== END 2020-08-04 20:55 | disposition home or self-care (01) | DRG 48 ==
LOC: ER 06:46 → 8WST 08:46 → ENRESERV 18:32
PROVIDERS: ADMIT Internal Medicine; ATTEND Internal Medicine
PROC: 5A1D70Z Performance of Urinary Filtration, Intermittent, Less than 6 Hours Per Day (ICD-10-PCS; 2020-08-01)
PROC: 5A1D70Z Performance of Urinary Filtration, Intermittent, Less than 6 Hours Per Day (ICD-10-PCS; principal; 2020-08-03)
DX: E11.43 Type 2 diabetes mellitus with diabetic autonomic (poly)neuropathy (principal); N18.6 End stage renal disease; J18.9 Pneumonia, unspecified organism; I12.0 Hypertensive chronic kidney disease with stage 5 chronic kidney disease or end stage renal disease; K31.84 Gastroparesis; I16.1 Hypertensive emergency; E87.1 Hypo-osmolality and hyponatremia; E11.65 Type 2 diabetes mellitus with hyperglycemia; E11.22 Type 2 diabetes mellitus with diabetic chronic kidney disease; D50.9 Iron deficiency anemia, unspecified; K52.9 Noninfective gastroenteritis and colitis, unspecified; D64.9 Anemia, unspecified; D70.9 Neutropenia, unspecified; E11.649 Type 2 diabetes mellitus with hypoglycemia without coma; E78.5 Hyperlipidemia, unspecified; E87.5 Hyperkalemia; I34.0 Nonrheumatic mitral (valve) insufficiency; Z85.528 Personal history of other malignant neoplasm of kidney; Z99.2 Dependence on renal dialysis; Z79.899 Other long term (current) drug therapy; Z79.4 Long term (current) use of insulin; Z87.891 Personal history of nicotine dependence; R60.1 Generalized edema
CPT/HCPCS: 36415; 71045; 74176; 80053; 80305; 82270; 82607; 82728; 82962; 83036; 83540; 83550; 83735; 84132; 84439; 84443; 84484; 84703; 85025; 93005; 93306; 97162; 99285; C9113; J0696; J1644; J1815; J2270; J2405; J2765; J3490; J7030; J7060

== ENCOUNTER 2020-09-16 18:04 | Inpatient (IN) | payer MEDICAID ==
[~2020-09-16] VITALS: Ht 152.4 cm; Wt 65.8 kg
[~2020-09-16 18:04] MED LIST changes: +DOCU-150 PO; -HYDR-4009 MT; -LANTUSUD SUBCUT; +MOM PO; +SENN-170 MT; +TOPUD PO; +TRAM50TA3 PO
[2020-09-16] MEDS ORDERED: DICYCLOMINE 10 MG/5 ML ORAL SYR PO STA (18:27)
[2020-09-16] MEDS ORDERED: MAGNESIUM/ALUMINUM HYDROXIDE/SIMETHICONE 30ML UDC PO STA (18:27)
[2020-09-16] MEDS ORDERED: VISCOUS LIDOCAINE 2% 15 ML UDC PO STA (18:27)
[2020-09-16 19:25] LABS: MEAN PLATELET VOLUME 9.4 fl (7.4-10.4); PLATELET 388 x1000/uL (130-400); RED BLOOD CELL COUNT 5.18 mill/uL (4.2-5.4); RED CELL DISTRIBUTION WIDTH 17.2 % (11.6-14.6)
[2020-09-16 19:30] LABS: CHLORIDE 91 mEq/L (98-107)
[2020-09-16 19:32] LABS: INR 0.9
[2020-09-16] MEDS ORDERED: LORAZEPAM 1MG TABLET PO ONE (20:15)
[2020-09-16] MEDS ORDERED: ONDANSETRON 4MG ODT PO ONE (20:15)
[2020-09-16] MEDS ORDERED: ONDANSETRON HCL 4MG/2ML INJ IV STA (21:40)
[2020-09-16] MEDS ORDERED: MORPHINE SULFATE 4 MG/ML CPJ (NOT FOR IM USE) IV STA (21:40)
[2020-09-16 21:44] LABS: PLATELET ESTIMATE NORMAL
[2020-09-16] MEDS ORDERED: HYDRALAZINE HCL 100MG TABLET PO ONE (22:30)
[2020-09-17] MEDS ORDERED: ONDANSETRON HCL 4MG/2ML INJ IV PRN (01:30)
[2020-09-17] MEDS ORDERED: METOCLOPRAMIDE HCL 10MG/2ML VIAL IV PRN (01:30)
[2020-09-17] MEDS ORDERED: DOCUSATE SODIUM 100MG CAPSULE PO PRN (01:30)
[2020-09-17] MEDS ORDERED: MAGNESIUM/ALUMINUM HYDROXIDE/SIMETHICONE 30ML UDC PO PRN (01:30)
[2020-09-17] MEDS: KETOROLAC 15MG/ML VIAL IV PRN ×4 (02:28→21:41)
[2020-09-17] MEDS: ACETAMINOPHEN 325MG TABLET PO PRN ×4 (02:29→21:41)
[2020-09-17] MEDS ORDERED: MORPHINE SULFATE 4 MG/ML CPJ (NOT FOR IM USE) IV SCH (02:30)
[2020-09-17] MEDS: CLONIDINE 0.1MG TABLET PO PRN (02:40)
[2020-09-17] MEDS: AMLODIPINE 10MG TABLET PO SCH ×2 (02:52→08:54)
[2020-09-17] MEDS ORDERED: HYDRALAZINE HCL 100MG TABLET PO SCH (04:15)
[2020-09-17] MEDS ORDERED: METOPROLOL TARTRATE 25MG TABLET PO SCH (05:00)
[2020-09-17] MEDS ORDERED: LISINOPRIL 40MG TABLET PO SCH (05:00)
[2020-09-17] MEDS: LISINOPRIL 40MG TABLET PO SCH ×2 (06:54→08:54)
[2020-09-17] MEDS: METOPROLOL TARTRATE 25MG TABLET PO SCH ×3 (06:55→20:42)
[2020-09-17 08:00] VITALS: BP 166/71
[2020-09-17] MEDS: SUCRALFATE 1 G/10 ML UDC PO SCH ×4 (08:52→20:41)
[2020-09-17] MEDS: PANTOPRAZOLE SODIUM 40 MG/VIAL IV SCH (08:52)
[2020-09-17] MEDS: ENOXAPARIN 30MG/0.3ML SYR SUBCUT SCH (08:53)
[2020-09-17] MEDS ORDERED: TRAMADOL 50MG TABLET PO PRN (09:15)
[2020-09-17 12:00] VITALS: BP 154/60
[2020-09-17] MEDS ORDERED: DEXTROSE 50% WATER 50ML SYRINGE IV PRN (12:15)
[2020-09-17] MEDS: BLOOD SUGAR DIAGNOSTIC STRIP TEST SCH ×3 (12:43→20:49)
[2020-09-17] MEDS: HYDRALAZINE HCL 25MG TABLET PO SCH ×2 (13:14→21:28)
[2020-09-17] MEDS: INSULIN LISPRO 100 UNITS/ML SUBCUT SCH ×3 (13:14→20:58)
[2020-09-17] MEDS: CLONIDINE 0.3MG TABLET PO SCH ×2 (13:14→21:27)
[2020-09-17 16:00] VITALS: BP 124/48
[2020-09-17 20:00] VITALS: BP 169/71
[2020-09-18] VITALS: BP 106/44
[2020-09-18 04:00] VITALS: BP 161/74
[2020-09-18] MEDS: CLONIDINE 0.3MG TABLET PO SCH ×3 (05:47→22:31)
[2020-09-18] MEDS: HYDRALAZINE HCL 25MG TABLET PO SCH ×3 (05:48→22:31)
[2020-09-18 06:29] LABS: HEMATOCRIT. 43.7 % (36.0-48.0); MEAN CORPUSCULAR HEMOGLOBIN 27.7 pg (28.0-32.0); MEAN CORPUSCULAR VOLUME 86.1 fL (81.0-99.0); MEAN PLATELET VOLUME 10.4 fl (7.4-10.4); PLATELET 277 x1000/uL (130-400); RED BLOOD CELL COUNT 5.07 mill/uL (4.2-5.4); RED CELL DISTRIBUTION WIDTH 17.3 % (11.6-14.6)
[2020-09-18] MEDS: SUCRALFATE 1 G/10 ML UDC PO SCH ×4 (06:47→21:44)
[2020-09-18] MEDS: BLOOD SUGAR DIAGNOSTIC STRIP TEST SCH ×4 (06:58→21:45)
[2020-09-18 08:00] VITALS: BP 106/42
[2020-09-18 08:59] LABS: PLATELET ESTIMATE NORMAL
[2020-09-18] MEDS: METOPROLOL TARTRATE 25MG TABLET PO SCH ×2 (09:00→21:45)
[2020-09-18] MEDS: AMLODIPINE 10MG TABLET PO SCH (09:00)
[2020-09-18] MEDS: LISINOPRIL 40MG TABLET PO SCH (09:00)
[2020-09-18] MEDS: PANTOPRAZOLE SODIUM 40 MG/VIAL IV SCH ×2 (09:27→10:52)
[2020-09-18] MEDS: ENOXAPARIN 30MG/0.3ML SYR SUBCUT SCH (09:28)
[2020-09-18] MEDS: INSULIN LISPRO 100 UNITS/ML SUBCUT SCH ×4 (09:30→21:47)
[2020-09-18] MEDS: KETOROLAC 15MG/ML VIAL IV PRN ×3 (11:02→23:50)
[2020-09-18 12:00] VITALS: BP 100/44
[2020-09-18 16:00] VITALS: BP 134/53
[2020-09-18 16:02] LABS: CHLORIDE 98 mEq/L (98-107)
[2020-09-18] MEDS ORDERED: SODIUM POLYSTYRENE SULFONATE 15 G/60 ML BOT PO NR (18:30)
[2020-09-18 20:00] VITALS: BP 125/59
[2020-09-18] MEDS: ACETAMINOPHEN 325MG TABLET PO PRN (23:49)
[2020-09-19] VITALS: BP 152/63
[2020-09-19 04:00] VITALS: BP 167/65
[2020-09-19] MEDS: HYDRALAZINE HCL 25MG TABLET PO SCH ×2 (05:34→13:59)
[2020-09-19] MEDS: CLONIDINE 0.3MG TABLET PO SCH ×3 (05:35→22:00)
[2020-09-19] MEDS: BLOOD SUGAR DIAGNOSTIC STRIP TEST SCH ×4 (06:12→21:00)
[2020-09-19] MEDS: SUCRALFATE 1 G/10 ML UDC PO SCH ×4 (06:13→23:08)
[2020-09-19 06:26] LABS: BASOPHILS % 1.2 % (0.0-2.0); EOSINOPHILS % 2.2 % (0.0-5.0); HEMATOCRIT. 36.5 % (36.0-48.0); MEAN CORPUSCULAR HEMOGLOBIN 27.4 pg (28.0-32.0); MEAN CORPUSCULAR VOLUME 83.6 fL (81.0-99.0); MEAN PLATELET VOLUME 9.5 fl (7.4-10.4); MONOCYTES % 10.2 % (2.0-8.0); NEUTROPHILS % 65.4 % (40.0-76.0); PLATELET 250 x1000/uL (130-400); RED BLOOD CELL COUNT 4.37 mill/uL (4.2-5.4)
[2020-09-19] MEDS: INSULIN LISPRO 100 UNITS/ML SUBCUT SCH ×4 (07:40→23:13)
[2020-09-19 08:00] VITALS: BP 153/56
[2020-09-19] MEDS: AMLODIPINE 10MG TABLET PO SCH (08:35)
[2020-09-19] MEDS: LISINOPRIL 40MG TABLET PO SCH (08:35)
[2020-09-19] MEDS: METOPROLOL TARTRATE 25MG TABLET PO SCH ×2 (08:35→23:12)
[2020-09-19] MEDS: ENOXAPARIN 30MG/0.3ML SYR SUBCUT SCH (08:35)
[2020-09-19 12:00] VITALS: BP 145/55
[2020-09-19 16:00] VITALS: BP 104/61
[2020-09-19] MEDS: FAMOTIDINE 20MG TABLET PO SCH (17:41)
[2020-09-19 20:00] VITALS: BP 169/73
[2020-09-19] MEDS: KETOROLAC 15MG/ML VIAL IV PRN (22:40)
[2020-09-19] MEDS: CLONIDINE 0.1MG TABLET PO PRN (23:12)
[2020-09-20] VITALS: BP 150/55
[2020-09-20 04:00] VITALS: BP 206/67
[2020-09-20] MEDS: HYDRALAZINE HCL 25MG TABLET PO SCH ×2 (04:20→06:00)
[2020-09-20] MEDS: CLONIDINE 0.1MG TABLET PO PRN (05:06)
[2020-09-20] MEDS: KETOROLAC 15MG/ML VIAL IV PRN (05:07)
[2020-09-20] MEDS: BLOOD SUGAR DIAGNOSTIC STRIP TEST SCH (06:28)
[2020-09-20] MEDS: INSULIN LISPRO 100 UNITS/ML SUBCUT SCH (06:39)
[2020-09-20] MEDS: SUCRALFATE 1 G/10 ML UDC PO SCH (06:39)
[2020-09-20] MEDS: CLONIDINE 0.3MG TABLET PO SCH ×2 (06:40→09:34)
[2020-09-20 07:29] LABS: BASOPHILS % 1.2 % (0.0-2.0); EOSINOPHILS % 2.4 % (0.0-5.0); HEMATOCRIT. 39.5 % (36.0-48.0); HEMOGLOBIN. 12.9 g/dL (12.0-16.0); LYMPHOCYTES % 19.1 % (20.0-50.0); MEAN CORPUSCULAR HEMOGLOBIN 27.4 pg (28.0-32.0); MEAN CORPUSCULAR VOLUME 84.2 fL (81.0-99.0); MEAN PLATELET VOLUME 9.5 fl (7.4-10.4); MONOCYTES % 7.4 % (2.0-8.0); NEUTROPHILS % 69.9 % (40.0-76.0); PLATELET 230 x1000/uL (130-400); RED BLOOD CELL COUNT 4.69 mill/uL (4.2-5.4); RED CELL DISTRIBUTION WIDTH 16.8 % (11.6-14.6)
[2020-09-20 08:00] VITALS: BP 165/67
[2020-09-20] MEDS: ENOXAPARIN 30MG/0.3ML SYR SUBCUT SCH (08:35)
[2020-09-20] MEDS: METOPROLOL TARTRATE 25MG TABLET PO SCH (08:36)
[2020-09-20] MEDS: FAMOTIDINE 20MG TABLET PO SCH (08:36)
[2020-09-20] MEDS: AMLODIPINE 10MG TABLET PO SCH (08:36)
[2020-09-20] MEDS: LISINOPRIL 40MG TABLET PO SCH (08:36)
[2020-09-20 09:27] VITALS: BP 165/67
== END 2020-09-20 10:45 | disposition home or self-care (01) | DRG 48 ==
LOC: ER 18:04 → 8WST 23:07 → EDBEDREQ 23:08 → EDBEDREQTM 23:08 → ENRESERV 09-17 04:52
PROVIDERS: ADMIT Hospitalist; ATTEND Hospitalist
PROC: 5A1D70Z Performance of Urinary Filtration, Intermittent, Less than 6 Hours Per Day (ICD-10-PCS; principal; 2020-09-17)
PROC: 5A1D70Z Performance of Urinary Filtration, Intermittent, Less than 6 Hours Per Day (ICD-10-PCS; 2020-09-19)
DX: E11.43 Type 2 diabetes mellitus with diabetic autonomic (poly)neuropathy (principal); I13.2 Hypertensive heart and chronic kidney disease with heart failure and with stage 5 chronic kidney disease, or end stage renal disease; K31.84 Gastroparesis; E86.0 Dehydration; N18.6 End stage renal disease; E11.22 Type 2 diabetes mellitus with diabetic chronic kidney disease; E11.65 Type 2 diabetes mellitus with hyperglycemia; I50.33 Acute on chronic diastolic (congestive) heart failure; Z99.2 Dependence on renal dialysis; Z82.49 Family history of ischemic heart disease and other diseases of the circulatory system; Z79.899 Other long term (current) drug therapy; Z79.4 Long term (current) use of insulin
CPT/HCPCS: 36415; 71045; 74176; 80048; 80053; 82962; 85025; 93005; 99285; C1893; C9113; J1650; J1815; J1885; J2270; J2405; J2765; Q0162

== ENCOUNTER 2020-11-29 10:13 | Emergency (ER) | payer MEDICAID ==
[~2020-11-29] VITALS: Ht 154.9 cm; Wt 59.0 kg
[~2020-11-29 10:13] MED LIST changes: -SENN-170 MT; +SENN-257 MT
[2020-11-29] MEDS ORDERED: HYDROCODONE/ACETAMINOPHEN 5/325MG TABLET PO STA (10:24)
[2020-11-29 10:54] LABS: HEMATOCRIT. 27.1 % (36.0-48.0); MEAN CORPUSCULAR HEMOGLOBIN 27.8 pg (28.0-32.0); MEAN CORPUSCULAR VOLUME 83.8 fL (81.0-99.0); MEAN PLATELET VOLUME 9.1 fl (7.4-10.4); PLATELET 331 x1000/uL (130-400); RED BLOOD CELL COUNT 3.24 mill/uL (4.2-5.4); RED CELL DISTRIBUTION WIDTH 16.7 % (11.6-14.6)
[2020-11-29 11:01] LABS: CHLORIDE 94 mEq/L (98-107)
[2020-11-29 11:04] LABS: INR 0.9; PROTHROMBIN TIME 9.8 sec (9.6-11.0)
[2020-11-29 11:57] LABS: PLATELET ESTIMATE NORMAL
[2020-11-29] MEDS ORDERED: HYDR-4346 MT (13:48)
[2020-11-29] MEDS ORDERED: CYCL5TAB MT (13:51)
[2020-11-29] MEDS ORDERED: HYDROCODONE/ACETAMINOPHEN 5/325MG TABLET PO ONE (14:00)
[2020-11-29] MEDS ORDERED: POLYETHYLENE GLYCOL 3350 (17GM) 1 DOSE PACK PO ONE (14:00)
[2020-11-29 19:00] VITALS: BP 192/84
== END 2020-11-29 20:00 | disposition home or self-care (01) ==
LOC: ER 10:13
DX: M25.551 Pain in right hip (principal); I10 Essential (primary) hypertension; E11.9 Type 2 diabetes mellitus without complications; F12.10 Cannabis abuse, uncomplicated; Z98.890 Other specified postprocedural states; Z85.9 Personal history of malignant neoplasm, unspecified; Z79.899 Other long term (current) drug therapy
CPT/HCPCS: 36415; 73502; 74176; 80053; 82962; 83690; 85025; 85610; 93005; 99285; Z7610

== ENCOUNTER 2020-12-16 10:04 | Inpatient (IN) | payer MEDICAID ==
[~2020-12-16] VITALS: Ht 154.9 cm; Wt 54.0 kg
[~2020-12-16 10:04] MED LIST changes: +CYCL5TAB MT
[2020-12-16] MEDS ORDERED: ONDANSETRON HCL 4MG/2ML INJ IV STA (10:45)
[2020-12-16] MEDS ORDERED: MORPHINE SULFATE 4 MG/ML CPJ (NOT FOR IM USE) IV STA (10:45)
[2020-12-16] MEDS ORDERED: NITROGLYCERIN OINT 1GM/INCH UDPKT TD ONE (10:45)
[2020-12-16] MEDS ORDERED: LABETALOL HCL 20MG/4ML CARPUJECT IV ONE (10:45)
[2020-12-16] MEDS ORDERED: ASPIRIN 81MG TABLET PO ONE (10:45)
[2020-12-16] MEDS ORDERED: LIDOCAINE HCL 1% 20ML VIAL (Pyxis) INJ ONE (11:30)
[2020-12-16] MEDS ORDERED: SODIUM BICARBONATE 4% (2.4MEQ) 5ML VIAL IV ONE (11:30)
[2020-12-16] MEDS ORDERED: LORAZEPAM 1MG TABLET PO ONE (11:45)
[2020-12-16] MEDS ORDERED: CLONIDINE 0.1MG TABLET PO ONE (11:45)
[2020-12-16 12:28] LABS: BASOPHILS % 0.5 % (0.0-2.0); EOSINOPHILS % 0.5 % (0.0-5.0); HEMATOCRIT. 24.8 % (36.0-48.0); LYMPHOCYTES % 12.4 % (20.0-50.0); MEAN CORPUSCULAR HEMOGLOBIN 27.9 pg (28.0-32.0); MEAN CORPUSCULAR VOLUME 86.7 fL (81.0-99.0); MONOCYTES % 5.5 % (2.0-8.0); NEUTROPHILS % 81.1 % (40.0-76.0); PLATELET 551 x1000/uL (130-400); RED BLOOD CELL COUNT 2.86 mill/uL (4.2-5.4); RED CELL DISTRIBUTION WIDTH 17.2 % (11.6-14.6)
[2020-12-16] MEDS ORDERED: LABETALOL 5MG/ML SYR 20 MG/4 ML SYRINGE IV NR (12:30)
[2020-12-16] MEDS ORDERED: NITROGLYCERIN 50MG PREMIX 250 ML IV ONE (12:30)
[2020-12-16] MEDS ORDERED: ONDANSETRON HCL 4MG/2ML INJ IV ONE (12:30)
[2020-12-16] MEDS ORDERED: AZITHROMYCIN 500 MG in DEXT 5% WATER 250 ML IV STA (12:37)
[2020-12-16 12:39] LABS: CHLORIDE 99 mEq/L (98-107)
[2020-12-16 12:44] LABS: ETHANOL BLOOD < 10 mg/dL
[2020-12-16] MEDS ORDERED: CEFTRIAXONE 1 G PREMIX 50 ML IV ONE (12:45)
[2020-12-16] MEDS ORDERED: CEFTRIAXONE 1 G PREMIX 50 ML IV SCH (13:30)
[2020-12-16 14:03] LABS: BG BASE EXCESS -1.7 mmol/L (-2.0-2.0); BG CARBOXYHEMOGLOBIN 0.3 % (0.5-1.5); BG DEOXYHEMOGLOBIN 2.3 % (0.0-5.0); BG FRACTION INSPIRED OXYGEN 60; BG HCO3 ACT 24.4 mmol/L (22.0-26.0); BG METHEMOGLOBIN 0.1 % (0.0-1.5); BG OXYGEN SATURATION 97.7 % (92.0-98.5); BG OXYHEMOGLOBIN 97.3 % (94.0-97.0); BG PCO2 48.6 mmHg (35.0-45.0); BG PH 7.319 (7.350-7.450); BG PO2 117.4 mmHg (75.0-100.0); BG SAMPLE SITE RIGHT BRACHIAL; BG TOTAL RESPIRATORY RATE 27 b/min; BG VENT MODE MASK - BIPAP
[2020-12-16] MEDS: BLOOD SUGAR DIAGNOSTIC STRIP TEST SCH ×2 (16:50→21:59)
[2020-12-16] MEDS: INSULIN LISPRO 100 UNITS/ML SUBCUT SCH ×2 (17:47→21:00)
[2020-12-16] MEDS: MORPHINE SULFATE 4 MG/ML CPJ (NOT FOR IM USE) IV PRN (20:59)
[2020-12-16] MEDS: METOPROLOL TARTRATE 25MG TABLET PO SCH (21:00)
[2020-12-16] MEDS: ATORVASTATIN CALCIUM 10MG TABLET PO SCH (21:59)
[2020-12-16] MEDS: INSULIN GLARGINE UD 100 UNITS/ML SYR SUBCUT SCH (22:00)
[2020-12-16] MEDS: DEXTROSE 50% WATER 50ML SYRINGE IV PRN (22:07)
[2020-12-17] MEDS: MORPHINE SULFATE 4 MG/ML CPJ (NOT FOR IM USE) IV PRN ×5 (02:25→23:27)
[2020-12-17 04:52] LABS: CHLORIDE 102 mEq/L (98-107)
[2020-12-17 04:59] LABS: LDL CHOLESTEROL 77 mg/dL (5-100)
[2020-12-17 05:00] LABS: HDL CHOLESTEROL 57 mg/dL (40-59)
[2020-12-17 08:05] LABS: MEAN CORPUSCULAR HEMOGLOBIN 27.7 pg (28.0-32.0); MEAN CORPUSCULAR VOLUME 85.3 fL (81.0-99.0); MEAN PLATELET VOLUME 9.3 fl (7.4-10.4); PLATELET 292 x1000/uL (130-400); RED BLOOD CELL COUNT 2.19 mill/uL (4.2-5.4); RED CELL DISTRIBUTION WIDTH 17.5 % (11.6-14.6)
[2020-12-17 08:11] LABS: HEMATOCRIT. 18.7 % (36.0-48.0); HEMOGLOBIN. 6.1 g/dL (12.0-16.0)
[2020-12-17] MEDS: INSULIN LISPRO 100 UNITS/ML SUBCUT SCH ×4 (08:20→21:00)
[2020-12-17] MEDS: METOPROLOL TARTRATE 25MG TABLET PO SCH ×2 (09:05→21:07)
[2020-12-17] MEDS: BLOOD SUGAR DIAGNOSTIC STRIP TEST SCH ×4 (09:05→21:27)
[2020-12-17] MEDS: ASPIRIN 81MG TABLET PO SCH (09:05)
[2020-12-17] MEDS: INSULIN GLARGINE UD 100 UNITS/ML SYR SUBCUT SCH (10:08)
[2020-12-17] MEDS: ONDANSETRON HCL 4MG/2ML INJ IV PRN (10:09)
[2020-12-17 11:14] LABS: PLATELET ESTIMATE NORMAL
[2020-12-17 12:00] VITALS: BP_SYST 150; BP_SYST 156; BP_DIAS 59; BP_DIAS 67
[2020-12-17] MEDS ORDERED: AZITHROMYCIN 500 MG in DEXT 5% WATER 250 ML IV SCH (13:30)
[2020-12-17] MEDS ORDERED: CEFTRIAXONE 1,000 MG in DEXTROSE 5% WATER 50 ML IV SCH (14:00)
[2020-12-17 16:00] VITALS: BP 110/68
[2020-12-17 18:22] VITALS: BP 165/78
[2020-12-17 18:43] VITALS: BP 139/90
[2020-12-17] MEDS: ENOXAPARIN 30MG/0.3ML SYR SUBCUT SCH (18:53)
[2020-12-17] MEDS: DEXAMETHASONE 10 MG/ML VIAL IV SCH (18:54)
[2020-12-17 20:00] VITALS: BP 156/60
[2020-12-17] MEDS: ATORVASTATIN CALCIUM 10MG TABLET PO SCH (21:00)
[2020-12-17] MEDS: METOCLOPRAMIDE HCL 5MG TABLET PO SCH (21:06)
[2020-12-17] MEDS: ATORVASTATIN CALCIUM 40MG TABLET PO SCH (21:07)
[2020-12-17] MEDS ORDERED: IOHEXOL-350 100 ML BOTTLE ONE (21:58)
[2020-12-17] MEDS ORDERED: IVERMECTIN 3 MG TABLET PO NR (23:15)
[2020-12-17 23:55] LABS: HEMATOCRIT 31.3 % (36.0-48.0); HEMOGLOBIN 10.3 g/dL (12.0-16.0)
[2020-12-18] VITALS (10 sets, daily range): BP systolic 113–217; BP diastolic 41–103
[2020-12-18 00:34] LABS: PROTHROMBIN TIME 10.7 sec (9.6-11.0)
[2020-12-18] MEDS: CYCLOBENZAPRINE 10MG TABLET PO PRN ×2 (02:39→20:57)
[2020-12-18] MEDS: MORPHINE SULFATE 4 MG/ML CPJ (NOT FOR IM USE) IV PRN ×3 (03:32→15:36)
[2020-12-18 06:26] LABS: MEAN CORPUSCULAR HEMOGLOBIN 28.5 pg (28.0-32.0); MEAN CORPUSCULAR VOLUME 84.8 fL (81.0-99.0); MEAN PLATELET VOLUME 9.6 fl (7.4-10.4); PLATELET 225 x1000/uL (130-400); RED BLOOD CELL COUNT 2.39 mill/uL (4.2-5.4); RED CELL DISTRIBUTION WIDTH 16.7 % (11.6-14.6)
[2020-12-18 06:36] LABS: HEMATOCRIT. 20.3 % (36.0-48.0); HEMOGLOBIN. 6.8 g/dL (12.0-16.0)
[2020-12-18] MEDS: BLOOD SUGAR DIAGNOSTIC STRIP TEST SCH ×4 (07:40→20:56)
[2020-12-18] MEDS: INSULIN LISPRO 100 UNITS/ML SUBCUT SCH ×4 (09:56→20:56)
[2020-12-18] MEDS: ASPIRIN 81MG TABLET PO SCH (09:57)
[2020-12-18] MEDS: INSULIN GLARGINE UD 100 UNITS/ML SYR SUBCUT SCH (09:57)
[2020-12-18] MEDS: METOPROLOL TARTRATE 25MG TABLET PO SCH ×2 (09:59→20:57)
[2020-12-18] MEDS: DEXAMETHASONE 10 MG/ML VIAL IV SCH (09:59)
[2020-12-18] MEDS: METOCLOPRAMIDE HCL 5MG TABLET PO SCH ×4 (10:00→20:57)
[2020-12-18 14:22] LABS: HAPTOGLOBIN 237 mg/dL (30-200)
[2020-12-18] MEDS: AZITHROMYCIN 500 MG in DEXT 5% WATER 250 ML IV SCH (15:14)
[2020-12-18] MEDS: CEFTRIAXONE 1,000 MG in DEXTROSE 5% WATER 50 ML IV SCH (15:14)
[2020-12-18] MEDS: ACETAMINOPHEN 325MG TABLET PO PRN (15:35)
[2020-12-18 17:09] LABS: BG CARBOXYHEMOGLOBIN 0.3 % (0.5-1.5); BG DEOXYHEMOGLOBIN 10.7 % (0.0-5.0); BG HCO3 ACT 24.5 mmol/L (22.0-26.0); BG METHEMOGLOBIN 0.3 % (0.0-1.5); BG OXYGEN SATURATION 89.2 % (92.0-98.5); BG OXYHEMOGLOBIN 88.7 % (94.0-97.0); BG PCO2 39.4 mmHg (35.0-45.0); BG PH 7.412 (7.350-7.450); BG PO2 57.2 mmHg (75.0-100.0); BG SAMPLE SITE RIGHT BRACHIAL; BG TOTAL HEMOGLOBIN 9.2 g/dL (12.0-18.0); BG VENT MODE NASAL CANNULA
[2020-12-18] MEDS: ENOXAPARIN 30MG/0.3ML SYR SUBCUT SCH (18:30)
[2020-12-18] MEDS: ATORVASTATIN CALCIUM 40MG TABLET PO SCH (20:57)
[2020-12-19] VITALS (7 sets, daily range): BP systolic 96–163; BP diastolic 32–70
[2020-12-19] MEDS: MORPHINE SULFATE 4 MG/ML CPJ (NOT FOR IM USE) IV PRN ×4 (00:27→21:44)
[2020-12-19 01:13] LABS: HEMOGLOBIN 9.8 g/dL (12.0-16.0)
[2020-12-19 02:02] LABS: PLATELET ESTIMATE NORMAL
[2020-12-19] MEDS: ACETAMINOPHEN 325MG TABLET PO PRN (04:43)
[2020-12-19 06:50] LABS: HEMATOCRIT. 26.6 % (36.0-48.0); HEMOGLOBIN. 8.8 g/dL (12.0-16.0); MEAN CORPUSCULAR HEMOGLOBIN 28.3 pg (28.0-32.0); MEAN CORPUSCULAR VOLUME 85.3 fL (81.0-99.0); MEAN PLATELET VOLUME 10.1 fl (7.4-10.4); PLATELET 235 x1000/uL (130-400); RED BLOOD CELL COUNT 3.12 mill/uL (4.2-5.4); RED CELL DISTRIBUTION WIDTH 16.1 % (11.6-14.6)
[2020-12-19] MEDS: BLOOD SUGAR DIAGNOSTIC STRIP TEST SCH ×4 (07:40→21:21)
[2020-12-19] MEDS: INSULIN LISPRO 100 UNITS/ML SUBCUT SCH ×4 (08:10→21:40)
[2020-12-19] MEDS: ASPIRIN 81MG TABLET PO SCH (08:27)
[2020-12-19] MEDS: METOCLOPRAMIDE HCL 5MG TABLET PO SCH ×4 (08:28→21:15)
[2020-12-19] MEDS: DEXAMETHASONE 10 MG/ML VIAL IV SCH (08:28)
[2020-12-19] MEDS: METOPROLOL TARTRATE 25MG TABLET PO SCH ×2 (09:00→21:21)
[2020-12-19] MEDS: BENZONATATE 100MG CAPSULE PO SCH ×3 (10:01→21:14)
[2020-12-19] MEDS: INSULIN GLARGINE UD 100 UNITS/ML SYR SUBCUT SCH (10:02)
[2020-12-19] MEDS: LORAZEPAM 0.5MG TABLET PO PRN (13:07)
[2020-12-19 15:40] LABS: PLATELET ESTIMATE NORMAL
[2020-12-19] MEDS: AZITHROMYCIN 500 MG in DEXT 5% WATER 250 ML IV SCH (16:02)
[2020-12-19] MEDS: ENOXAPARIN 30MG/0.3ML SYR SUBCUT SCH (18:38)
[2020-12-19] MEDS: CEFTRIAXONE 1,000 MG in DEXTROSE 5% WATER 50 ML IV SCH (18:39)
[2020-12-19] MEDS: ATORVASTATIN CALCIUM 40MG TABLET PO SCH (21:14)
[2020-12-19] MEDS ORDERED: IVERMECTIN 3 MG TABLET PO NR (23:15)
[2020-12-20] VITALS: BP 148/55
[2020-12-20] MEDS: MORPHINE SULFATE 4 MG/ML CPJ (NOT FOR IM USE) IV PRN ×4 (03:46→21:19)
[2020-12-20 04:00] VITALS: BP 170/93
[2020-12-20] MEDS: BENZONATATE 100MG CAPSULE PO SCH ×3 (05:49→20:55)
[2020-12-20 07:25] LABS: HEMATOCRIT. 27.1 % (36.0-48.0); MEAN CORPUSCULAR HEMOGLOBIN 28.6 pg (28.0-32.0); MEAN CORPUSCULAR VOLUME 85.7 fL (81.0-99.0); MEAN PLATELET VOLUME 10.3 fl (7.4-10.4); PLATELET 240 x1000/uL (130-400); RED BLOOD CELL COUNT 3.16 mill/uL (4.2-5.4); RED CELL DISTRIBUTION WIDTH 16.1 % (11.6-14.6)
[2020-12-20] MEDS: BLOOD SUGAR DIAGNOSTIC STRIP TEST SCH ×4 (07:40→21:23)
[2020-12-20 07:59] LABS: FOLIC ACID (FOLATE) SERUM 7.1 ng/mL (>5.38)
[2020-12-20] MEDS: INSULIN LISPRO 100 UNITS/ML SUBCUT SCH ×4 (08:10→21:31)
[2020-12-20] MEDS: INSULIN GLARGINE UD 100 UNITS/ML SYR SUBCUT SCH (09:24)
[2020-12-20] MEDS: METOCLOPRAMIDE HCL 5MG TABLET PO SCH ×4 (09:55→21:20)
[2020-12-20] MEDS: ASPIRIN 81MG TABLET PO SCH (09:55)
[2020-12-20] MEDS: DEXAMETHASONE 10 MG/ML VIAL IV SCH (09:55)
[2020-12-20] MEDS: METOPROLOL TARTRATE 25MG TABLET PO SCH ×2 (10:12→20:56)
[2020-12-20 12:00] VITALS: BP 145/64
[2020-12-20 16:00] VITALS: BP 179/68
[2020-12-20] MEDS: CEFTRIAXONE 1,000 MG in DEXTROSE 5% WATER 50 ML IV SCH (16:29)
[2020-12-20] MEDS: AZITHROMYCIN 500 MG in DEXT 5% WATER 250 ML IV SCH (16:39)
[2020-12-20] MEDS: ENOXAPARIN 30MG/0.3ML SYR SUBCUT SCH (16:54)
[2020-12-20 17:17] LABS: PLATELET ESTIMATE NORMAL
[2020-12-20] MEDS: ATORVASTATIN CALCIUM 40MG TABLET PO SCH (20:55)
[2020-12-21] VITALS (8 sets, daily range): BP systolic 154–199; BP diastolic 53–93
[2020-12-21] MEDS: MORPHINE SULFATE 4 MG/ML CPJ (NOT FOR IM USE) IV PRN ×3 (01:42→10:34)
[2020-12-21] MEDS: CLONIDINE 0.1MG TABLET PO PRN ×2 (03:51→12:23)
[2020-12-21] MEDS: BLOOD SUGAR DIAGNOSTIC STRIP TEST SCH ×4 (06:18→21:00)
[2020-12-21] MEDS: BENZONATATE 100MG CAPSULE PO SCH ×3 (06:18→22:18)
[2020-12-21] MEDS: INSULIN LISPRO 100 UNITS/ML SUBCUT SCH ×4 (07:35→22:21)
[2020-12-21] MEDS: ASPIRIN 81MG TABLET PO SCH (10:00)
[2020-12-21] MEDS: METOCLOPRAMIDE HCL 5MG TABLET PO SCH ×4 (10:00→22:18)
[2020-12-21] MEDS: METOPROLOL TARTRATE 25MG TABLET PO SCH ×2 (10:01→22:19)
[2020-12-21] MEDS: HYDRALAZINE HCL 25MG TABLET PO SCH ×2 (10:01→17:40)
[2020-12-21] MEDS: DEXAMETHASONE 10 MG/ML VIAL IV SCH (10:01)
[2020-12-21] MEDS: INSULIN GLARGINE UD 100 UNITS/ML SYR SUBCUT SCH (10:03)
[2020-12-21] MEDS: CYCLOBENZAPRINE 10MG TABLET PO PRN (12:23)
[2020-12-21] MEDS: CEFTRIAXONE 1,000 MG in DEXTROSE 5% WATER 50 ML IV SCH (15:50)
[2020-12-21] MEDS: AZITHROMYCIN 500 MG TABLET PO SCH (15:50)
[2020-12-21] MEDS: HYDROMORPHONE HCL/PF 2MG/ML CPJ IV PRN ×2 (15:52→22:33)
[2020-12-21] MEDS: ENOXAPARIN 30MG/0.3ML SYR SUBCUT SCH (17:56)
[2020-12-21] MEDS: ATORVASTATIN CALCIUM 40MG TABLET PO SCH (22:18)
[2020-12-22] VITALS: BP 139/71
[2020-12-22] MEDS: CYCLOBENZAPRINE 10MG TABLET PO PRN ×2 (00:13→21:48)
[2020-12-22] MEDS: HYDRALAZINE HCL 25MG TABLET PO SCH ×2 (02:13→09:12)
[2020-12-22 04:00] VITALS: BP 154/95
[2020-12-22] MEDS: HYDROMORPHONE HCL/PF 2MG/ML CPJ IV PRN ×3 (04:32→18:15)
[2020-12-22] MEDS: BENZONATATE 100MG CAPSULE PO SCH ×3 (05:59→21:28)
[2020-12-22] MEDS: BLOOD SUGAR DIAGNOSTIC STRIP TEST SCH ×4 (06:03→21:29)
[2020-12-22 06:32] LABS: HEMATOCRIT. 23.2 % (36.0-48.0); HEMOGLOBIN. 7.8 g/dL (12.0-16.0); MEAN CORPUSCULAR HEMOGLOBIN 28.6 pg (28.0-32.0); MEAN CORPUSCULAR VOLUME 84.6 fL (81.0-99.0); MEAN PLATELET VOLUME 10.3 fl (7.4-10.4); PLATELET 200 x1000/uL (130-400); RED BLOOD CELL COUNT 2.74 mill/uL (4.2-5.4); RED CELL DISTRIBUTION WIDTH 15.7 % (11.6-14.6)
[2020-12-22 08:00] VITALS: BP 181/60
[2020-12-22] MEDS: INSULIN LISPRO 100 UNITS/ML SUBCUT SCH ×4 (08:10→21:26)
[2020-12-22] MEDS: ASPIRIN 81MG TABLET PO SCH (09:12)
[2020-12-22] MEDS: METOCLOPRAMIDE HCL 5MG TABLET PO SCH ×4 (09:12→21:28)
[2020-12-22] MEDS: LORAZEPAM 0.5MG TABLET PO PRN ×2 (09:13→21:32)
[2020-12-22] MEDS: METOPROLOL TARTRATE 25MG TABLET PO SCH ×2 (09:13→21:28)
[2020-12-22] MEDS: INSULIN GLARGINE UD 100 UNITS/ML SYR SUBCUT SCH (10:00)
[2020-12-22] MEDS: DEXAMETHASONE 10 MG/ML VIAL IV SCH (11:13)
[2020-12-22 12:00] VITALS: BP 199/76
[2020-12-22] MEDS: CLONIDINE 0.1MG TABLET PO PRN (12:45)
[2020-12-22] MEDS: NITROGLYCERIN OINT 1GM/INCH UDPKT TD SCH ×2 (14:37→21:28)
[2020-12-22] MEDS: HYDRALAZINE HCL 50MG TABLET PO SCH ×2 (14:38→21:28)
[2020-12-22 15:01] LABS: PLATELET ESTIMATE NORMAL
[2020-12-22 16:00] VITALS: BP 184/79
[2020-12-22] MEDS: AZITHROMYCIN 500 MG TABLET PO SCH (17:03)
[2020-12-22] MEDS: ENOXAPARIN 30MG/0.3ML SYR SUBCUT SCH (18:14)
[2020-12-22 20:00] VITALS: BP 190/52
[2020-12-22] MEDS: ATORVASTATIN CALCIUM 40MG TABLET PO SCH (21:28)
[2020-12-23] VITALS: BP 183/52
[2020-12-23] MEDS: CLONIDINE 0.1MG TABLET PO PRN ×2 (00:31→06:02)
[2020-12-23] MEDS: HYDROMORPHONE HCL/PF 2MG/ML CPJ IV PRN ×3 (00:52→22:43)
[2020-12-23 04:00] VITALS: BP 170/43
[2020-12-23] MEDS: HYDRALAZINE HCL 50MG TABLET PO SCH ×3 (05:01→22:34)
[2020-12-23] MEDS: BENZONATATE 100MG CAPSULE PO SCH ×3 (05:01→22:35)
[2020-12-23] MEDS: NITROGLYCERIN OINT 1GM/INCH UDPKT TD SCH ×3 (05:01→22:34)
[2020-12-23 06:31] LABS: HEMATOCRIT. 24.9 % (36.0-48.0); HEMOGLOBIN. 8.5 g/dL (12.0-16.0); MEAN CORPUSCULAR HEMOGLOBIN 28.8 pg (28.0-32.0); MEAN CORPUSCULAR VOLUME 84.9 fL (81.0-99.0); MEAN PLATELET VOLUME 10.1 fl (7.4-10.4); PLATELET 223 x1000/uL (130-400); RED BLOOD CELL COUNT 2.94 mill/uL (4.2-5.4); RED CELL DISTRIBUTION WIDTH 15.5 % (11.6-14.6)
[2020-12-23] MEDS: BLOOD SUGAR DIAGNOSTIC STRIP TEST SCH ×4 (06:43→21:00)
[2020-12-23] MEDS: INSULIN LISPRO 100 UNITS/ML SUBCUT SCH ×4 (06:43→22:36)
[2020-12-23 08:00] VITALS: BP 177/83
[2020-12-23] MEDS: METOPROLOL TARTRATE 25MG TABLET PO SCH ×2 (08:37→22:35)
[2020-12-23] MEDS: METOCLOPRAMIDE HCL 5MG TABLET PO SCH ×4 (08:38→22:35)
[2020-12-23] MEDS: ASPIRIN 81MG TABLET PO SCH (08:38)
[2020-12-23] MEDS: DEXAMETHASONE 10 MG/ML VIAL IV SCH (08:38)
[2020-12-23] MEDS: INSULIN GLARGINE UD 100 UNITS/ML SYR SUBCUT SCH (11:10)
[2020-12-23 12:00] VITALS: BP 119/43
[2020-12-23 16:00] VITALS: BP 156/50
[2020-12-23] MEDS: ENOXAPARIN 30MG/0.3ML SYR SUBCUT SCH (18:03)
[2020-12-23 20:00] VITALS: BP 170/47
[2020-12-23] MEDS: ATORVASTATIN CALCIUM 40MG TABLET PO SCH (22:35)
[2020-12-24] VITALS: BP 161/58
[2020-12-24] MEDS: LORAZEPAM 0.5MG TABLET PO PRN (02:36)
[2020-12-24 04:00] VITALS: BP 197/62
[2020-12-24] MEDS: NITROGLYCERIN OINT 1GM/INCH UDPKT TD SCH ×3 (06:42→21:36)
[2020-12-24] MEDS: BENZONATATE 100MG CAPSULE PO SCH ×3 (06:42→21:37)
[2020-12-24] MEDS: HYDRALAZINE HCL 50MG TABLET PO SCH ×3 (06:42→21:35)
[2020-12-24] MEDS: HYDROMORPHONE HCL/PF 2MG/ML CPJ IV PRN ×2 (06:43→17:33)
[2020-12-24] MEDS: BLOOD SUGAR DIAGNOSTIC STRIP TEST SCH ×4 (07:40→21:39)
[2020-12-24 08:00] VITALS: BP 169/55
[2020-12-24] MEDS: INSULIN LISPRO 100 UNITS/ML SUBCUT SCH ×4 (08:10→21:39)
[2020-12-24] MEDS: METOCLOPRAMIDE HCL 5MG TABLET PO SCH ×4 (10:00→21:35)
[2020-12-24] MEDS: ASPIRIN 81MG TABLET PO SCH (10:01)
[2020-12-24] MEDS: METOPROLOL TARTRATE 25MG TABLET PO SCH ×2 (10:01→21:35)
[2020-12-24] MEDS: DEXAMETHASONE 10 MG/ML VIAL IV SCH (10:01)
[2020-12-24] MEDS: INSULIN GLARGINE UD 100 UNITS/ML SYR SUBCUT SCH (10:02)
[2020-12-24 10:34] LABS: HEMATOCRIT. 30.8 % (36.0-48.0); HEMOGLOBIN. 10.1 g/dL (12.0-16.0); MEAN CORPUSCULAR HEMOGLOBIN 28.1 pg (28.0-32.0); MEAN CORPUSCULAR VOLUME 85.4 fL (81.0-99.0); MEAN PLATELET VOLUME 9.9 fl (7.4-10.4); PLATELET 268 x1000/uL (130-400); RED CELL DISTRIBUTION WIDTH 15.7 % (11.6-14.6)
[2020-12-24 12:00] VITALS: BP 163/90
[2020-12-24 16:00] VITALS: BP 208/84
[2020-12-24 16:18] LABS: PLATELET ESTIMATE NORMAL
[2020-12-24] MEDS: ENOXAPARIN 30MG/0.3ML SYR SUBCUT SCH (17:31)
[2020-12-24 18:11] LABS: PLATELET ESTIMATE NORMAL
[2020-12-24 20:00] VITALS: BP 223/89
[2020-12-24] MEDS: CYCLOBENZAPRINE 10MG TABLET PO PRN (21:34)
[2020-12-24] MEDS: ATORVASTATIN CALCIUM 40MG TABLET PO SCH (21:35)
[2020-12-25] VITALS: BP 191/62
[2020-12-25] MEDS: HYDROMORPHONE HCL/PF 2MG/ML CPJ IV PRN ×4 (00:04→22:42)
[2020-12-25] MEDS: CLONIDINE 0.1MG TABLET PO PRN ×2 (00:11→13:18)
[2020-12-25 04:00] VITALS: BP 150/95
[2020-12-25] MEDS: HYDRALAZINE HCL 50MG TABLET PO SCH ×3 (06:20→20:13)
[2020-12-25] MEDS: BENZONATATE 100MG CAPSULE PO SCH ×3 (06:21→20:12)
[2020-12-25] MEDS: NITROGLYCERIN OINT 1GM/INCH UDPKT TD SCH ×3 (06:21→17:07)
[2020-12-25] MEDS: BLOOD SUGAR DIAGNOSTIC STRIP TEST SCH ×4 (06:29→21:00)
[2020-12-25 06:41] LABS: HEMATOCRIT. 27.7 % (36.0-48.0); HEMOGLOBIN. 9.3 g/dL (12.0-16.0); MEAN CORPUSCULAR HEMOGLOBIN 28.6 pg (28.0-32.0); MEAN CORPUSCULAR VOLUME 85.4 fL (81.0-99.0); MEAN PLATELET VOLUME 9.7 fl (7.4-10.4); PLATELET 292 x1000/uL (130-400); RED BLOOD CELL COUNT 3.24 mill/uL (4.2-5.4); RED CELL DISTRIBUTION WIDTH 15.4 % (11.6-14.6)
[2020-12-25 08:00] VITALS: BP 130/43
[2020-12-25] MEDS: INSULIN LISPRO 100 UNITS/ML SUBCUT SCH ×4 (08:10→22:41)
[2020-12-25] MEDS: METOCLOPRAMIDE HCL 5MG TABLET PO SCH ×4 (09:24→20:12)
[2020-12-25] MEDS: METOPROLOL TARTRATE 25MG TABLET PO SCH ×2 (09:24→20:13)
[2020-12-25] MEDS: ASPIRIN 81MG TABLET PO SCH (09:24)
[2020-12-25] MEDS: DEXAMETHASONE 10 MG/ML VIAL IV SCH (09:24)
[2020-12-25] MEDS: INSULIN GLARGINE UD 100 UNITS/ML SYR SUBCUT SCH (10:13)
[2020-12-25] MEDS: ACETAMINOPHEN 325MG TABLET PO PRN (10:17)
[2020-12-25 12:00] VITALS: BP 206/81
[2020-12-25 16:00] VITALS: BP 179/89
[2020-12-25 16:31] LABS: PLATELET ESTIMATE NORMAL
[2020-12-25] MEDS: ENOXAPARIN 30MG/0.3ML SYR SUBCUT SCH (17:30)
[2020-12-25 20:00] VITALS: BP 230/95
[2020-12-25] MEDS: ATORVASTATIN CALCIUM 40MG TABLET PO SCH (20:13)
[2020-12-26] VITALS: BP 202/77
[2020-12-26 04:00] VITALS: BP 163/100
[2020-12-26] MEDS: BENZONATATE 100MG CAPSULE PO SCH ×3 (05:29→20:53)
[2020-12-26] MEDS: HYDROMORPHONE HCL/PF 2MG/ML CPJ IV PRN ×3 (05:29→20:53)
[2020-12-26] MEDS: HYDRALAZINE HCL 50MG TABLET PO SCH ×3 (05:30→20:54)
[2020-12-26] MEDS: NITROGLYCERIN OINT 1GM/INCH UDPKT TD SCH ×5 (05:31→23:19)
[2020-12-26 06:34] LABS: HEMATOCRIT. 27.2 % (36.0-48.0); HEMOGLOBIN. 9.1 g/dL (12.0-16.0); MEAN CORPUSCULAR HEMOGLOBIN 28.4 pg (28.0-32.0); MEAN PLATELET VOLUME 9.6 fl (7.4-10.4); PLATELET 323 x1000/uL (130-400); RED CELL DISTRIBUTION WIDTH 15.6 % (11.6-14.6)
[2020-12-26 08:00] VITALS: BP 180/45
[2020-12-26] MEDS: INSULIN LISPRO 100 UNITS/ML SUBCUT SCH ×4 (08:10→21:28)
[2020-12-26] MEDS: BLOOD SUGAR DIAGNOSTIC STRIP TEST SCH ×4 (08:11→20:54)
[2020-12-26] MEDS: CYCLOBENZAPRINE 10MG TABLET PO PRN (08:41)
[2020-12-26] MEDS: CLONIDINE 0.1MG TABLET PO PRN (08:41)
[2020-12-26] MEDS: METOCLOPRAMIDE HCL 5MG TABLET PO SCH ×4 (08:41→20:53)
[2020-12-26] MEDS: DEXAMETHASONE 10 MG/ML VIAL IV SCH (08:41)
[2020-12-26] MEDS: ASPIRIN 81MG TABLET PO SCH (08:41)
[2020-12-26] MEDS: METOPROLOL TARTRATE 25MG TABLET PO SCH ×2 (08:42→20:54)
[2020-12-26 12:00] VITALS: BP 141/70
[2020-12-26] MEDS: INSULIN GLARGINE UD 100 UNITS/ML SYR SUBCUT SCH (12:03)
[2020-12-26 12:08] LABS: PHOSPHORUS 6.3 mg/dL (2.5-4.9)
[2020-12-26 14:46] LABS: PLATELET ESTIMATE NORMAL
[2020-12-26 16:00] VITALS: BP 102/84
[2020-12-26] MEDS: ENOXAPARIN 30MG/0.3ML SYR SUBCUT SCH (17:55)
[2020-12-26 20:00] VITALS: BP 155/83
[2020-12-26] MEDS: ATORVASTATIN CALCIUM 40MG TABLET PO SCH (20:53)
[2020-12-27] VITALS: BP 149/62
[2020-12-27 04:00] VITALS: BP 144/70
[2020-12-27] MEDS: HYDROMORPHONE HCL/PF 2MG/ML CPJ IV PRN (05:33)
[2020-12-27] MEDS: NITROGLYCERIN OINT 1GM/INCH UDPKT TD SCH ×4 (05:33→23:43)
[2020-12-27] MEDS: BENZONATATE 100MG CAPSULE PO SCH ×3 (05:33→21:18)
[2020-12-27] MEDS: HYDRALAZINE HCL 50MG TABLET PO SCH ×3 (05:58→21:18)
[2020-12-27] MEDS: BLOOD SUGAR DIAGNOSTIC STRIP TEST SCH ×4 (06:13→22:15)
[2020-12-27 07:30] LABS: HEMATOCRIT. 27.7 % (36.0-48.0); HEMOGLOBIN. 9.1 g/dL (12.0-16.0); MEAN CORPUSCULAR VOLUME 84.9 fL (81.0-99.0); PLATELET 341 x1000/uL (130-400); RED BLOOD CELL COUNT 3.26 mill/uL (4.2-5.4); RED CELL DISTRIBUTION WIDTH 15.6 % (11.6-14.6)
[2020-12-27 08:00] VITALS: BP 158/67
[2020-12-27] MEDS: INSULIN LISPRO 100 UNITS/ML SUBCUT SCH ×4 (08:10→22:15)
[2020-12-27] MEDS: ASPIRIN 81MG TABLET PO SCH (09:29)
[2020-12-27] MEDS: METOCLOPRAMIDE HCL 5MG TABLET PO SCH ×4 (09:29→21:18)
[2020-12-27] MEDS: METOPROLOL TARTRATE 25MG TABLET PO SCH ×2 (09:29→22:15)
[2020-12-27] MEDS: ACETAMINOPHEN 325MG TABLET PO PRN ×2 (09:30→17:45)
[2020-12-27] MEDS: INSULIN GLARGINE UD 100 UNITS/ML SYR SUBCUT SCH (10:33)
[2020-12-27 12:27] VITALS: BP 204/65
[2020-12-27] MEDS: LABETALOL 5MG/ML SYR 20 MG/4 ML SYRINGE IV PRN (12:52)
[2020-12-27 14:32] LABS: PLATELET ESTIMATE NORMAL
[2020-12-27 16:00] VITALS: BP 170/56
[2020-12-27] MEDS: ENOXAPARIN 30MG/0.3ML SYR SUBCUT SCH (17:30)
[2020-12-27] MEDS: CLONIDINE 0.1MG TABLET PO PRN (17:31)
[2020-12-27] MEDS: CYCLOBENZAPRINE 10MG TABLET PO PRN (17:31)
[2020-12-27 20:00] VITALS: BP 119/62
[2020-12-27] MEDS: ATORVASTATIN CALCIUM 40MG TABLET PO SCH (21:17)
[2020-12-27] MEDS: HYDROMORPHONE HCL/PF 2MG/ML CPJ IM PRN (22:19)
[2020-12-28] VITALS: BP 159/67
[2020-12-28] MEDS: ONDANSETRON HCL 4MG/2ML INJ IV PRN (00:54)
[2020-12-28] MEDS: CYCLOBENZAPRINE 10MG TABLET PO PRN ×2 (00:55→10:14)
[2020-12-28 04:00] VITALS: BP 119/79
[2020-12-28] MEDS: BENZONATATE 100MG CAPSULE PO SCH ×3 (05:11→21:53)
[2020-12-28] MEDS: NITROGLYCERIN OINT 1GM/INCH UDPKT TD SCH ×4 (05:11→23:17)
[2020-12-28] MEDS: HYDRALAZINE HCL 50MG TABLET PO SCH ×3 (05:11→22:00)
[2020-12-28] MEDS: HYDROMORPHONE HCL/PF 2MG/ML CPJ IM PRN ×4 (05:42→19:51)
[2020-12-28] MEDS: BLOOD SUGAR DIAGNOSTIC STRIP TEST SCH ×4 (06:05→21:55)
[2020-12-28 07:20] LABS: HEMATOCRIT. 26.4 % (36.0-48.0); HEMOGLOBIN. 8.5 g/dL (12.0-16.0); MEAN CORPUSCULAR HEMOGLOBIN 27.7 pg (28.0-32.0); MEAN CORPUSCULAR VOLUME 86.2 fL (81.0-99.0); MEAN PLATELET VOLUME 9.7 fl (7.4-10.4); PLATELET 367 x1000/uL (130-400); RED BLOOD CELL COUNT 3.06 mill/uL (4.2-5.4); RED CELL DISTRIBUTION WIDTH 15.1 % (11.6-14.6)
[2020-12-28 08:00] VITALS: BP 177/82
[2020-12-28] MEDS: INSULIN LISPRO 100 UNITS/ML SUBCUT SCH ×4 (08:10→21:55)
[2020-12-28] MEDS: ASPIRIN 81MG TABLET PO SCH (09:13)
[2020-12-28] MEDS: METOPROLOL TARTRATE 25MG TABLET PO SCH ×2 (09:13→21:53)
[2020-12-28] MEDS: METOCLOPRAMIDE HCL 5MG TABLET PO SCH ×4 (09:13→21:53)
[2020-12-28] MEDS: CLONIDINE 0.1MG TABLET PO PRN (09:14)
[2020-12-28] MEDS: ACETAMINOPHEN 325MG TABLET PO PRN (09:14)
[2020-12-28] MEDS: INSULIN GLARGINE UD 100 UNITS/ML SYR SUBCUT SCH (09:58)
[2020-12-28 12:00] VITALS: BP 153/98
[2020-12-28] MEDS: DEXTROSE 50% WATER 50ML SYRINGE IV PRN (12:55)
[2020-12-28 16:00] VITALS: BP 196/85
[2020-12-28] MEDS: ENOXAPARIN 30MG/0.3ML SYR SUBCUT SCH (16:50)
[2020-12-28 20:00] VITALS: BP 180/114
[2020-12-28 21:24] LABS: PLATELET ESTIMATE NORMAL
[2020-12-28] MEDS: ATORVASTATIN CALCIUM 40MG TABLET PO SCH (21:53)
[2020-12-29] VITALS: BP 173/78
[2020-12-29] MEDS: HYDROMORPHONE HCL/PF 2MG/ML CPJ IV PRN ×4 (00:27→20:52)
[2020-12-29 04:00] VITALS: BP 149/78
[2020-12-29] MEDS: HYDRALAZINE HCL 50MG TABLET PO SCH ×3 (05:57→22:25)
[2020-12-29] MEDS: NITROGLYCERIN OINT 1GM/INCH UDPKT TD SCH ×3 (06:05→18:00)
[2020-12-29] MEDS: BENZONATATE 100MG CAPSULE PO SCH ×3 (06:05→22:26)
[2020-12-29 06:48] LABS: HEMATOCRIT. 24.3 % (36.0-48.0); HEMOGLOBIN. 7.8 g/dL (12.0-16.0); MEAN CORPUSCULAR HEMOGLOBIN 27.5 pg (28.0-32.0); MEAN CORPUSCULAR VOLUME 85.4 fL (81.0-99.0); MEAN PLATELET VOLUME 9.5 fl (7.4-10.4); PLATELET 384 x1000/uL (130-400); RED BLOOD CELL COUNT 2.84 mill/uL (4.2-5.4); RED CELL DISTRIBUTION WIDTH 15.9 % (11.6-14.6)
[2020-12-29] MEDS: DEXTROSE 50% WATER 50ML SYRINGE IV PRN (06:50)
[2020-12-29] MEDS: INSULIN LISPRO 100 UNITS/ML SUBCUT SCH ×4 (07:42→22:27)
[2020-12-29] MEDS: BLOOD SUGAR DIAGNOSTIC STRIP TEST SCH ×4 (07:42→21:41)
[2020-12-29 08:00] VITALS: BP 158/78
[2020-12-29] MEDS: METOPROLOL TARTRATE 25MG TABLET PO SCH ×3 (09:00→22:26)
[2020-12-29] MEDS: ACETAMINOPHEN 325MG TABLET PO PRN (09:10)
[2020-12-29] MEDS: CYCLOBENZAPRINE 10MG TABLET PO PRN (09:11)
[2020-12-29] MEDS: ASPIRIN 81MG TABLET PO SCH (09:11)
[2020-12-29] MEDS: METOCLOPRAMIDE HCL 5MG TABLET PO SCH ×5 (09:11→22:25)
[2020-12-29] MEDS: INSULIN GLARGINE UD 100 UNITS/ML SYR SUBCUT SCH (10:00)
[2020-12-29 12:00] VITALS: BP 184/109
[2020-12-29 16:00] VITALS: BP 152/86
[2020-12-29] MEDS: ENOXAPARIN 30MG/0.3ML SYR SUBCUT SCH (18:01)
[2020-12-29 20:00] VITALS: BP 214/130
[2020-12-29 20:09] LABS: PLATELET ESTIMATE NORMAL
[2020-12-29] MEDS: CEFEPIME 1,000 MG in DEXTROSE 5% WATER 50 ML IV SCH (20:52)
[2020-12-29] MEDS: ATORVASTATIN CALCIUM 40MG TABLET PO SCH (22:25)
[2020-12-30] VITALS: BP 167/65
[2020-12-30] MEDS: HYDROMORPHONE HCL/PF 2MG/ML CPJ IV PRN ×4 (02:13→21:42)
[2020-12-30] MEDS: NITROGLYCERIN OINT 1GM/INCH UDPKT TD SCH ×4 (02:55→17:14)
[2020-12-30 04:00] VITALS: BP 141/58
[2020-12-30] MEDS: BENZONATATE 100MG CAPSULE PO SCH ×3 (05:18→22:53)
[2020-12-30] MEDS: HYDRALAZINE HCL 50MG TABLET PO SCH ×3 (05:19→22:53)
[2020-12-30 07:42] LABS: MEAN CORPUSCULAR HEMOGLOBIN 27.4 pg (28.0-32.0); MEAN CORPUSCULAR VOLUME 84.6 fL (81.0-99.0); MEAN PLATELET VOLUME 9.5 fl (7.4-10.4); PLATELET 413 x1000/uL (130-400); RED BLOOD CELL COUNT 1.83 mill/uL (4.2-5.4); RED CELL DISTRIBUTION WIDTH 15.5 % (11.6-14.6)
[2020-12-30] MEDS: INSULIN LISPRO 100 UNITS/ML SUBCUT SCH ×4 (07:57→21:00)
[2020-12-30] MEDS: BLOOD SUGAR DIAGNOSTIC STRIP TEST SCH ×4 (07:57→21:47)
[2020-12-30 08:00] VITALS: BP 156/105
[2020-12-30] MEDS: ASPIRIN 81MG TABLET PO SCH (08:19)
[2020-12-30] MEDS: METOCLOPRAMIDE HCL 5MG TABLET PO SCH (08:19)
[2020-12-30] MEDS: METOPROLOL TARTRATE 25MG TABLET PO SCH ×2 (08:19→21:00)
[2020-12-30 08:39] LABS: HEMATOCRIT. 15.5 % (36.0-48.0)
[2020-12-30] MEDS ORDERED: HYDROCODONE/ACETAMINOPHEN 5/325MG TABLET PO NR (10:30)
[2020-12-30 12:00] VITALS: BP 156/65
[2020-12-30] MEDS: METOCLOPRAMIDE HCL 10MG/2ML VIAL IV SCH ×2 (13:23→17:14)
[2020-12-30] MEDS: INSULIN GLARGINE UD 100 UNITS/ML SYR SUBCUT SCH (13:24)
[2020-12-30 16:00] VITALS: BP 166/60
[2020-12-30] MEDS: PANTOPRAZOLE SODIUM 40 MG/VIAL IV SCH (16:05)
[2020-12-30 20:00] VITALS: BP 188/40
[2020-12-30] MEDS: ATORVASTATIN CALCIUM 40MG TABLET PO SCH (21:46)
[2020-12-30] MEDS: CEFEPIME 1,000 MG in DEXTROSE 5% WATER 50 ML IV SCH (21:46)
[2020-12-31] VITALS (7 sets, daily range): BP systolic 133–189; BP diastolic 41–115
[2020-12-31] MEDS: HYDROMORPHONE HCL/PF 2MG/ML CPJ IV PRN ×7 (00:13→21:41)
[2020-12-31] MEDS: METOCLOPRAMIDE HCL 10MG/2ML VIAL IV SCH ×4 (00:13→17:56)
[2020-12-31] MEDS: NITROGLYCERIN OINT 1GM/INCH UDPKT TD SCH ×4 (00:13→17:56)
[2020-12-31 00:19] LABS: PLATELET ESTIMATE SLIGHTLY INCREASED
[2020-12-31] MEDS: LORAZEPAM 0.5MG TABLET PO PRN (00:57)
[2020-12-31 03:09] LABS: HEMATOCRIT. 25.2 % (36.0-48.0); HEMOGLOBIN. 8.3 g/dL (12.0-16.0); MEAN CORPUSCULAR HEMOGLOBIN 28.2 pg (28.0-32.0); MEAN CORPUSCULAR VOLUME 86.1 fL (81.0-99.0); MEAN PLATELET VOLUME 9.4 fl (7.4-10.4); PLATELET 359 x1000/uL (130-400); RED BLOOD CELL COUNT 2.92 mill/uL (4.2-5.4); RED CELL DISTRIBUTION WIDTH 14.5 % (11.6-14.6)
[2020-12-31] MEDS: HYDRALAZINE HCL 50MG TABLET PO SCH ×3 (05:57→21:38)
[2020-12-31] MEDS: BENZONATATE 100MG CAPSULE PO SCH ×3 (05:57→21:39)
[2020-12-31] MEDS: BLOOD SUGAR DIAGNOSTIC STRIP TEST SCH ×4 (08:00→21:38)
[2020-12-31] MEDS: METOPROLOL TARTRATE 25MG TABLET PO SCH ×2 (08:30→21:39)
[2020-12-31] MEDS: ASPIRIN 81MG TABLET PO SCH (08:30)
[2020-12-31] MEDS: ACETAMINOPHEN 325MG TABLET PO PRN (08:30)
[2020-12-31] MEDS: PANTOPRAZOLE SODIUM 40 MG/VIAL IV SCH ×2 (08:30→17:56)
[2020-12-31] MEDS: INSULIN LISPRO 100 UNITS/ML SUBCUT SCH ×4 (08:32→22:20)
[2020-12-31] MEDS: INSULIN GLARGINE UD 100 UNITS/ML SYR SUBCUT SCH (10:00)
[2020-12-31] MEDS: DEXTROSE 50% WATER 50ML SYRINGE IV PRN (10:23)
[2020-12-31] MEDS: AMLODIPINE 5MG TABLET PO SCH ×2 (11:58→21:39)
[2020-12-31 13:56] LABS: PLATELET ESTIMATE NORMAL
[2020-12-31] MEDS: ATORVASTATIN CALCIUM 40MG TABLET PO SCH (21:39)
[2020-12-31] MEDS: CEFEPIME 1,000 MG in DEXTROSE 5% WATER 50 ML IV SCH (21:40)
[2021-01-01] VITALS (7 sets, daily range): BP systolic 156–189; BP diastolic 51–168
[2021-01-01] MEDS: NITROGLYCERIN OINT 1GM/INCH UDPKT TD SCH ×4 (00:45→17:31)
[2021-01-01] MEDS: METOCLOPRAMIDE HCL 10MG/2ML VIAL IV SCH ×4 (00:46→17:31)
[2021-01-01] MEDS: HYDROMORPHONE HCL/PF 2MG/ML CPJ IV PRN ×6 (03:01→20:57)
[2021-01-01] MEDS: BENZONATATE 100MG CAPSULE PO SCH ×3 (05:13→20:52)
[2021-01-01] MEDS: HYDRALAZINE HCL 50MG TABLET PO SCH ×3 (05:13→20:57)
[2021-01-01] MEDS: BLOOD SUGAR DIAGNOSTIC STRIP TEST SCH ×4 (06:18→20:51)
[2021-01-01 07:06] LABS: HEMATOCRIT. 26.3 % (36.0-48.0); HEMOGLOBIN. 8.6 g/dL (12.0-16.0); MEAN CORPUSCULAR HEMOGLOBIN 28.5 pg (28.0-32.0); MEAN CORPUSCULAR VOLUME 87.7 fL (81.0-99.0); MEAN PLATELET VOLUME 9.5 fl (7.4-10.4); PLATELET 337 x1000/uL (130-400); RED CELL DISTRIBUTION WIDTH 14.9 % (11.6-14.6)
[2021-01-01] MEDS: INSULIN LISPRO 100 UNITS/ML SUBCUT SCH ×4 (08:18→20:51)
[2021-01-01] MEDS: ASPIRIN 81MG TABLET PO SCH (08:20)
[2021-01-01] MEDS: METOPROLOL TARTRATE 25MG TABLET PO SCH ×2 (08:20→20:52)
[2021-01-01] MEDS: AMLODIPINE 5MG TABLET PO SCH ×2 (08:21→20:51)
[2021-01-01] MEDS: PANTOPRAZOLE SODIUM 40 MG/VIAL IV SCH ×2 (08:21→17:24)
[2021-01-01 13:24] LABS: PLATELET ESTIMATE NORMAL
[2021-01-01] MEDS: ATORVASTATIN CALCIUM 40MG TABLET PO SCH (20:52)
[2021-01-01] MEDS: CEFEPIME 1,000 MG in DEXTROSE 5% WATER 50 ML IV SCH (20:52)
[2021-01-02] VITALS: BP 157/79
[2021-01-02] MEDS: METOCLOPRAMIDE HCL 10MG/2ML VIAL IV SCH ×5 (01:22→21:52)
[2021-01-02] MEDS: NITROGLYCERIN OINT 1GM/INCH UDPKT TD SCH ×5 (01:22→21:52)
[2021-01-02 04:00] VITALS: BP 147/82
[2021-01-02] MEDS: HYDROMORPHONE HCL/PF 2MG/ML CPJ IV PRN ×5 (04:50→20:42)
[2021-01-02] MEDS: HYDRALAZINE HCL 50MG TABLET PO SCH ×3 (05:07→21:51)
[2021-01-02] MEDS: BENZONATATE 100MG CAPSULE PO SCH ×3 (05:08→21:49)
[2021-01-02] MEDS: BLOOD SUGAR DIAGNOSTIC STRIP TEST SCH ×4 (05:54→21:56)
[2021-01-02 07:11] LABS: HEMATOCRIT. 26.3 % (36.0-48.0); HEMOGLOBIN. 8.5 g/dL (12.0-16.0); MEAN CORPUSCULAR HEMOGLOBIN 28.5 pg (28.0-32.0); MEAN CORPUSCULAR VOLUME 87.9 fL (81.0-99.0); MEAN PLATELET VOLUME 9.9 fl (7.4-10.4); PLATELET 325 x1000/uL (130-400); RED BLOOD CELL COUNT 2.99 mill/uL (4.2-5.4); RED CELL DISTRIBUTION WIDTH 15.1 % (11.6-14.6)
[2021-01-02 08:30] VITALS: BP 179/63
[2021-01-02] MEDS: ASPIRIN 81MG TABLET PO SCH (08:35)
[2021-01-02] MEDS: INSULIN LISPRO 100 UNITS/ML SUBCUT SCH ×4 (08:37→22:04)
[2021-01-02] MEDS: AMLODIPINE 5MG TABLET PO SCH ×2 (09:08→21:54)
[2021-01-02] MEDS: PANTOPRAZOLE SODIUM 40 MG/VIAL IV SCH ×2 (09:08→17:51)
[2021-01-02] MEDS: METOPROLOL TARTRATE 25MG TABLET PO SCH ×2 (09:08→21:50)
[2021-01-02 12:00] VITALS: BP 90/42
[2021-01-02 13:48] LABS: PLATELET ESTIMATE NORMAL
[2021-01-02 16:00] VITALS: BP 135/89
[2021-01-02] MEDS: DEXTROSE 50% WATER 50ML SYRINGE IV PRN (17:28)
[2021-01-02] MEDS: LORAZEPAM 0.5MG TABLET PO PRN (17:55)
[2021-01-02 20:00] VITALS: BP 169/56
[2021-01-02] MEDS: CEFEPIME 1,000 MG in DEXTROSE 5% WATER 50 ML IV SCH (20:13)
[2021-01-02] MEDS: ATORVASTATIN CALCIUM 40MG TABLET PO SCH (21:49)
[2021-01-02] MEDS: ONDANSETRON HCL 4MG/2ML INJ IV PRN (22:07)
[2021-01-03] VITALS: BP 124/49
[2021-01-03] MEDS: HYDROMORPHONE HCL/PF 2MG/ML CPJ IV PRN ×7 (01:09→21:28)
[2021-01-03 04:00] VITALS: BP 123/58
[2021-01-03] MEDS: BLOOD SUGAR DIAGNOSTIC STRIP TEST SCH ×4 (05:41→21:28)
[2021-01-03] MEDS: INSULIN LISPRO 100 UNITS/ML SUBCUT SCH ×4 (05:42→21:00)
[2021-01-03] MEDS: ONDANSETRON HCL 4MG/2ML INJ IV PRN (06:05)
[2021-01-03] MEDS: BENZONATATE 100MG CAPSULE PO SCH ×3 (06:05→21:26)
[2021-01-03] MEDS: METOCLOPRAMIDE HCL 10MG/2ML VIAL IV SCH ×4 (06:05→21:26)
[2021-01-03] MEDS: HYDRALAZINE HCL 50MG TABLET PO SCH ×3 (06:06→22:00)
[2021-01-03] MEDS: NITROGLYCERIN OINT 1GM/INCH UDPKT TD SCH ×4 (06:06→21:28)
[2021-01-03 08:00] VITALS: BP 134/76
[2021-01-03] MEDS: PANTOPRAZOLE SODIUM 40 MG/VIAL IV SCH ×2 (08:29→16:46)
[2021-01-03] MEDS: ASPIRIN 81MG TABLET PO SCH (08:29)
[2021-01-03] MEDS: METOPROLOL TARTRATE 25MG TABLET PO SCH ×2 (08:30→21:33)
[2021-01-03] MEDS: AMLODIPINE 5MG TABLET PO SCH ×2 (08:31→21:25)
[2021-01-03] MEDS: LORAZEPAM 0.5MG TABLET PO PRN ×2 (09:37→21:26)
[2021-01-03 12:00] VITALS: BP 166/66
[2021-01-03 16:00] VITALS: BP 143/50
[2021-01-03 16:35] LABS: HEMATOCRIT. 24.5 % (36.0-48.0); HEMOGLOBIN. 7.9 g/dL (12.0-16.0); MEAN CORPUSCULAR HEMOGLOBIN 28.2 pg (28.0-32.0); MEAN CORPUSCULAR VOLUME 87.2 fL (81.0-99.0); MEAN PLATELET VOLUME 9.2 fl (7.4-10.4); PLATELET 358 x1000/uL (130-400)
[2021-01-03 16:52] LABS: PLATELET ESTIMATE NORMAL
[2021-01-03] MEDS: CYCLOBENZAPRINE 10MG TABLET PO PRN (21:26)
[2021-01-03] MEDS: ATORVASTATIN CALCIUM 40MG TABLET PO SCH (21:26)
[2021-01-04] VITALS (7 sets, daily range): BP systolic 115–174; BP diastolic 53–83
[2021-01-04] MEDS: ONDANSETRON HCL 4MG/2ML INJ IV PRN (00:47)
[2021-01-04] MEDS: HYDROMORPHONE HCL/PF 2MG/ML CPJ IV PRN ×5 (04:08→23:13)
[2021-01-04] MEDS: BLOOD SUGAR DIAGNOSTIC STRIP TEST SCH ×4 (06:06→21:11)
[2021-01-04] MEDS: HYDRALAZINE HCL 50MG TABLET PO SCH ×3 (06:13→21:21)
[2021-01-04] MEDS: METOCLOPRAMIDE HCL 10MG/2ML VIAL IV SCH ×3 (06:13→17:10)
[2021-01-04] MEDS: BENZONATATE 100MG CAPSULE PO SCH ×3 (06:13→21:20)
[2021-01-04] MEDS: NITROGLYCERIN OINT 1GM/INCH UDPKT TD SCH ×3 (06:13→17:10)
[2021-01-04] MEDS: INSULIN LISPRO 100 UNITS/ML SUBCUT SCH ×4 (06:14→21:00)
[2021-01-04] MEDS: CYCLOBENZAPRINE 10MG TABLET PO PRN (06:39)
[2021-01-04] MEDS: AMLODIPINE 5MG TABLET PO SCH ×2 (09:32→20:16)
[2021-01-04] MEDS: PANTOPRAZOLE SODIUM 40 MG/VIAL IV SCH ×2 (09:32→17:10)
[2021-01-04] MEDS: METOPROLOL TARTRATE 25MG TABLET PO SCH ×2 (09:32→20:17)
[2021-01-04] MEDS: ASPIRIN 81MG TABLET PO SCH (09:33)
[2021-01-04] MEDS: LORAZEPAM 0.5MG TABLET PO PRN (15:21)
[2021-01-04] MEDS: ATORVASTATIN CALCIUM 40MG TABLET PO SCH (20:17)
[2021-01-05] VITALS: BP 151/61
[2021-01-05] MEDS: METOCLOPRAMIDE HCL 10MG/2ML VIAL IV SCH ×4 (00:44→17:19)
[2021-01-05] MEDS: NITROGLYCERIN OINT 1GM/INCH UDPKT TD SCH ×4 (00:44→17:19)
[2021-01-05] MEDS: HYDROMORPHONE HCL/PF 2MG/ML CPJ IV PRN ×8 (01:53→22:16)
[2021-01-05 04:00] VITALS: BP 124/102
[2021-01-05] MEDS: HYDRALAZINE HCL 50MG TABLET PO SCH ×3 (06:00→22:05)
[2021-01-05] MEDS: BENZONATATE 100MG CAPSULE PO SCH ×3 (06:20→22:03)
[2021-01-05] MEDS: BLOOD SUGAR DIAGNOSTIC STRIP TEST SCH ×4 (06:50→20:28)
[2021-01-05] MEDS: INSULIN LISPRO 100 UNITS/ML SUBCUT SCH ×4 (06:50→20:43)
[2021-01-05 07:31] LABS: HEMATOCRIT. 23.7 % (36.0-48.0); HEMOGLOBIN. 7.7 g/dL (12.0-16.0); MEAN CORPUSCULAR HEMOGLOBIN 28.7 pg (28.0-32.0); MEAN CORPUSCULAR VOLUME 87.9 fL (81.0-99.0); MEAN PLATELET VOLUME 9.8 fl (7.4-10.4); PLATELET 370 x1000/uL (130-400); RED CELL DISTRIBUTION WIDTH 15.4 % (11.6-14.6)
[2021-01-05 08:00] VITALS: BP 129/94
[2021-01-05] MEDS: ASPIRIN 81MG TABLET PO SCH (08:28)
[2021-01-05] MEDS: PANTOPRAZOLE SODIUM 40 MG/VIAL IV SCH ×2 (08:28→17:19)
[2021-01-05] MEDS: METOPROLOL TARTRATE 25MG TABLET PO SCH ×2 (08:28→20:40)
[2021-01-05] MEDS: AMLODIPINE 5MG TABLET PO SCH ×2 (08:28→20:40)
[2021-01-05 12:00] VITALS: BP 168/76
[2021-01-05 13:34] LABS: PLATELET ESTIMATE NORMAL
[2021-01-05 16:00] VITALS: BP 178/90
[2021-01-05] MEDS ORDERED: IPRATROPIUM/ALBUTEROL 0.5-3(2.5)MG/3ML NEB HHN PRN (18:45)
[2021-01-05 20:00] VITALS: BP 179/74
[2021-01-05] MEDS: ATORVASTATIN CALCIUM 40MG TABLET PO SCH (20:40)
[2021-01-05] MEDS: CYCLOBENZAPRINE 10MG TABLET PO PRN (20:51)
[2021-01-05] MEDS: EPOETIN ALFA-EPBX 10,000 UNIT/ML VIAL SUBCUT SCH (22:03)
[2021-01-06] VITALS: BP 163/69
[2021-01-06] MEDS: HYDROMORPHONE HCL/PF 2MG/ML CPJ IV PRN ×8 (00:26→23:46)
[2021-01-06] MEDS: METOCLOPRAMIDE HCL 10MG/2ML VIAL IV SCH ×4 (00:28→17:52)
[2021-01-06] MEDS: NITROGLYCERIN OINT 1GM/INCH UDPKT TD SCH ×5 (00:29→23:47)
[2021-01-06 04:00] VITALS: BP 160/71
[2021-01-06] MEDS: HYDRALAZINE HCL 50MG TABLET PO SCH ×3 (06:00→20:34)
[2021-01-06] MEDS: BENZONATATE 100MG CAPSULE PO SCH ×3 (06:00→20:34)
[2021-01-06] MEDS: BLOOD SUGAR DIAGNOSTIC STRIP TEST SCH ×4 (06:19→20:26)
[2021-01-06] MEDS: INSULIN LISPRO 100 UNITS/ML SUBCUT SCH ×4 (06:24→20:43)
[2021-01-06 08:00] VITALS: BP 135/70
[2021-01-06] MEDS: PANTOPRAZOLE SODIUM 40 MG/VIAL IV SCH ×2 (09:32→17:52)
[2021-01-06] MEDS: ASPIRIN 81MG TABLET PO SCH (09:32)
[2021-01-06] MEDS: METOPROLOL TARTRATE 25MG TABLET PO SCH ×2 (09:33→20:34)
[2021-01-06] MEDS: AMLODIPINE 5MG TABLET PO SCH ×2 (09:34→20:34)
[2021-01-06 10:46] LABS: HEMATOCRIT. 25.7 % (36.0-48.0); HEMOGLOBIN. 8.5 g/dL (12.0-16.0); MEAN CORPUSCULAR HEMOGLOBIN 29.5 pg (28.0-32.0); MEAN CORPUSCULAR VOLUME 88.6 fL (81.0-99.0); MEAN PLATELET VOLUME 8.8 fl (7.4-10.4); PLATELET 405 x1000/uL (130-400); RED CELL DISTRIBUTION WIDTH 15.3 % (11.6-14.6)
[2021-01-06 12:00] VITALS: BP 169/75
[2021-01-06 12:15] LABS: PLATELET ESTIMATE SLIGHTLY INCREASED
[2021-01-06] MEDS: IPRATROPIUM/ALBUTEROL 0.5-3(2.5)MG/3ML NEB HHN SCH ×2 (13:46→21:30)
[2021-01-06 16:00] VITALS: BP 184/70
[2021-01-06 20:00] VITALS: BP 192/69
[2021-01-06] MEDS: ATORVASTATIN CALCIUM 40MG TABLET PO SCH (20:33)
[2021-01-07] VITALS: BP 161/97
[2021-01-07] MEDS: METOCLOPRAMIDE HCL 10MG/2ML VIAL IV SCH ×4 (00:08→17:37)
[2021-01-07] MEDS: LABETALOL 5MG/ML SYR 20 MG/4 ML SYRINGE IV PRN (02:10)
[2021-01-07] MEDS: IPRATROPIUM/ALBUTEROL 0.5-3(2.5)MG/3ML NEB HHN SCH ×4 (02:49→20:26)
[2021-01-07 04:00] VITALS: BP 166/71
[2021-01-07] MEDS: HYDROMORPHONE HCL/PF 2MG/ML CPJ IV PRN ×4 (05:23→19:06)
[2021-01-07] MEDS: NITROGLYCERIN OINT 1GM/INCH UDPKT TD SCH ×3 (05:23→17:51)
[2021-01-07] MEDS: BENZONATATE 100MG CAPSULE PO SCH ×3 (05:30→21:55)
[2021-01-07] MEDS: CLONIDINE 0.1MG TABLET PO PRN (05:30)
[2021-01-07] MEDS: HYDRALAZINE HCL 50MG TABLET PO SCH ×3 (05:30→23:58)
[2021-01-07] MEDS: BLOOD SUGAR DIAGNOSTIC STRIP TEST SCH ×4 (06:06→21:00)
[2021-01-07] MEDS: INSULIN LISPRO 100 UNITS/ML SUBCUT SCH ×4 (06:50→21:00)
[2021-01-07 08:00] VITALS: BP 173/61
[2021-01-07] MEDS: ASPIRIN 81MG TABLET PO SCH (08:21)
[2021-01-07] MEDS: FOLIC ACID/VITAMIN B COMP W-C TABLET PO SCH (08:21)
[2021-01-07] MEDS: AMLODIPINE 5MG TABLET PO SCH ×2 (08:21→21:51)
[2021-01-07] MEDS: PANTOPRAZOLE SODIUM 40 MG/VIAL IV SCH ×2 (08:21→17:37)
[2021-01-07 09:53] LABS: HEMATOCRIT. 23.4 % (36.0-48.0); HEMOGLOBIN. 7.7 g/dL (12.0-16.0); MEAN CORPUSCULAR HEMOGLOBIN 29.1 pg (28.0-32.0); MEAN CORPUSCULAR VOLUME 88.2 fL (81.0-99.0); MEAN PLATELET VOLUME 9.6 fl (7.4-10.4); PLATELET 370 x1000/uL (130-400); RED BLOOD CELL COUNT 2.66 mill/uL (4.2-5.4); RED CELL DISTRIBUTION WIDTH 15.4 % (11.6-14.6)
[2021-01-07] MEDS: INSULIN GLARGINE UD 100 UNITS/ML SYR SUBCUT SCH ×2 (11:39→22:00)
[2021-01-07 12:00] VITALS: BP 141/78
[2021-01-07] MEDS: ONDANSETRON HCL 4MG/2ML INJ IV PRN (13:13)
[2021-01-07 16:00] VITALS: BP 132/66
[2021-01-07 20:00] VITALS: BP 148/61
[2021-01-07] MEDS: ATORVASTATIN CALCIUM 40MG TABLET PO SCH (21:49)
[2021-01-07] MEDS: METOPROLOL TARTRATE 50MG TABLET PO SCH (21:50)
[2021-01-07] MEDS: EPOETIN ALFA-EPBX 10,000 UNIT/ML VIAL SUBCUT SCH (21:55)
[2021-01-07 23:07] LABS: PLATELET ESTIMATE NORMAL
[2021-01-08] VITALS: BP 157/63
[2021-01-08] MEDS: HYDROMORPHONE HCL/PF 2MG/ML CPJ IV PRN ×7 (00:08→20:42)
[2021-01-08] MEDS: IPRATROPIUM/ALBUTEROL 0.5-3(2.5)MG/3ML NEB HHN SCH ×3 (00:31→16:13)
[2021-01-08] MEDS: NITROGLYCERIN OINT 1GM/INCH UDPKT TD SCH ×5 (01:32→23:01)
[2021-01-08] MEDS: METOCLOPRAMIDE HCL 10MG/2ML VIAL IV SCH ×5 (01:34→23:01)
[2021-01-08 04:00] VITALS: BP 156/51
[2021-01-08] MEDS: BENZONATATE 100MG CAPSULE PO SCH ×3 (06:43→22:23)
[2021-01-08] MEDS: HYDRALAZINE HCL 50MG TABLET PO SCH ×3 (06:43→22:23)
[2021-01-08] MEDS: INSULIN LISPRO 100 UNITS/ML SUBCUT SCH ×4 (07:25→21:00)
[2021-01-08 08:00] VITALS: BP 169/92
[2021-01-08] MEDS: ASPIRIN 81MG TABLET PO SCH (08:32)
[2021-01-08] MEDS: AMLODIPINE 5MG TABLET PO SCH ×2 (08:32→20:41)
[2021-01-08] MEDS: METOPROLOL TARTRATE 50MG TABLET PO SCH ×2 (08:33→20:41)
[2021-01-08] MEDS: FOLIC ACID/VITAMIN B COMP W-C TABLET PO SCH (08:33)
[2021-01-08] MEDS: PANTOPRAZOLE SODIUM 40 MG/VIAL IV SCH ×2 (08:33→17:23)
[2021-01-08] MEDS: INSULIN GLARGINE UD 100 UNITS/ML SYR SUBCUT SCH ×3 (10:00→22:24)
[2021-01-08 10:08] LABS: HEMATOCRIT. 27.3 % (36.0-48.0); HEMOGLOBIN. 8.8 g/dL (12.0-16.0); MEAN CORPUSCULAR HEMOGLOBIN 28.7 pg (28.0-32.0); MEAN CORPUSCULAR VOLUME 89.4 fL (81.0-99.0); MEAN PLATELET VOLUME 9.8 fl (7.4-10.4); PLATELET 394 x1000/uL (130-400); RED BLOOD CELL COUNT 3.06 mill/uL (4.2-5.4); RED CELL DISTRIBUTION WIDTH 15.9 % (11.6-14.6)
[2021-01-08] MEDS: BLOOD SUGAR DIAGNOSTIC STRIP TEST SCH ×3 (11:30→21:00)
[2021-01-08 12:00] VITALS: BP 147/70
[2021-01-08 16:00] VITALS: BP 149/76
[2021-01-08] MEDS: LORAZEPAM 1MG TABLET PO PRN ×2 (17:23→23:01)
[2021-01-08] MEDS: ATORVASTATIN CALCIUM 40MG TABLET PO SCH (20:41)
[2021-01-08 23:14] LABS: PLATELET ESTIMATE NORMAL
[2021-01-09] MEDS: HYDROMORPHONE HCL/PF 2MG/ML CPJ IV PRN ×6 (00:29→23:35)
[2021-01-09] MEDS: LORAZEPAM 1MG TABLET PO PRN ×2 (04:56→17:30)
[2021-01-09] MEDS: HYDRALAZINE HCL 50MG TABLET PO SCH ×3 (06:06→20:52)
[2021-01-09] MEDS: BENZONATATE 100MG CAPSULE PO SCH ×3 (06:06→20:57)
[2021-01-09] MEDS: NITROGLYCERIN OINT 1GM/INCH UDPKT TD SCH ×4 (06:06→23:34)
[2021-01-09] MEDS: METOCLOPRAMIDE HCL 10MG/2ML VIAL IV SCH ×4 (06:07→23:34)
[2021-01-09 06:17] LABS: HEMATOCRIT. 23.1 % (36.0-48.0); HEMOGLOBIN. 7.5 g/dL (12.0-16.0); MEAN CORPUSCULAR HEMOGLOBIN 29.2 pg (28.0-32.0); MEAN CORPUSCULAR VOLUME 89.3 fL (81.0-99.0); MEAN PLATELET VOLUME 9.7 fl (7.4-10.4); PLATELET 344 x1000/uL (130-400); RED BLOOD CELL COUNT 2.58 mill/uL (4.2-5.4)
[2021-01-09] MEDS: INSULIN LISPRO 100 UNITS/ML SUBCUT SCH ×4 (06:31→20:54)
[2021-01-09] MEDS: BLOOD SUGAR DIAGNOSTIC STRIP TEST SCH ×4 (06:41→20:53)
[2021-01-09 08:11] VITALS: BP 177/35
[2021-01-09] MEDS: METOPROLOL TARTRATE 50MG TABLET PO SCH ×2 (08:22→20:52)
[2021-01-09] MEDS: FOLIC ACID/VITAMIN B COMP W-C TABLET PO SCH (08:22)
[2021-01-09] MEDS: PANTOPRAZOLE SODIUM 40 MG/VIAL IV SCH (08:22)
[2021-01-09] MEDS: AMLODIPINE 5MG TABLET PO SCH ×2 (08:22→20:53)
[2021-01-09] MEDS: ASPIRIN 81MG TABLET PO SCH (08:22)
[2021-01-09 08:46] LABS: PLATELET ESTIMATE NORMAL
[2021-01-09] MEDS: IPRATROPIUM/ALBUTEROL 0.5-3(2.5)MG/3ML NEB HHN SCH ×3 (08:49→21:05)
[2021-01-09] MEDS: INSULIN GLARGINE UD 100 UNITS/ML SYR SUBCUT SCH ×2 (10:47→22:00)
[2021-01-09] MEDS: DEXTROSE 50% WATER 50ML SYRINGE IV PRN (11:40)
[2021-01-09 12:19] VITALS: BP 164/47
[2021-01-09 13:12] LABS: BG BASE EXCESS 2.1 mmol/L (-2.0-2.0); BG CARBOXYHEMOGLOBIN 0.7 % (0.5-1.5); BG FRACTION INSPIRED OXYGEN 44; BG HCO3 ACT 26.5 mmol/L (22.0-26.0); BG METHEMOGLOBIN 0.2 % (0.0-1.5); BG OXYGEN SATURATION 88.9 % (92.0-98.5); BG OXYHEMOGLOBIN 88.1 % (94.0-97.0); BG PCO2 40.9 mmHg (35.0-45.0); BG SAMPLE SITE RIGHT RADIAL; BG TOTAL HEMOGLOBIN 8.5 g/dL (12.0-18.0); BG VENT MODE NASAL CANNULA
[2021-01-09 15:50] VITALS: BP 155/68
[2021-01-09 20:00] VITALS: BP 157/81
[2021-01-09] MEDS: ATORVASTATIN CALCIUM 40MG TABLET PO SCH (20:52)
[2021-01-09] MEDS: OMEPRAZOLE 20MG CAPSULE EXTENDED RELEASE PO SCH (20:52)
[2021-01-10] VITALS (7 sets, daily range): BP systolic 127–177; BP diastolic 52–87
[2021-01-10] MEDS: IPRATROPIUM/ALBUTEROL 0.5-3(2.5)MG/3ML NEB HHN SCH ×4 (02:54→21:05)
[2021-01-10] MEDS: HYDROMORPHONE HCL/PF 2MG/ML CPJ IV PRN ×6 (03:51→22:16)
[2021-01-10] MEDS: BLOOD SUGAR DIAGNOSTIC STRIP TEST SCH ×4 (05:45→21:00)
[2021-01-10] MEDS: OMEPRAZOLE 20MG CAPSULE EXTENDED RELEASE PO SCH ×2 (05:45→21:54)
[2021-01-10] MEDS: BENZONATATE 100MG CAPSULE PO SCH ×3 (05:45→21:54)
[2021-01-10] MEDS: METOCLOPRAMIDE HCL 10MG/2ML VIAL IV SCH ×3 (05:45→17:39)
[2021-01-10] MEDS: NITROGLYCERIN OINT 1GM/INCH UDPKT TD SCH ×3 (05:45→17:39)
[2021-01-10] MEDS: HYDRALAZINE HCL 100MG TABLET PO SCH ×3 (05:46→21:55)
[2021-01-10] MEDS: INSULIN LISPRO 100 UNITS/ML SUBCUT SCH ×4 (05:48→21:00)
[2021-01-10] MEDS: FOLIC ACID/VITAMIN B COMP W-C TABLET PO SCH (08:03)
[2021-01-10] MEDS: AMLODIPINE 5MG TABLET PO SCH ×2 (08:03→21:55)
[2021-01-10] MEDS: METOPROLOL TARTRATE 50MG TABLET PO SCH ×2 (08:03→21:56)
[2021-01-10] MEDS: ASPIRIN 81MG TABLET PO SCH (08:03)
[2021-01-10] MEDS: INSULIN GLARGINE UD 100 UNITS/ML SYR SUBCUT SCH ×2 (09:58→21:57)
[2021-01-10] MEDS: ATORVASTATIN CALCIUM 40MG TABLET PO SCH (21:55)
[2021-01-10] MEDS: EPOETIN ALFA-EPBX 10,000 UNIT/ML VIAL SUBCUT SCH (22:08)
[2021-01-11] VITALS: BP 149/69
[2021-01-11] MEDS: METOCLOPRAMIDE HCL 10MG/2ML VIAL IV SCH ×5 (00:26→23:20)
[2021-01-11] MEDS: NITROGLYCERIN OINT 1GM/INCH UDPKT TD SCH ×5 (00:26→23:20)
[2021-01-11] MEDS: IPRATROPIUM/ALBUTEROL 0.5-3(2.5)MG/3ML NEB HHN SCH ×4 (01:40→21:33)
[2021-01-11] MEDS: HYDROMORPHONE HCL/PF 2MG/ML CPJ IV PRN ×5 (02:27→20:27)
[2021-01-11] MEDS: HYDRALAZINE HCL 100MG TABLET PO SCH ×3 (06:09→22:24)
[2021-01-11] MEDS: BENZONATATE 100MG CAPSULE PO SCH ×3 (06:09→22:23)
[2021-01-11] MEDS: OMEPRAZOLE 20MG CAPSULE EXTENDED RELEASE PO SCH ×2 (06:09→21:15)
[2021-01-11] MEDS: BLOOD SUGAR DIAGNOSTIC STRIP TEST SCH ×4 (06:17→21:09)
[2021-01-11] MEDS: INSULIN LISPRO 100 UNITS/ML SUBCUT SCH ×4 (06:18→21:00)
[2021-01-11 07:22] LABS: HEMATOCRIT. 24.5 % (36.0-48.0); HEMOGLOBIN. 7.8 g/dL (12.0-16.0); MEAN CORPUSCULAR HEMOGLOBIN 28.6 pg (28.0-32.0); MEAN CORPUSCULAR VOLUME 89.2 fL (81.0-99.0); MEAN PLATELET VOLUME 9.6 fl (7.4-10.4); PLATELET 440 x1000/uL (130-400); RED BLOOD CELL COUNT 2.74 mill/uL (4.2-5.4); RED CELL DISTRIBUTION WIDTH 16.3 % (11.6-14.6)
[2021-01-11 08:00] VITALS: BP 95/73
[2021-01-11] MEDS: METOPROLOL TARTRATE 50MG TABLET PO SCH ×2 (09:00→21:16)
[2021-01-11] MEDS: AMLODIPINE 5MG TABLET PO SCH ×2 (09:00→21:15)
[2021-01-11] MEDS: FOLIC ACID/VITAMIN B COMP W-C TABLET PO SCH (09:19)
[2021-01-11] MEDS: ASPIRIN 81MG TABLET PO SCH (09:19)
[2021-01-11] MEDS ORDERED: SODIUM BICARBONATE 8.4% 1 MEQ/ML 50ML SYR IV NR (09:30)
[2021-01-11] MEDS: DEXTROSE 50% WATER 50ML SYRINGE IV NR ×2 (09:30→14:43)
[2021-01-11] MEDS ORDERED: INSULIN REGULAR (HUMULIN R) UD 100 UNITS/ML SYR IV NR (10:30)
[2021-01-11] MEDS ORDERED: SODIUM POLYSTYRENE SULFONATE 15 G/60 ML BOT PO NR (10:30)
[2021-01-11 12:00] VITALS: BP 141/67
[2021-01-11] MEDS: CLONIDINE 0.1MG TABLET PO PRN (13:18)
[2021-01-11] MEDS: INSULIN GLARGINE UD 100 UNITS/ML SYR SUBCUT SCH ×2 (13:20→22:00)
[2021-01-11 16:00] VITALS: BP 142/57
[2021-01-11 16:28] LABS: BG BASE EXCESS 2.9 mmol/L (-2.0-2.0); BG DEOXYHEMOGLOBIN 39.8 % (0.0-5.0); BG FRACTION INSPIRED OXYGEN 21; BG HCO3 ACT 27.6 mmol/L (22.0-26.0); BG METHEMOGLOBIN 0.2 % (0.0-1.5); BG OXYGEN SATURATION 59.7 % (92.0-98.5); BG PCO2 43.1 mmHg (35.0-45.0); BG PH 7.425 (7.350-7.450); BG PO2 34.7 mmHg (75.0-100.0); BG SAMPLE SITE RIGHT RADIAL; BG TOTAL HEMOGLOBIN 8.6 g/dL (12.0-18.0); BG VENT MODE ROOM AIR
[2021-01-11 20:00] VITALS: BP 139/62
[2021-01-11] MEDS: ATORVASTATIN CALCIUM 40MG TABLET PO SCH (21:15)
[2021-01-11 22:44] LABS: PLATELET ESTIMATE INCREASED
[2021-01-12] MEDS: HYDROMORPHONE HCL/PF 2MG/ML CPJ IV PRN ×5 (00:26→20:10)
[2021-01-12] MEDS: LORAZEPAM 1MG TABLET PO PRN ×2 (02:45→18:03)
[2021-01-12] MEDS: IPRATROPIUM/ALBUTEROL 0.5-3(2.5)MG/3ML NEB HHN SCH ×4 (02:48→21:44)
[2021-01-12 04:00] VITALS: BP 137/54
[2021-01-12] MEDS: METOCLOPRAMIDE HCL 10MG/2ML VIAL IV SCH ×3 (05:33→18:04)
[2021-01-12] MEDS: BENZONATATE 100MG CAPSULE PO SCH ×3 (05:33→22:42)
[2021-01-12] MEDS: NITROGLYCERIN OINT 1GM/INCH UDPKT TD SCH ×3 (05:33→18:03)
[2021-01-12] MEDS: HYDRALAZINE HCL 100MG TABLET PO SCH ×3 (05:33→22:42)
[2021-01-12] MEDS: OMEPRAZOLE 20MG CAPSULE EXTENDED RELEASE PO SCH ×2 (05:46→21:24)
[2021-01-12] MEDS: BLOOD SUGAR DIAGNOSTIC STRIP TEST SCH ×4 (05:51→21:00)
[2021-01-12] MEDS: INSULIN LISPRO 100 UNITS/ML SUBCUT SCH ×4 (06:15→21:30)
[2021-01-12 07:40] LABS: EOSINOPHILS % 1.6 % (0.0-5.0); HEMATOCRIT. 24.7 % (36.0-48.0); HEMOGLOBIN. 7.8 g/dL (12.0-16.0); LYMPHOCYTES % 7.8 % (20.0-50.0); MEAN CORPUSCULAR HEMOGLOBIN 28.6 pg (28.0-32.0); MEAN CORPUSCULAR VOLUME 89.9 fL (81.0-99.0); MEAN PLATELET VOLUME 9.3 fl (7.4-10.4); MONOCYTES % 9.7 % (2.0-8.0); NEUTROPHILS % 79.9 % (40.0-76.0); PLATELET 453 x1000/uL (130-400); RED BLOOD CELL COUNT 2.74 mill/uL (4.2-5.4); RED CELL DISTRIBUTION WIDTH 17.1 % (11.6-14.6)
[2021-01-12 08:00] VITALS: BP 144/64
[2021-01-12] MEDS: FOLIC ACID/VITAMIN B COMP W-C TABLET PO SCH (08:08)
[2021-01-12] MEDS: ASPIRIN 81MG TABLET PO SCH (08:08)
[2021-01-12] MEDS: METOPROLOL TARTRATE 50MG TABLET PO SCH ×2 (08:11→21:00)
[2021-01-12] MEDS: AMLODIPINE 5MG TABLET PO SCH ×2 (08:11→21:25)
[2021-01-12] MEDS: INSULIN GLARGINE UD 100 UNITS/ML SYR SUBCUT SCH ×2 (08:18→22:44)
[2021-01-12] MEDS: DEXTROSE 50% WATER 50ML SYRINGE IV PRN (10:34)
[2021-01-12 12:00] VITALS: BP 149/70
[2021-01-12 16:00] VITALS: BP 167/43
[2021-01-12 17:47] LABS: HEPATITIS B SURFACE AB 66.2 mIU/mL
[2021-01-12 17:58] LABS: HEPATITIS B SURFACE ANTIGEN NEGATIVE
[2021-01-12] MEDS: CLONIDINE 0.1MG TABLET PO PRN (18:03)
[2021-01-12 18:27] LABS: HEPATITIS A AB IGM NEGATIVE (NEGATIVE)
[2021-01-12 20:00] VITALS: BP 168/90
[2021-01-12] MEDS: ATORVASTATIN CALCIUM 40MG TABLET PO SCH (21:25)
[2021-01-13] VITALS: BP 151/58
[2021-01-13] MEDS: LORAZEPAM 1MG TABLET PO PRN ×3 (00:22→21:20)
[2021-01-13] MEDS: NITROGLYCERIN OINT 1GM/INCH UDPKT TD SCH ×4 (00:22→17:24)
[2021-01-13] MEDS: METOCLOPRAMIDE HCL 10MG/2ML VIAL IV SCH ×4 (00:24→17:24)
[2021-01-13] MEDS: HYDROMORPHONE HCL/PF 2MG/ML CPJ IV PRN ×4 (01:42→21:21)
[2021-01-13] MEDS: IPRATROPIUM/ALBUTEROL 0.5-3(2.5)MG/3ML NEB HHN SCH ×4 (01:53→21:30)
[2021-01-13 04:00] VITALS: BP 169/78
[2021-01-13] MEDS: OMEPRAZOLE 20MG CAPSULE EXTENDED RELEASE PO SCH ×2 (06:24→21:20)
[2021-01-13] MEDS: HYDRALAZINE HCL 100MG TABLET PO SCH ×3 (06:24→22:28)
[2021-01-13] MEDS: BENZONATATE 100MG CAPSULE PO SCH ×3 (06:25→21:19)
[2021-01-13] MEDS: BLOOD SUGAR DIAGNOSTIC STRIP TEST SCH ×4 (06:43→21:03)
[2021-01-13] MEDS: INSULIN LISPRO 100 UNITS/ML SUBCUT SCH ×4 (07:40→21:00)
[2021-01-13 08:00] VITALS: BP 161/49
[2021-01-13] MEDS: FOLIC ACID/VITAMIN B COMP W-C TABLET PO SCH (09:10)
[2021-01-13] MEDS: AMLODIPINE 5MG TABLET PO SCH ×2 (09:10→21:20)
[2021-01-13] MEDS: METOPROLOL TARTRATE 50MG TABLET PO SCH ×2 (09:11→21:21)
[2021-01-13] MEDS: ASPIRIN 81MG TABLET PO SCH (09:11)
[2021-01-13] MEDS: INSULIN GLARGINE UD 100 UNITS/ML SYR SUBCUT SCH ×2 (09:15→21:03)
[2021-01-13 09:52] LABS: HEMATOCRIT. 24.7 % (36.0-48.0); HEMOGLOBIN. 7.9 g/dL (12.0-16.0); MEAN CORPUSCULAR HEMOGLOBIN 29.1 pg (28.0-32.0); MEAN CORPUSCULAR VOLUME 91.1 fL (81.0-99.0); PLATELET 439 x1000/uL (130-400); RED BLOOD CELL COUNT 2.71 mill/uL (4.2-5.4); RED CELL DISTRIBUTION WIDTH 17.8 % (11.6-14.6)
[2021-01-13 11:04] LABS: NUCLEATED RED BLOOD CELLS 1 /100 WBC; PLATELET ESTIMATE INCREASED
[2021-01-13 12:00] VITALS: BP 112/71
[2021-01-13] MEDS ORDERED: ASPI-1160 PO ×2 (13:16)
[2021-01-13] MEDS ORDERED: BENZ100C86 PO (13:16)
[2021-01-13] MEDS ORDERED: AMLO5TAB88 PO (13:16)
[2021-01-13] MEDS ORDERED: OMEP20CA14 PO (13:16)
[2021-01-13] MEDS ORDERED: METO-539 PO ×2 (13:16)
[2021-01-13] MEDS ORDERED: HYDR100T26 PO (13:16)
[2021-01-13 16:00] VITALS: BP 129/40
[2021-01-13 20:00] VITALS: BP 157/85
[2021-01-13] MEDS: ATORVASTATIN CALCIUM 40MG TABLET PO SCH (21:20)
[2021-01-14] VITALS (8 sets, daily range): BP systolic 113–165; BP diastolic 56–82
[2021-01-14] MEDS: METOCLOPRAMIDE HCL 10MG/2ML VIAL IV SCH ×5 (00:01→23:07)
[2021-01-14] MEDS: NITROGLYCERIN OINT 1GM/INCH UDPKT TD SCH ×5 (00:02→23:07)
[2021-01-14] MEDS: CYCLOBENZAPRINE 10MG TABLET PO PRN (00:31)
[2021-01-14] MEDS: HYDROMORPHONE HCL/PF 2MG/ML CPJ IV PRN ×5 (01:55→23:07)
[2021-01-14] MEDS: IPRATROPIUM/ALBUTEROL 0.5-3(2.5)MG/3ML NEB HHN SCH ×4 (02:29→20:28)
[2021-01-14] MEDS: LORAZEPAM 1MG TABLET PO PRN ×3 (04:47→23:07)
[2021-01-14] MEDS: BLOOD SUGAR DIAGNOSTIC STRIP TEST SCH ×4 (06:22→21:00)
[2021-01-14] MEDS: OMEPRAZOLE 20MG CAPSULE EXTENDED RELEASE PO SCH ×2 (06:31→21:10)
[2021-01-14] MEDS: BENZONATATE 100MG CAPSULE PO SCH ×3 (06:31→21:11)
[2021-01-14] MEDS: HYDRALAZINE HCL 100MG TABLET PO SCH ×3 (06:32→22:00)
[2021-01-14] MEDS: INSULIN LISPRO 100 UNITS/ML SUBCUT SCH ×4 (06:33→22:22)
[2021-01-14] MEDS: FOLIC ACID/VITAMIN B COMP W-C TABLET PO SCH (09:49)
[2021-01-14] MEDS: AMLODIPINE 5MG TABLET PO SCH ×2 (09:49→21:10)
[2021-01-14] MEDS: ASPIRIN 81MG TABLET PO SCH (09:49)
[2021-01-14] MEDS: INSULIN GLARGINE UD 100 UNITS/ML SYR SUBCUT SCH ×3 (10:00→22:22)
[2021-01-14] MEDS: DEXTROSE 50% WATER 50ML SYRINGE IV PRN (10:47)
[2021-01-14] MEDS: ATORVASTATIN CALCIUM 40MG TABLET PO SCH (21:10)
[2021-01-15] VITALS (8 sets, daily range): BP systolic 126–187; BP diastolic 53–91
[2021-01-15] MEDS: HYDROMORPHONE HCL/PF 2MG/ML CPJ IV PRN ×5 (03:15→22:23)
[2021-01-15] MEDS: IPRATROPIUM/ALBUTEROL 0.5-3(2.5)MG/3ML NEB HHN SCH ×4 (03:19→21:33)
[2021-01-15] MEDS: HYDRALAZINE HCL 100MG TABLET PO SCH ×3 (05:26→22:22)
[2021-01-15] MEDS: BENZONATATE 100MG CAPSULE PO SCH ×3 (05:26→22:22)
[2021-01-15] MEDS: METOCLOPRAMIDE HCL 10MG/2ML VIAL IV SCH ×3 (05:26→17:27)
[2021-01-15] MEDS: NITROGLYCERIN OINT 1GM/INCH UDPKT TD SCH ×3 (05:26→17:26)
[2021-01-15] MEDS: BLOOD SUGAR DIAGNOSTIC STRIP TEST SCH ×4 (05:27→20:45)
[2021-01-15] MEDS: OMEPRAZOLE 20MG CAPSULE EXTENDED RELEASE PO SCH ×2 (06:15→22:21)
[2021-01-15] MEDS: INSULIN LISPRO 100 UNITS/ML SUBCUT SCH ×4 (06:18→20:45)
[2021-01-15] MEDS: FOLIC ACID/VITAMIN B COMP W-C TABLET PO SCH (08:10)
[2021-01-15] MEDS: AMLODIPINE 5MG TABLET PO SCH ×2 (08:10→22:22)
[2021-01-15] MEDS: LORAZEPAM 1MG TABLET PO PRN (10:19)
[2021-01-15] MEDS: INSULIN GLARGINE UD 100 UNITS/ML SYR SUBCUT SCH ×2 (10:20→22:00)
[2021-01-15] MEDS: LABETALOL 5MG/ML SYR 20 MG/4 ML SYRINGE IV PRN (20:35)
[2021-01-15] MEDS: ONDANSETRON HCL 4MG/2ML INJ IV PRN (21:26)
[2021-01-16] VITALS: BP 150/70
[2021-01-16] MEDS: NITROGLYCERIN OINT 1GM/INCH UDPKT TD SCH ×4 (00:16→18:03)
[2021-01-16] MEDS: METOCLOPRAMIDE HCL 10MG/2ML VIAL IV SCH ×4 (00:16→18:03)
[2021-01-16] MEDS: LORAZEPAM 1MG TABLET PO PRN ×2 (00:23→21:33)
[2021-01-16] MEDS: IPRATROPIUM/ALBUTEROL 0.5-3(2.5)MG/3ML NEB HHN SCH ×4 (03:38→21:48)
[2021-01-16 04:00] VITALS: BP 159/53
[2021-01-16] MEDS: HYDROMORPHONE HCL/PF 2MG/ML CPJ IV PRN ×3 (05:22→22:26)
[2021-01-16] MEDS: HYDRALAZINE HCL 100MG TABLET PO SCH ×3 (06:27→21:30)
[2021-01-16] MEDS: BENZONATATE 100MG CAPSULE PO SCH (06:28)
[2021-01-16] MEDS: OMEPRAZOLE 20MG CAPSULE EXTENDED RELEASE PO SCH ×2 (06:29→21:29)
[2021-01-16] MEDS: INSULIN LISPRO 100 UNITS/ML SUBCUT SCH ×4 (06:32→21:00)
[2021-01-16] MEDS: BLOOD SUGAR DIAGNOSTIC STRIP TEST SCH ×4 (06:33→21:00)
[2021-01-16 08:00] VITALS: BP 165/66
[2021-01-16 08:32] LABS: BASOPHILS % 1.4 % (0.0-2.0); EOSINOPHILS % 2.5 % (0.0-5.0); HEMATOCRIT. 22.8 % (36.0-48.0); HEMOGLOBIN. 7.4 g/dL (12.0-16.0); MEAN CORPUSCULAR HEMOGLOBIN 29.4 pg (28.0-32.0); MEAN CORPUSCULAR VOLUME 90.1 fL (81.0-99.0); MEAN PLATELET VOLUME 8.7 fl (7.4-10.4); MONOCYTES % 8.7 % (2.0-8.0); NEUTROPHILS % 79.4 % (40.0-76.0); PLATELET 346 x1000/uL (130-400); RED BLOOD CELL COUNT 2.54 mill/uL (4.2-5.4); RED CELL DISTRIBUTION WIDTH 18.2 % (11.6-14.6)
[2021-01-16] MEDS: AMLODIPINE 5MG TABLET PO SCH ×2 (08:48→21:29)
[2021-01-16] MEDS: FOLIC ACID/VITAMIN B COMP W-C TABLET PO SCH (08:53)
[2021-01-16] MEDS: ONDANSETRON HCL 4MG/2ML INJ IV PRN (08:56)
[2021-01-16] MEDS: INSULIN GLARGINE UD 100 UNITS/ML SYR SUBCUT SCH ×2 (09:23→22:00)
[2021-01-16 11:47] VITALS: BP 187/78
[2021-01-16] MEDS ORDERED: SODIUM BICARBONATE 8.4% 1 MEQ/ML 50ML SYR IV SCH (12:00)
[2021-01-16] MEDS: DEXTROSE 50% WATER 50ML SYRINGE IV PRN (12:19)
[2021-01-16] MEDS: INSULIN REGULAR (HUMULIN R) UD 100 UNITS/ML SYR IV SCH ×2 (12:49→12:52)
[2021-01-16] MEDS ORDERED: DEXTROSE 50% WATER 50ML SYRINGE IV SCH (13:00)
[2021-01-16 16:00] VITALS: BP 165/66
[2021-01-16 18:02] VITALS: BP 188/82
[2021-01-16] MEDS: LABETALOL 5MG/ML SYR 20 MG/4 ML SYRINGE IV PRN (18:03)
[2021-01-16 18:49] LABS: BG BASE EXCESS 3.4 mmol/L (-2.0-2.0); BG CARBOXYHEMOGLOBIN 0.8 % (0.5-1.5); BG DEOXYHEMOGLOBIN 0.4 % (0.0-5.0); BG FRACTION INSPIRED OXYGEN 100; BG HCO3 ACT 27.5 mmol/L (22.0-26.0); BG METHEMOGLOBIN 0.6 % (0.0-1.5); BG OXYGEN SATURATION 99.6 % (92.0-98.5); BG OXYHEMOGLOBIN 98.2 % (94.0-97.0); BG PCO2 39.8 mmHg (35.0-45.0); BG PH 7.457 (7.350-7.450); BG PO2 325.8 mmHg (75.0-100.0); BG SAMPLE SITE RIGHT BRACHIAL; BG TOTAL HEMOGLOBIN 8.2 g/dL (12.0-18.0); BG VENT MODE MASK - NRB
[2021-01-17] MEDS: NITROGLYCERIN OINT 1GM/INCH UDPKT TD SCH ×4 (00:25→17:22)
[2021-01-17] MEDS: METOCLOPRAMIDE HCL 10MG/2ML VIAL IV SCH ×4 (00:30→17:22)
[2021-01-17] MEDS: HYDROMORPHONE HCL/PF 2MG/ML CPJ IV PRN ×4 (02:48→21:37)
[2021-01-17 03:01] VITALS: BP 172/46
[2021-01-17] MEDS: IPRATROPIUM/ALBUTEROL 0.5-3(2.5)MG/3ML NEB HHN SCH ×4 (03:01→21:52)
[2021-01-17] MEDS: OMEPRAZOLE 20MG CAPSULE EXTENDED RELEASE PO SCH ×2 (06:02→21:34)
[2021-01-17] MEDS: HYDRALAZINE HCL 100MG TABLET PO SCH ×3 (06:02→21:34)
[2021-01-17] MEDS: BLOOD SUGAR DIAGNOSTIC STRIP TEST SCH ×4 (06:45→21:37)
[2021-01-17] MEDS: INSULIN LISPRO 100 UNITS/ML SUBCUT SCH ×4 (06:56→21:32)
[2021-01-17 08:00] VITALS: BP 178/67
[2021-01-17] MEDS: FOLIC ACID/VITAMIN B COMP W-C TABLET PO SCH (08:35)
[2021-01-17] MEDS: AMLODIPINE 5MG TABLET PO SCH ×2 (08:35→21:35)
[2021-01-17] MEDS: LABETALOL 5MG/ML SYR 20 MG/4 ML SYRINGE IV PRN (08:36)
[2021-01-17] MEDS: INSULIN GLARGINE UD 100 UNITS/ML SYR SUBCUT SCH (10:19)
[2021-01-17] MEDS: HYDROCODONE/ACETAMINOPHEN 5/325MG TABLET PO PRN (10:33)
[2021-01-17] MEDS: DEXTROSE 50% WATER 50ML SYRINGE IV PRN (11:27)
[2021-01-17 12:00] VITALS: BP 107/64
[2021-01-17] MEDS: DEXAMETHASONE 4MG/ML 1ML VIAL IV SCH (13:32)
[2021-01-17] MEDS ORDERED: CEFEPIME 2,000 MG in DEXT 5% WATER 100 ML IV SCH (13:45)
[2021-01-17 16:00] VITALS: BP 143/61
[2021-01-17 16:17] LABS: HEMATOCRIT. 22.4 % (36.0-48.0); HEMOGLOBIN. 7.3 g/dL (12.0-16.0); MEAN CORPUSCULAR HEMOGLOBIN 29.6 pg (28.0-32.0); MEAN CORPUSCULAR VOLUME 90.8 fL (81.0-99.0); MEAN PLATELET VOLUME 9.3 fl (7.4-10.4); PLATELET 315 x1000/uL (130-400); RED BLOOD CELL COUNT 2.47 mill/uL (4.2-5.4)
[2021-01-17] MEDS: CEFEPIME 1,000 MG in DEXTROSE 5% WATER 50 ML IV SCH (16:22)
[2021-01-17 16:35] LABS: PLATELET ESTIMATE NORMAL
[2021-01-17 20:00] VITALS: BP 141/60
[2021-01-18] VITALS: BP 165/62
[2021-01-18] MEDS: METOCLOPRAMIDE HCL 10MG/2ML VIAL IV SCH ×4 (00:49→18:43)
[2021-01-18] MEDS: NITROGLYCERIN OINT 1GM/INCH UDPKT TD SCH ×4 (00:49→18:43)
[2021-01-18] MEDS: IPRATROPIUM/ALBUTEROL 0.5-3(2.5)MG/3ML NEB HHN SCH ×4 (01:36→21:44)
[2021-01-18 04:00] VITALS: BP 161/49
[2021-01-18] MEDS: LORAZEPAM 1MG TABLET PO PRN ×2 (04:06→20:46)
[2021-01-18] MEDS: OMEPRAZOLE 20MG CAPSULE EXTENDED RELEASE PO SCH ×2 (05:19→20:45)
[2021-01-18] MEDS: HYDRALAZINE HCL 100MG TABLET PO SCH ×3 (05:19→21:43)
[2021-01-18] MEDS: BLOOD SUGAR DIAGNOSTIC STRIP TEST SCH ×4 (05:40→20:46)
[2021-01-18] MEDS: INSULIN LISPRO 100 UNITS/ML SUBCUT SCH ×4 (06:10→21:36)
[2021-01-18] MEDS: HYDROMORPHONE HCL/PF 2MG/ML CPJ IV PRN ×4 (06:12→22:59)
[2021-01-18 07:30] LABS: HEMATOCRIT. 23.6 % (36.0-48.0); HEMOGLOBIN. 7.6 g/dL (12.0-16.0); MEAN CORPUSCULAR HEMOGLOBIN 29.6 pg (28.0-32.0); MEAN CORPUSCULAR VOLUME 92.3 fL (81.0-99.0); MEAN PLATELET VOLUME 9.3 fl (7.4-10.4); PLATELET 335 x1000/uL (130-400); RED BLOOD CELL COUNT 2.56 mill/uL (4.2-5.4); RED CELL DISTRIBUTION WIDTH 17.9 % (11.6-14.6)
[2021-01-18 08:00] VITALS: BP 148/63
[2021-01-18] MEDS: AMLODIPINE 5MG TABLET PO SCH ×2 (09:00→20:43)
[2021-01-18] MEDS: FOLIC ACID/VITAMIN B COMP W-C TABLET PO SCH (09:54)
[2021-01-18] MEDS: DEXAMETHASONE 4MG/ML 1ML VIAL IV SCH (09:54)
[2021-01-18 10:36] LABS: PLATELET ESTIMATE NORMAL
[2021-01-18 12:00] VITALS: BP 156/50
[2021-01-18 16:00] VITALS: BP 66/42
[2021-01-18 17:01] LABS: BG CARBOXYHEMOGLOBIN 0.6 % (0.5-1.5); BG DEOXYHEMOGLOBIN 43.1 % (0.0-5.0); BG HCO3 ACT 22.3 mmol/L (22.0-26.0); BG METHEMOGLOBIN 0.1 % (0.0-1.5); BG OXYGEN SATURATION 56.6 % (92.0-98.5); BG OXYHEMOGLOBIN 56.2 % (94.0-97.0); BG PCO2 36.3 mmHg (35.0-45.0); BG PH 7.407 (7.350-7.450); BG PO2 31.2 mmHg (75.0-100.0); BG SAMPLE SITE RIGHT RADIAL; BG TOTAL HEMOGLOBIN 9.1 g/dL (12.0-18.0); BG VENT MODE ROOM AIR
[2021-01-18] MEDS: CEFEPIME 1,000 MG in DEXTROSE 5% WATER 50 ML IV SCH (19:06)
[2021-01-18 20:00] VITALS: BP 101/58
[2021-01-18] MEDS ORDERED: INSULIN LISPRO 100 UNITS/ML SUBCUT ONE (21:30)
[2021-01-19] VITALS: BP 167/71
[2021-01-19] MEDS: METOCLOPRAMIDE HCL 10MG/2ML VIAL IV SCH ×4 (00:37→17:28)
[2021-01-19] MEDS: NITROGLYCERIN OINT 1GM/INCH UDPKT TD SCH ×3 (00:37→11:57)
[2021-01-19] MEDS: DEXTROSE 50% WATER 50ML SYRINGE IV PRN ×2 (01:03→05:56)
[2021-01-19] MEDS: IPRATROPIUM/ALBUTEROL 0.5-3(2.5)MG/3ML NEB HHN SCH ×4 (02:20→21:47)
[2021-01-19 04:00] VITALS: BP 159/57
[2021-01-19] MEDS: HYDROMORPHONE HCL/PF 2MG/ML CPJ IV PRN ×5 (04:00→21:38)
[2021-01-19 04:46] LABS: HEMOGLOBIN. 7.1 g/dL (12.0-16.0); MEAN CORPUSCULAR HEMOGLOBIN 29.4 pg (28.0-32.0); MEAN CORPUSCULAR VOLUME 90.9 fL (81.0-99.0); MEAN PLATELET VOLUME 9.4 fl (7.4-10.4); PLATELET 308 x1000/uL (130-400); RED BLOOD CELL COUNT 2.42 mill/uL (4.2-5.4); RED CELL DISTRIBUTION WIDTH 17.5 % (11.6-14.6)
[2021-01-19] MEDS: HYDRALAZINE HCL 100MG TABLET PO SCH ×3 (05:56→22:52)
[2021-01-19] MEDS: OMEPRAZOLE 20MG CAPSULE EXTENDED RELEASE PO SCH ×2 (05:57→20:24)
[2021-01-19] MEDS: BLOOD SUGAR DIAGNOSTIC STRIP TEST SCH ×4 (06:21→20:25)
[2021-01-19] MEDS: INSULIN LISPRO 100 UNITS/ML SUBCUT SCH ×4 (06:21→20:24)
[2021-01-19] MEDS: AMLODIPINE 5MG TABLET PO SCH ×2 (07:58→20:24)
[2021-01-19] MEDS: FOLIC ACID/VITAMIN B COMP W-C TABLET PO SCH (07:58)
[2021-01-19] MEDS: DEXAMETHASONE 4MG/ML 1ML VIAL IV SCH (07:58)
[2021-01-19 08:00] VITALS: BP 162/79
[2021-01-19] MEDS: LORAZEPAM 1MG TABLET PO PRN ×2 (11:01→21:38)
[2021-01-19 12:00] VITALS: BP 153/43
[2021-01-19] MEDS: CEFEPIME 1,000 MG in DEXTROSE 5% WATER 50 ML IV SCH (14:54)
[2021-01-19 15:30] LABS: PLATELET ESTIMATE NORMAL
[2021-01-19 16:00] VITALS: BP 132/60
[2021-01-19 20:00] VITALS: BP 167/58
[2021-01-19] MEDS ORDERED: SORBITOL 70% SOLN 30ML PO SCH (22:00)
[2021-01-19] MEDS ORDERED: METOCLOPRAMIDE HCL 10MG/2ML VIAL IV SCH (22:00)
[2021-01-20] VITALS: BP 163/62
[2021-01-20] MEDS: METOCLOPRAMIDE HCL 10MG/2ML VIAL IV SCH ×4 (00:37→17:54)
[2021-01-20] MEDS: IPRATROPIUM/ALBUTEROL 0.5-3(2.5)MG/3ML NEB HHN SCH ×4 (01:40→21:00)
[2021-01-20] MEDS: HYDROMORPHONE HCL/PF 2MG/ML CPJ IV PRN ×3 (01:46→13:37)
[2021-01-20] MEDS ORDERED: SORBITOL 70% SOLN 30ML PO SCH (02:00)
[2021-01-20] MEDS ORDERED: METOCLOPRAMIDE HCL 10MG/2ML VIAL IV SCH (02:00)
[2021-01-20 04:00] VITALS: BP 154/64
[2021-01-20] MEDS: LORAZEPAM 1MG TABLET PO PRN ×3 (04:00→22:11)
[2021-01-20 04:43] LABS: BASOPHILS % 0.5 % (0.0-2.0); EOSINOPHILS % 0.4 % (0.0-5.0); HEMATOCRIT. 22.9 % (36.0-48.0); HEMOGLOBIN. 7.4 g/dL (12.0-16.0); LYMPHOCYTES % 7.7 % (20.0-50.0); MEAN CORPUSCULAR HEMOGLOBIN 29.3 pg (28.0-32.0); MEAN CORPUSCULAR VOLUME 90.8 fL (81.0-99.0); MEAN PLATELET VOLUME 9.1 fl (7.4-10.4); NEUTROPHILS % 80.4 % (40.0-76.0); PLATELET 338 x1000/uL (130-400); RED BLOOD CELL COUNT 2.52 mill/uL (4.2-5.4); RED CELL DISTRIBUTION WIDTH 16.8 % (11.6-14.6)
[2021-01-20] MEDS: BLOOD SUGAR DIAGNOSTIC STRIP TEST SCH ×5 (06:15→21:00)
[2021-01-20] MEDS: OMEPRAZOLE 20MG CAPSULE EXTENDED RELEASE PO SCH ×2 (06:19→21:45)
[2021-01-20] MEDS: HYDRALAZINE HCL 100MG TABLET PO SCH ×3 (06:19→21:45)
[2021-01-20] MEDS: INSULIN LISPRO 100 UNITS/ML SUBCUT SCH ×4 (06:20→22:10)
[2021-01-20 08:00] VITALS: BP 150/62
[2021-01-20] MEDS: FOLIC ACID/VITAMIN B COMP W-C TABLET PO SCH (10:32)
[2021-01-20] MEDS: AMLODIPINE 5MG TABLET PO SCH ×2 (10:32→21:45)
[2021-01-20] MEDS: DEXAMETHASONE 4MG/ML 1ML VIAL IV SCH (10:33)
[2021-01-20 12:00] VITALS: BP 151/68
[2021-01-20] MEDS ORDERED: *PATIENT'S OWN MEDICATION STORAGE XX SCH (12:45)
[2021-01-20 16:00] VITALS: BP 157/62
[2021-01-20] MEDS: CEFEPIME 1,000 MG in DEXTROSE 5% WATER 50 ML IV SCH (16:24)
[2021-01-20] MEDS: HYDROCODONE/ACETAMINOPHEN 5/325MG TABLET PO PRN (18:27)
[2021-01-20 20:00] VITALS: BP 162/63
[2021-01-21] VITALS: BP 173/60
[2021-01-21] MEDS: HYDROCODONE/ACETAMINOPHEN 5/325MG TABLET PO PRN ×4 (00:27→17:18)
[2021-01-21] MEDS ORDERED: INSULIN LISPRO 100 UNITS/ML SUBCUT SCH (00:30)
[2021-01-21] MEDS: INSULIN LISPRO 100 UNITS/ML SUBCUT SCH ×4 (00:30→17:34)
[2021-01-21] MEDS: METOCLOPRAMIDE HCL 10MG/2ML VIAL IV SCH ×4 (00:55→18:00)
[2021-01-21] MEDS: IPRATROPIUM/ALBUTEROL 0.5-3(2.5)MG/3ML NEB HHN SCH ×5 (02:43→15:30)
[2021-01-21 04:00] VITALS: BP 180/68
[2021-01-21] MEDS: OMEPRAZOLE 20MG CAPSULE EXTENDED RELEASE PO SCH (06:06)
[2021-01-21] MEDS: HYDRALAZINE HCL 100MG TABLET PO SCH ×2 (06:07→14:53)
[2021-01-21] MEDS: BLOOD SUGAR DIAGNOSTIC STRIP TEST SCH ×3 (06:14→17:00)
[2021-01-21 08:00] VITALS: BP 164/79
[2021-01-21] MEDS: AMLODIPINE 5MG TABLET PO SCH (08:52)
[2021-01-21] MEDS: FOLIC ACID/VITAMIN B COMP W-C TABLET PO SCH (08:52)
[2021-01-21] MEDS: DEXAMETHASONE 4MG/ML 1ML VIAL IV SCH (08:52)
[2021-01-21 09:01] LABS: BASOPHILS % 0.4 % (0.0-2.0); EOSINOPHILS % 0.6 % (0.0-5.0); HEMATOCRIT. 24.8 % (36.0-48.0); LYMPHOCYTES % 7.2 % (20.0-50.0); MEAN CORPUSCULAR HEMOGLOBIN 30.1 pg (28.0-32.0); MEAN CORPUSCULAR VOLUME 92.9 fL (81.0-99.0); MEAN PLATELET VOLUME 9.3 fl (7.4-10.4); MONOCYTES % 11.6 % (2.0-8.0); NEUTROPHILS % 80.2 % (40.0-76.0); PLATELET 372 x1000/uL (130-400); RED BLOOD CELL COUNT 2.67 mill/uL (4.2-5.4); RED CELL DISTRIBUTION WIDTH 17.4 % (11.6-14.6)
[2021-01-21] MEDS: HYDROMORPHONE HCL/PF 2MG/ML CPJ IV PRN ×2 (09:55→14:06)
[2021-01-21] MEDS: LORAZEPAM 1MG TABLET PO PRN (10:18)
[2021-01-21 12:48] VITALS: BP 171/50
[2021-01-21] MEDS: CEFEPIME 1,000 MG in DEXTROSE 5% WATER 50 ML IV SCH (15:20)
[2021-01-21 16:00] VITALS: BP 163/60
[2021-01-21 18:04] VITALS: BP 163/60
== END 2021-01-21 20:01 | disposition home health service (06) | DRG 720 ==
LOC: ER 10:04 → EDBEDREQ 12:31 → EDBEDREQSVC 12:31 → 7WST 12:31 → EDBEDREQSVC 12:37 → EDBEDREQ 12:48 → EDBEDREQSVC 13:02 → EDBEDREQTM 12-17 08:03 → EDBEDREQDT 12-17 08:03 → EDBEDREQSVC 12-17 08:03 → ENRESERV 12-17 09:14 → 5WST 01-04 05:30 → 6EST 01-20 11:57
PROVIDERS: ADMIT Internal Medicine; ATTEND Internal Medicine
PROC: 02HV33Z Insertion of Infusion Device into Superior Vena Cava, Percutaneous Approach (ICD-10-PCS; principal; 2020-12-16)
PROC: B548ZZA Ultrasonography of Superior Vena Cava, Guidance (ICD-10-PCS; 2020-12-16)
PROC: 5A1D70Z Performance of Urinary Filtration, Intermittent, Less than 6 Hours Per Day (ICD-10-PCS; 2020-12-16)
PROC: 5A09457 Assistance with Respiratory Ventilation, 24-96 Consecutive Hours, Continuous Positive Airway Pressure (ICD-10-PCS; 2020-12-16)
PROC: 30233N1 Transfusion of Nonautologous Red Blood Cells into Peripheral Vein, Percutaneous Approach (ICD-10-PCS; 2020-12-17)
PROC: 5A1D70Z Performance of Urinary Filtration, Intermittent, Less than 6 Hours Per Day (ICD-10-PCS; 2020-12-17)
PROC: 5A1D70Z Performance of Urinary Filtration, Intermittent, Less than 6 Hours Per Day (ICD-10-PCS; 2020-12-19)
PROC: 5A09357 Assistance with Respiratory Ventilation, Less than 24 Consecutive Hours, Continuous Positive Airway Pressure (ICD-10-PCS; 2020-12-20)
PROC: 5A1D70Z Performance of Urinary Filtration, Intermittent, Less than 6 Hours Per Day (ICD-10-PCS; 2020-12-21)
PROC: 5A09357 Assistance with Respiratory Ventilation, Less than 24 Consecutive Hours, Continuous Positive Airway Pressure (ICD-10-PCS; 2020-12-21)
PROC: 5A09357 Assistance with Respiratory Ventilation, Less than 24 Consecutive Hours, Continuous Positive Airway Pressure (ICD-10-PCS; 2020-12-22)
PROC: 5A1D70Z Performance of Urinary Filtration, Intermittent, Less than 6 Hours Per Day (ICD-10-PCS; 2020-12-23)
PROC: 5A09557 Assistance with Respiratory Ventilation, Greater than 96 Consecutive Hours, Continuous Positive Airway Pressure (ICD-10-PCS; 2020-12-23)
PROC: 5A1D70Z Performance of Urinary Filtration, Intermittent, Less than 6 Hours Per Day (ICD-10-PCS; 2020-12-26)
PROC: 5A1D70Z Performance of Urinary Filtration, Intermittent, Less than 6 Hours Per Day (ICD-10-PCS; 2020-12-28)
PROC: 5A1D70Z Performance of Urinary Filtration, Intermittent, Less than 6 Hours Per Day (ICD-10-PCS; 2020-12-29)
PROC: 5A1D70Z Performance of Urinary Filtration, Intermittent, Less than 6 Hours Per Day (ICD-10-PCS; 2020-12-30)
PROC: 5A1D70Z Performance of Urinary Filtration, Intermittent, Less than 6 Hours Per Day (ICD-10-PCS; 2021-01-01)
PROC: 5A1D70Z Performance of Urinary Filtration, Intermittent, Less than 6 Hours Per Day (ICD-10-PCS; 2021-01-03)
PROC: 5A1D70Z Performance of Urinary Filtration, Intermittent, Less than 6 Hours Per Day (ICD-10-PCS; 2021-01-05)
PROC: 5A1D70Z Performance of Urinary Filtration, Intermittent, Less than 6 Hours Per Day (ICD-10-PCS; 2021-01-08)
PROC: 5A1D70Z Performance of Urinary Filtration, Intermittent, Less than 6 Hours Per Day (ICD-10-PCS; 2021-01-13)
PROC: 5A1D70Z Performance of Urinary Filtration, Intermittent, Less than 6 Hours Per Day (ICD-10-PCS; 2021-01-16)
PROC: 5A1D70Z Performance of Urinary Filtration, Intermittent, Less than 6 Hours Per Day (ICD-10-PCS; 2021-01-17)
PROC: 5A1D70Z Performance of Urinary Filtration, Intermittent, Less than 6 Hours Per Day (ICD-10-PCS; 2021-01-18)
PROC: 5A1D70Z Performance of Urinary Filtration, Intermittent, Less than 6 Hours Per Day (ICD-10-PCS; 2021-01-20)
DX: A41.89 Other specified sepsis (principal); U07.1 COVID-19; J96.01 Acute respiratory failure with hypoxia; J12.82 Pneumonia due to coronavirus disease 2019; I50.33 Acute on chronic diastolic (congestive) heart failure; E11.22 Type 2 diabetes mellitus with diabetic chronic kidney disease; E11.649 Type 2 diabetes mellitus with hypoglycemia without coma; E78.5 Hyperlipidemia, unspecified; E87.2 Acidosis; I13.2 Hypertensive heart and chronic kidney disease with heart failure and with stage 5 chronic kidney disease, or end stage renal disease; N18.6 End stage renal disease; I16.0 Hypertensive urgency; I25.10 Atherosclerotic heart disease of native coronary artery without angina pectoris; L89.152 Pressure ulcer of sacral region, stage 2; E87.5 Hyperkalemia; R18.8 Other ascites; K92.2 Gastrointestinal hemorrhage, unspecified; D63.1 Anemia in chronic kidney disease; E87.1 Hypo-osmolality and hyponatremia; Z82.49 Family history of ischemic heart disease and other diseases of the circulatory system; Z85.528 Personal history of other malignant neoplasm of kidney; Z90.710 Acquired absence of both cervix and uterus; Z99.2 Dependence on renal dialysis; Z79.1 Long term (current) use of non-steroidal anti-inflammatories (NSAID); Z79.4 Long term (current) use of insulin; Z79.899 Other long term (current) drug therapy; A08.39 Other viral enteritis
CPT/HCPCS: 36415; 36600; 71045; 71275; 74176; 76937; 80048; 80051; 80053; 80061; 80320; 82040; 82270; 82375; 82607; 82728; 82746; 82805; 82962; 83010; 83540; 83550; 83615; 83735; 83880; 84100; 84132; 84134; 84145; 84443; 84484; 85014; 85018; 85025; 85044; 85049; 85384; 86140; 86705; 86706; 86709; 86803; 86850; 86900; 86920; 87070; 87340; 87426; 87635; 93005; 93306; 94640; 94660; 96365; 97110; 97116; 97162; 97530; 99291; C1725; C1893; C9113; J0456; J0692; J0696; J0885; J1100; J1170; J1650; J1815; J2270; J2405; J2765; J3490; J7040; J7060; J8597; P9016; Q9967; A4315; G0480